=== PATIENT | female | born 1950 | race Caucasian/White ===

== ENCOUNTER → 2017-06-12 09:54 | Outpatient (CLI) | payer MEDICARE, SELFPAY ==
--- NOTE | 2017-06-12 09:56 | HPBI_ITS ---
MAMMOGRAPHY - BILATERAL SCREENING REASON FOR EXAM: Female, 67 years old. Routine annual screening examination. PERTINENT HISTORY: Mother with breast cancer. Grandmother with breast cancer. TECHNIQUE: Digital bilateral breast linn (3D mammographic acquisition) in the CC and MLO projections. 2-D mediolateral oblique (MLO) and craniocaudad (CC) views of both breasts were obtained. CAD: Full Field Digital Mammography with Computer Added Detection was performed. COMPARISON: Comparison is made with prior study dated June 09, 2016 and June 27, 2011. FINDINGS: Breast Composition: There are scattered areas of fibroglandular density. There is a 1 cm x 1 cm well-defined nodule in the deep mid medial portion of the left breast. Correlation with ultrasound is recommended. The previously seen 5 mm nodule in the right breast is unchanged. No clustered calcification is seen. No other significant abnormalities are identified. HPBI/SCREENING MAMM (CAD), BILAT IMPRESSION: 1 cm well-defined nodule in the deep medial portion of the left breast. Correlation with ultrasound is recommended. ASSESSMENT CATEGORY: BIRADS Category 0: Incomplete. Need additional imaging evaluation. A letter regarding these results will be sent to the patient by the facility within 30 days. Approximately 10% of breast cancers are not detected by mammography. A normal mammogram should not delay biopsy of a clinically suspicious abnormality. [id number] Electronically Signed: Bryn Funk MD at 12:41 EDT Tel [phone], Service support ,
== END ==
PROVIDERS: Family Provider Family Medicine; PCP Family Medicine; Visit Provider Family Medicine
DX: Z12.31 Encounter for screening mammogram for malignant neoplasm of breast (principal)
CPT/HCPCS: 77063; 77067

== ENCOUNTER → 2017-06-14 12:22 | Outpatient (CLI) | payer MEDICARE, SELFPAY ==
--- NOTE | 2017-06-14 12:25 | US_ITS ---
STUDY: ULTRASOUND BREAST - LEFT REASON FOR EXAM: Female, 67 years old. Abnormal screening mammogram. TECHNIQUE: Axial and longitudinal images of the LEFT breast were performed with a high resolution ultrasound transducer. COMPARISON: Comparison is made with prior mammogram dated June 12, 2017. FINDINGS: LEFT Breast: There is a 9 mm x 8 mm x 3 mm cyst at the 8:00 position of the breast at 5 cm from nipple. US/Breast Limited Unilateral IMPRESSION: The mammographic abnormality corresponds to a 9 mm x 8 mm x 3 mm cyst. ASSESSMENT CATEGORY: BIRADS Category 2: Benign. A letter regarding these results will be sent to the patient by the facility within 30 days. Electronically Signed: Bryn Funk MD at 8:57 EDT Tel [phone], Service support ,
== END ==
PROVIDERS: Family Provider Family Medicine; PCP Family Medicine; Visit Provider Family Medicine
DX: R92.8 Other abnormal and inconclusive findings on diagnostic imaging of breast (principal); N63.20 Unspecified lump in the left breast, unspecified quadrant
CPT/HCPCS: 76642

== ENCOUNTER → 2018-03-21 08:53 | Outpatient (CLI) | payer MEDICARE, SELFPAY ==
[2018-03-21 09:46] LABS: Erythrocyte Sedimentation Rate 28 mm/hr (0-30)
[2018-03-21 09:48] LABS: Absolute Lymphocyte Count 1.55 X10^3/ul (0.83-4.51); Absolute Neutrophil Count 3.4 X10^3/uL (2.0-7.7); Basophil# 0.02 X10^3/uL; Basophil% 0.4 % (0-1); Eosinophil# 0.18 X10^3/uL; Eosinophils% 3.2 % (0-5); Hematocrit 42.1 % (37-47); Hemoglobin 14.1 g/dl (12.0-15.0); Lymphocyte # 1.55 X10^3/ul (4.0); Lymphocyte % 27.4 % (19-41); Mean Corp Hgb Conc 33.5 g/gl (32-36); Mean Corpuscular Hgb 29.7 pg (27.0-32.0); Mean Corpuscular Volume 88.8 fL (81-99); Mean Platelet Vol. 10.8 fl (6.2-12.0); Monocyte# 0.46 X10^3/uL; Monocyte% 8.1 % (0-10); Neutrophil # 3.44 X10^3/uL (2.7-7.7); Neutrophil % 60.9 % (47-70); Platelet Count 235 K/mm3 (150-450); Red Blood Count 4.74 M/mm3 (4.2-5.4); White Blood Count 5.7 K/mm3 (4.4-11.0)
[2018-03-21 09:50] LABS: POSITIVE COUNT NO; POSITIVE DIFFERENTIAL NO; POSITIVE MORPHOLOGY NO
[2018-03-21 10:08] LABS: Anion Gap 10 (5-15); BUN 22 mg/dL (7-18); BUN/Creat Ratio 22.2 RATIO (10-20); Calcium,Total 9.6 mg/dL (8.5-10.1); Chloride 100 mmol/L (98-107); Creatinine, Serum 0.99 mg/dL (0.55-1.02); EST Glomerular Filtration Rate 59 mL/min (>60); Est Glom Filt Rate - Afr Amer 72 mL/min (>60); Glucose 119 mg/dL (74-106); Potassium 3.6 mmol/L (3.5-5.1); Sodium Level 140 mmol/L (136-145)
--- OUTSIDE RECORDS SUMMARY | 2018-06-22 09:49 | XMS RPT_ITS ---
:1950 Author Organization OHIP Care Team Providers Name Role Phone DANDRE SEGURA Attending Unavailable DANDRE SEGURA Admitting Unavailable DANDRE SEGURA Attending Unavailable ITALO ENG Referring Unavailable DANDRE SEGURA Attending Unavailable DANDRE SEGURA Attending Unavailable DANDRE SEGURA Referring Unavailable DANDRE SEGURA Admitting Unavailable DANDRE SEGURA Attending Unavailable DANDRE SEGURA Referring Unavailable Belen Chou Attending Unavailable Italo Eng Attending Unavailable Italo Eng Referring Unavailable Italo Eng Primary Care Unavailable Michael Johnson Consulting Unavailable Michael Johnson Attending Unavailable Italo Eng Referring Unavailable Del Rodriguez Attending Unavailable Velasquez, Italo Primary Care Unavailable Minotola, Italo Referring Unavailable [place], Italo Attending Unavailable Velasquez, Italo Primary Care Unavailable [place], Italo Attending Unavailable Velasquez, Italo Referring Unavailable [place], Italo Primary Care Unavailable Reanna, Maggy Attending Unavailable Italo Eng Referring Unavailable Velasquez, Italo Primary Care Unavailable Del Rodriguez Consulting Unavailable [facility] Attending Unavailable Italo Eng Referring Unavailable Velasquez, Italo Primary Care Unavailable Praneto, Del Consulting Unavailable PROBLEMS PROBLEMS DATE TYPE CONDITION / CODE ATTENDING STATUS SOURCE 03/21/2018 Unknown T81.49XA - Infection Fito Eng following a [facility] procedure, other Hospital surgical site, Repository initial encounter / T81.49XA(ICD-10) 03/21/2018 Unknown I10 - Essential Fito Eng (primary) [facility] hypertension / Hospital I10(ICD-10) Repository 01/11/2018 Unknown 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 without esophagitis [place] / K21.9(ICD-10) Repository 09/12/2017 Active Epigastric pain / IMELDA, Active [place] R10.13(ICD-10) [facility] [place] Repository 07/13/2017 Unknown D68.52 - Prothrombin Reanna, Maggy Active [place] gene mutation / Community D68.52(ICD-10) Hospital Repository 06/12/2017 Unknown Z12.31 - Encounter Fito Eng for screening [facility] mammogram for Hospital malignant neoplasm Repository of breast / Z12.31(ICD-10) PROCEDURES PROCEDURES No Procedure Records FoundRESULTS RESULTS CARDIOLOGY VISIT Observed: 03/22/2018 Status: F Source: [place] RE[place] 1:37 PM [facility] HOSPITAL REPOSITORY [facility] [address] [place] [address] OFFICE VISIT Date of Service: 03/21/18 MR#: [id number] Acct: [id number] Name: JACQUIE ALDANA I Rep #: [id number] : 1950 Provider: Michael Johnson MD Age/Sex: 67/F Location: [facility] [place] Status: Signed HPI HPI Chief Complaint: Follow-up visit Details: JACQUIE ALDANA, is a 67 F who presents to the office today for follow-up visit as well as establishment of care. She is a lady with a history of hypertension sleep apnea who had presented to the hospital in July 2016 with chest discomfort she underwent an echocardiogram with demonstrated an ejection fraction of 65% with mild concentric LVH. She also underwent a cardiac catheterization with demonstrated essentially normal coronary arteries. She has had no neck arm or jaw discomfort suggest angina no dizziness or diaphoresis no near syncope or syncope. She has been compliant with all her medications. 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 Her physical exam today demonstrates clear lung bernardo regular rate and rhythm and no pedal edema. Intake Vital Signs03/21/18 Height 4 ft 11 in Intake Visit Reasons: Transfer fr [facility] ([facility] cath 2017 [facility] Allergies epinephrine Allergy (Verified 03/21/18 08:40) Other Medications Albuterol IH (ProAir) [Proair Hfa] 2 puff INHALATION Q4H PRN PRN 07/23/16 [History Confirmed 03/21/18] Fluticasone 0.05% [Flonase Nasal [place]] 2 spray NASAL DAILY PRN 07/23/16 [History Confirmed 03/21/18] Hydrochlorothiazide [Hctz] 25 mg PO DAILY 07/23/16 [History Confirmed 03/21/18] Loratadine [Claritin] 10 mg PO DAILY 07/23/16 [History Confirmed 03/21/18] Rivaroxaban [Xarelto] 20 mg PO DAILY 07/23/16 [History Confirmed 03/21/18] Losartan Potassium [Cozaar] 100 mg PO DAILY #30 tab 07/26/16 [Rx Confirmed 03/21/18] Metoprolol Tartrate [Lopressor (beta magali)] 25 mg PO BID #60 tab 07/26/16 [Rx Confirmed 03/21/18] Meloxicam [Mobic] 15 mg PO DAILY 01/13/17 [History Confirmed 03/21/18] Oxybutynin [Ditropan] 5 mg PO BID 01/11/18 [History Confirmed 03/21/18] omeprazole 40 mg capsule,delayed release 40 mg PO DAILY 03/20/18 [History Confirmed 03/21/18] [facility] Medical History Takotsubo syndrome (Resolved 07/26/16) Demand ischemia of myocardium (Resolved 09/2015) Essential (primary) hypertension (Chronic) Factor V Leiden, prothrombin gene mutation (Chronic) Heterozygous factor V Leiden mutation (Chronic) 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) Asthma (Chronic) GERD (gastroesophageal reflux disease) (Chronic) Hearing loss (Chronic) Iron deficiency anemia (Chronic) Obstructive sleep apnea (Chronic) Osteoarthritis (Chronic) Stomach ulcer (Acute) Diverticulitis (Chronic) Clotting disorder (Inactive) History of non-ST elevation myocardial infarction (NSTEMI) (Inactive) Surgical History History of left heart catheterization (Chronic 07/26/16) H/O laparoscopy (Resolved 2016) History of hip replacement (Resolved) History of tubal ligation (Resolved) Family History Mother Breast cancer CVA (cerebral vascular accident) Hypertension Father Hypertension Colon cancer Social History Smoking Status: Former smoker ROS Const Const: Negative for fatigue, weakness, difficulty sleeping, frequent falls, excessive sweating or headache(s) Eyes Eyes: Negative for loss of peripheral vision, transient loss of vision, blurry vision, tunnel vision or double vision ENT ENT: Negative for headache(s), dizziness, Nosebleed/epistaxis or balance problems Cardio Chest Pain: Yes (Occasionally with increase activity) Palpitations: No Edema: None Muscle aches with walking: None Resp Respiratory: Positive for SOB with activity; negative for SOB at rest, SOB orthopnea\SOB lying down, paroxysmal nocturnal dyspnea or Cough GI GI: Negative nausea, heartburn, black,tarry stools or vomiting : Negative for hematuria Musc Musc: Positive for joint pain (Right hip pain); negative for balance problems, muscle aches/ myalgia or muscle weakness Skin Skin: Negative non-healing lesions, unusual bruising or rash Neuro Neuro: Positive for lack of coordination; negative for weakness, frequent falls, headache(s), blurry vision, double vision, dizziness, lightheadedness, orthostatic symptoms, near syncope or syncope Donovan Hematologic/Lymphatic: Negative for easy bruising or easy bleeding Endo Endo: Negative for fatigue, excessive sweating or increased thirst/drinking Psych Psych: Negative for anxiety or depression Allergy Allergy/Immunology: Negative for hives, Negative for rash Cardiology Exam Const Appearance: cooperative, healthy appearing, well developed, well groomed and no acute distress Nutritional Appearance: well nourished and average body habitus Orientation: alert, awake and oriented x3 Head Head: normal to inspection, normocephalic and atraumatic Ears: hearing grossly normal bilaterally and external ears normal Nose: external nose normal, nasal mucous membranes and turbinates normal, nares normal, septum normal, no nasal discharge Face and Sinus: face symmetric Mouth: oral mucosae normal, tongue normal, oropharynx normal and moist mucous membranes Teeth and gingiva: dentition normal Throat: posterior oropharynx normal, tonsils normal and uvula midline Eyes General: appearance normal, both eyes and all related structures Eyelids: eyelids normal Conjunctivae: conjunctivae normal Pupils: PERRL, normal by confrontation and accommodation normal EOM: EOM intact bilaterally Neck Neck: normal visual inspection, trachea midline and no JVD JVD: +5 Carotids: normal carotid upstroke and bounding pulses Chest Chest inspection: normal inspection of the chest, symmetric chest movement and normal respiratory effort Auscultation: Bilateral: Clear to Auscultation Cardio Palpation: normal PMI Rate: regular rate Rhythm: regular rhythm Heart sounds: S1 normal, S2 normal and normal, physiologic split S2; negative rub, gallop or murmur GI GI: normal to inspection, soft, no hepatosplenomegaly and bowel sounds present Neuro General: alert, awake, oriented x3, no focal sensory deficit, gait normal and moves all extremities Skin Skin: no rashes or lesions noted Extremities Pulses: Normal: Right Femoral Pulse, Left Femoral Pulse, Right Dorsalis Pedis Pulse, Left Dorsalis Pedis Pulse, Right Posterior Tibial Pulse, Left Posterior Tibial Pulse, Right Radial Pulse, Left Radial Pulse Lower Extremity Edema: None: Bilateral Musculoskel Musculoskeletal: No joint tenderness Psych Psychological: normal affect Assessment AND Plan 1. Essential (primary) hypertension I10 Plan Her blood pressure appears to be under excellent control at this particular time my recommendation will be for her to continue the same without as making any changes. 2. Takotsubo syndrome I51.81 Plan This appears to have resolved her most recent echocardiogram demonstrated preserved ejection fraction of 65%. No wall motion abnormalities are noted. 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) Coding Level of Care Code Off vis,est,level 3 Diagnoses Essential (primary) hypertension I10 Takotsubo syndrome I51.81 Coding Level of Care Code Off vis,est,level 3 Diagnoses Essential (primary) hypertension I10 Takotsubo syndrome I51.81 03/22/18 1337 <Electronically signed by Michael Johnson MD> Date Michael Johnson MD Cosigner Signature: Date (if applicable) CC: Italo Eng DO ERYTHROCYTE SED RATE Collected: 03/21/2018 Status: F Source: [place] 9:09 AM [facility] REPOSITORY TYPE CODE TESTS RESULT OUT OF RANGE REFERENCE UNITS LAB L102.0000 0-30 mm/hr Normal SED RATE 28 Performed By: #### L101.9900, L100.0100 #### [facility] [address] [place], [address] CBC W/DIFF, AUTOMATED Collected: 03/21/2018 Status: F Source: [place] 9:09 AM [facility] REPOSITORY TYPE CODE TESTS RESULT OUT OF RANGE REFERENCE UNITS LAB L100.1000 4.4-11.0 K/mm3 Normal WBC 5.7 LAB L100.1200 4.2-5.4 M/mm3 Normal RBC 4.74 LAB L100.1300 12.0-15.0 g/dl Normal HGB 14.1 LAB L100.1400 37-47 % Normal HCT 42.1 LAB L100.1500 81-99 fL Normal MCV 88.8 LAB L100.1600 27.0-32.0 pg Normal MCH 29.7 LAB L100.1700 32-36 g/gl Normal MCHC 33.5 LAB L100.1810 11.6-14.6 % Normal RDW CV 13.0 LAB L100.1820 35.1-43.9 fl Normal RDW SD 42.0 LAB L100.1900 150-450 K/mm3 Normal PLT 235 LAB L100.2000 6.2-12.0 fl Normal MPV 10.8 LAB L100.2100 47-70 % Normal NEUT% 60.9 LAB L100.2200 19-41 % Normal LY% 27.4 LAB L100.2300 0-10 % Normal MONO% 8.1 LAB L100.2400 0-5 % Normal EO% 3.2 LAB L100.2500 0-1 % Normal BASO% 0.4 LAB L100.2550 0.0-0.9 % Normal IM GRAN % 0.000 Result Comment: IG% - Immature Granulocytes (promyelocytes, myelocytes and metamyelocytes) > 1% indicates that a LEFT SHIFT is Present. LAB L100.2620 2.0-7.7 X10 3/uL Normal Absolute Neut 3.4 LAB L100.2720 0.83-4.51 X10 3/ul Normal Absolute Lymph 1.55 Performed By: #### L101.9900, L100.0100 #### [facility] [address] [facility] [address] [facility] [place], [place], [address] BASIC METABOLIC Collected: 03/21/2018 Status: F Source: [place] PROFILE (BMP) 9:09 AM [facility] REPOSITORY TYPE CODE TESTS RESULT OUT OF RANGE REFERENCE UNITS LAB L501.0100 74-106 mg/dL High GLU 119 Result Comment: Fasting Glucose result from 100 to 125 mg/dL suggests IMPAIRED HOMEOSTASIS per A.D.A. criteria. Please note revised GLUCOSE reference range effective 2017. LAB L501.1000 7-18 mg/dL High BUN 22 LAB L501.1100 0.55-1.02 mg/dL Normal CREAT,SERUM 0.99 Result Comment: The validity of the calculated GFR AND GFRAA in patients over 70 years has not been determined. Clinical correlation is essential. LAB L501.1110 >60 mL/min Low EST GFR 59 Result Comment: Non- GFR Calc LAB L501.1115 >60 mL/min Normal EST GFR - AA 72 Result Comment: GFR Calc LAB L501.1300 10-20 RATIO High BUN/CRE 22.2 LAB L501.2200 8.5-10.1 mg/dL CA Normal 9.6 LAB L501.5300 136-145 mmol/L NA Normal 140 LAB L501.5600 3.5-5.1 mmol/L K Normal 3.6 LAB L501.5900 98-107 mmol/L CL Normal 100 LAB L501.6100 21.0-32.0 mmol/L Normal CO2 30.0 LAB L501.6200 5-15 Normal GAP 10 Performed By: #### L500.2500 #### [facility] [address] [place], [address] ONCOLOGY VISIT REPORT Observed: 01/11/2018 Status: F Source: [place] 1:46 PM [facility] REPOSITORY [facility] [address] [place] [address] OFFICE VISIT Date of Service: 01/11/18 1331 MR#: [id number] Acct: [id number] Name: JACQUIE ALDANA I Rep #: [id number] : 1950 From: Del Rodriguez MD Age/Sex: 67/F Location: [facility] Status: Signed Subjective - Date of Service Date of Service:: 01/11/18 - Chief Complaint F/u for thrombophilia. 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 In January 2016, she was found to have Heterozygous Factor V Leiden mutation as well as Heterozygous Prothrombin gene mutation. She developed acute unprovoked DVT Left lower extremity on 03/14/2016 and was placed on Xarelto for life. She remains on Xarelto. - Past Medical/Social History Past Medical History Past Medical History: Blood transfusion,Clotting disorder,Heart disease,Hypertension Other Past Medical History: FACTOR V LEIDEN MUTATION Past Surgical History Surgical: Hip replacement,Tubal ligation Other Surgical History: COLONOSCOPY HIP REPLACEMENT X2 INFECTION (POST OP) Family History Paternal Past Medical History: Hypertension Paternal History of Cancer Colon cancer Maternal Past Medical History: Hypertension,Stroke Maternal History of Cancer: Breast cancer,Other Social History Smoking Status Former smoker Review of Systems Constitutional:: Denies: Fever, Sweats, Weight loss, Appetite change, Chills Cardiovascular:: Denies: Chest pain, Palpitations, Dyspnea on exertion, Orthopnea, PND, Shortness of breath Respiratory: Denies: Cough, Hemoptysis, Shortness of Breath, Wheezing Gastrointestinal:: Denies: Abdominal pain, Nausea, Vomiting, Diarrhea, Constipation, Hematochezia Genitourinary: Denies: Dysuria, Hematuria, 15, Flank pain Musculoskeletal:: Reports: Arthritis - Knees.. Denies: Back pain, Myalgia, Arthralgia Skin: Denies: Rash, Skin Changes, Wounds Neurological:: Denies: Headache, Dizziness, Visual changes, Tinnitus, Hearing loss Psychiatric: Denies: Anxiety, Depression, Homicidal Ideations, Suicidal Ideations Vital Signs Height 5 ft 1 in Weight: 97.522 kg Weight in Pounds 215.0 lbs Pulse Ox 95 - Physical Exam General: Alert, Oriented x3, No apparent distress HEENT: Atraumatic, PERRLA, EOMI, Normocephalic Oropharynx:: Dry mucosa Neck:: Supple, Trachea midline. Negative for: JVD, bilateral Cardiac:: Regular rate, Regular rhythm, Normal S1, Normal S2. Negative for: Murmur Lungs: Clear to auscultation, Excusion symmetrical. Negative for: Rhonchi, Wheezes Skin:: Negative for: Lesions, Rash, Petechiae, Ecchymosis Laboratory Data: Laboratory Tests WBC 7.2 (4.4-11.0) K/mm3 RBC 4.38 (4.2-5.4) M/mm3 Hgb 12.9 (12.0-15.0) g/dl Assessment and Plan Thromboembolism-heterozygous Factor V Leiden and Prothrombin gene mutation. On Xarelto. Clinically stable. Plan is to continue Xarelto. RTC 6 months with CBC/CMP. Medications: Prescriptions This Visit Medication Instructions Recorded Rivaroxaban [Xarelto] 20 mg PO DAILY 30 Days #90 tab 07/13/17 Oxybutynin [Ditropan] 5 mg PO BID 01/11/18 Prevacid 01/11/18 Primary Care Provider: Italo Eng Referring Provider: Italo Eng - Problem List (1) Factor V Leiden, prothrombin gene mutation Status: Chronic (2) Heterozygous factor V Leiden mutation Status: Chronic (3) Heterozygous for prothrombin [id number] mutation Status: Chronic Code Visit Office Visits / Consults: 10166 OV L3 Est 01/11/18 1346 <Electronically signed by Del Rodriguez MD> Date Del Rodriguez MD Cosigner Signature: Date (if applicable) CC: CBC W/DIFF, AUTOMATED Collected: 01/11/2018 Status: F Source: [place] 12:57 PM [facility] REPOSITORY Order Comment: Reason for Laboratory Test . TYPE CODE TESTS RESULT OUT OF RANGE REFERENCE UNITS LAB L100.1000 4.4-11.0 K/mm3 Normal WBC 7.2 LAB L100.1200 4.2-5.4 M/mm3 Normal RBC 4.38 LAB L100.1300 12.0-15.0 g/dl Normal HGB 12.9 LAB L100.1400 37-47 % Normal HCT 39.4 LAB L100.1500 81-99 fL Normal MCV 90.0 LAB L100.1600 27.0-32.0 pg Normal MCH 29.5 LAB L100.1700 32-36 g/gl Normal MCHC 32.7 LAB L100.1810 11.6-14.6 % Normal RDW CV 13.2 LAB L100.1820 35.1-43.9 fl Normal RDW SD 42.6 LAB L100.1900 150-450 K/mm3 Normal PLT 230 LAB L100.2000 6.2-12.0 fl Normal MPV 10.1 LAB L100.2100 47-70 % Normal NEUT% 60.3 LAB L100.2200 19-41 % Normal LY% 28.5 LAB L100.2300 0-10 % Normal MONO% 5.4 LAB L100.2400 0-5 % High EO% 5.3 LAB L100.2500 0-1 % Normal BASO% 0.4 LAB L100.2550 0.0-0.9 % Normal IM GRAN % 0.100 Result Comment: IG% - Immature Granulocytes (promyelocytes, myelocytes and metamyelocytes) > 1% indicates that a LEFT SHIFT is Present. LAB L100.2620 2.0-7.7 X10 3/uL Normal Absolute Neut 4.3 LAB L100.2720 0.83-4.51 X10 3/ul Normal Absolute Lymph 2.05 Performed By: #### L100.0100 #### [facility] [address] [place], [place], [address] COMPREHENSIVE METABOLIC Collected: 01/11/2018 Status: F Source: [facility] 12:57 PM [facility] REPOSITORY Order Comment: Reason for Laboratory Test . TYPE CODE TESTS RESULT OUT OF RANGE REFERENCE UNITS LAB L501.0100 74-106 mg/dL Normal GLU 77 Result Comment: Please note revised GLUCOSE reference range effective 2017. LAB L501.1000 7-18 mg/dL High BUN 25 LAB L501.1100 0.55-1.02 mg/dL High CREAT,SERUM 1.10 Result Comment: The validity of the calculated GFR AND GFRAA in patients over 70 years has not been determined. Clinical correlation is essential. LAB L501.1110 >60 mL/min Low EST GFR 53 Result Comment: Non- GFR Calc LAB L501.1115 >60 mL/min Normal EST GFR - AA 64 Result Comment: GFR Calc LAB L501.1255 ml/min Normal Estimated CRCL 37.96 LAB L501.1300 10-20 RATIO High BUN/CRE 22.7 LAB L501.1500 6.4-8. g/dL Normal 2 T PROT 7.5 LAB L501.1800 3.2-5. g/dL Normal 0 ALB 3.9 LAB L501.1950 2.2-4. g/dL Normal 2 GLOB 3.6 LAB L501.2000 0.9-2. RATIO Normal 4 A/G 1.1 LAB L501.2200 8.5-10 mg/dL Normal .1 CA 9.1 LAB L501.4100 15-37 U/L Low AST 13 LAB L501.4305 45-117 U/L Normal ALK P 79 LAB L501.4405 13-56 U/L Normal ALT 26 LAB L501.4600 0.20-1 mg/dL Normal .00 T BILI 0.70 LAB L501.5300 136-14 mmol/L Normal 5 NA 140 LAB L501.5600 3.5-5. mmol/L Normal 1 K 4.1 LAB L501.5900 98-107 mmol/L Normal CL 105 LAB L501.6100 21.0-3 mmol/L Normal 2.0 CO2 32.0 LAB L501.6200 5-15 Low GAP 3 Performed By: #### L500.4050 #### [facility] [address] [place], [address] PROGRESS Observed: 10/31/2017 Status: COMPLETED Source: [place] 8:08 PM [facility] [place] REPOSITORY HNO ID: [id number] Author: Dandre Segura Service: (none) Author Type: Physician Type: Progress Notes Filed: 10/31/2017 8:11 PM Note Text: FOLLOW UP VISIT - ENDOSCOPY NAME: Jacquie Gaffney [facility] NO.: [id number] DATE OF SERVICE: 09/19/2017 : 1950 REFERRING PHYSICIAN: Italo Eng DO Jacquie notes no current colon complaints, but I had seen her for diverticulitis in the past when she required a laparoscopic washout. She has had no colon challenges since that time. More recently, Jacquie notes epigastric pain for approximately one month. She notes the pain is significantly improved after she eats food, specifically yogurt . Jacquie has undergone prior endoscopy, She had colonoscopy performed by Dr. Yanez 1-1/2 years previously which demonstrate diverticulosis. She has not had upper endoscopy. I performed upper endoscopy on September 12, 2017. The patient was found to have a superficial gastric ulcer with no significant bleeding. There was a crater duodenal ulcer. Pathology demonstrated: Reactive gastropathy and intestinal metaplasia for the antral area. No H. pylori organisms were noted The patient notes no complaints since the procedure. She underwent follow-up upper endoscopy on October 24, 2017. This demonstrated complete healing of the duodenal ulcer and very mild gastritis. Pathology returned as: FINAL DIAGNOSIS Stomach, antrum, biopsy - Gastric antral-type mucosa with mild reactive epithelial changes. - No intestinal metaplasia or morphologic evidence of Helicobacter pylori organisms. VITALS: There were no vitals taken for this visit. On examination, the abdomen is benign. Assessment IMPRESSION: Duodenal and gastric ulcers PLAN: If the patient notes any problems or changes in bowel function, the patient should contact me immediately. The patient should be maintained on proton pump inhibitors. Diagnoses: (K26.9) Duodenal ulcer without hemorrhage or perforation and without obstruction (primary encounter diagnosis) Return to Clinic: The patient is instructed to follow- up with me as needed. Dandre Segura MD CNOV Observed: 10/31/2017 Status: COMPLETED Source: [place] 1:40 PM [facility] REPOSITORY Office Visit (GENSWS) JACQUIE ALDANA I ([id number]) 1950 F Date Time Provider Department 10/31/17 1:40 PM DANDRE SEGURA GENMARI During your visit today, we recorded the following information about you: Dandre Segura MD 10/31/2017 8:11 PM Signed FOLLOW UP VISIT - ENDOSCOPY [id number] DATE OF SERVICE: 09/19/2017 : 1950 REFERRING PHYSICIAN: Italo Eng DO Jacquie notes no current colon complaints, but I had seen her for diverticulitis in the past when she required a laparoscopic washout. She has had no colon challenges since that time. More recently, Jacquie notes epigastric pain for approximately one month. She notes the pain is significantly improved after she eats food, specifically yogurt . Jacquie has undergone prior endoscopy, She had colonoscopy performed by Dr. Yanez 1-1/2 years previously which demonstrate diverticulosis. She has not had upper endoscopy. I performed upper endoscopy on September 12, 2017. The patient was found to have a superficial gastric ulcer with no significant bleeding. There was a crater duodenal ulcer. Pathology demonstrated: Reactive gastropathy and intestinal metaplasia for the antral area. No H. pylori organisms were noted The patient notes no complaints since the procedure. She underwent follow-up upper endoscopy on October 24, 2017. This demonstrated complete healing of the duodenal ulcer and very mild gastritis. Pathology returned as: FINAL DIAGNOSIS Stomach, antrum, biopsy - Gastric antral-type mucosa with mild reactive epithelial changes. - No intestinal metaplasia or morphologic evidence of Helicobacter pylori organisms. VITALS: There were no vitals taken for this visit. On examination, the abdomen is benign. Assessment IMPRESSION: Duodenal and gastric ulcers PLAN: If the patient notes any problems or changes in bowel function, the patient should contact me immediately. The patient should be maintained on proton pump inhibitors. Diagnoses: (K26.9) Duodenal ulcer without hemorrhage or perforation and without obstruction (primary encounter diagnosis) Return to Clinic: The patient is instructed to follow- up with me as needed. Dandre Segura MD Referring Provider: SELF [[id number]] Allergies As of Date: 10/31/2017 Noted Allergy Reaction SEASONAL ALLERGIES 07/15/2013 14 - Other: See Comments Comments: Nasal congestion. Gets allergy injections. Date Reviewed: 10/31/2017 Reviewed by: Dandre Segura - Fully Assessed Reason for Visit: Post Op [174] Primary Visit Diagnosis:Duodenal ulcer without hemorrhage or perforation and without obstruction [K26.9] Prescriptions as of 10/31/2017 Sig: OMEPRAZOLE 40 MG CAPSULE,CASANDRA* Take 1 capsule by mouth twice* LOSARTAN 100 MG TABLET Take 100 mg by mouth once liliana* ASPIRIN 81 MG CHEWABLE TABLET Take 81 mg by mouth once moses* ALBUTEROL INHALATION Inhale as instructed as need* HYDROCHLOROTHIAZIDE 25 MG TAB* Take 25 mg by mouth once moses* METOPROLOL TARTRATE 50 MG TAB* Take 50 mg by mouth twice liliana* MELOXICAM 15 MG TABLET Take 15 mg by mouth once moses* RIVAROXABAN 20 MG TABLET Take 20 mg by mouth daily wit* CLARITIN ORAL Take by mouth. * TYLENOL PM 25 MG-500 MG/15 ML* Take as needed Problem List As Of Date: 10/31/2017 (None) Letter Text Encounter Status:Closed by DANDRE SEGURA MD on 10/31/17 NURSING PROG Observed: 10/24/2017 Status: COMPLETED Source: [place] 12:45 PM [facility] REPOSITORY HNO ID: [id number] Author: Erendira DietzRn) JUWAN Ralph Service: Nursing Author Type: Registered Nurse Type: Nursing Progress Note Filed: 10/24/2017 12:45 PM Note Text: Patient did not experience a fall prior to discharge. Patient did not experience a burn prior to discharge. Erendira Ralph RN PT ED Observed: 10/24/2017 Status: COMPLETED Source: [place] 12:28 PM [facility] REPOSITORY HNO ID: [id number] Author: Erendira DietzRn) JUWAN Ralph Service: Nursing Author Type: Registered Nurse Type: Patient Education Filed: 10/24/2017 12:28 PM Note Text: POST OP LEARNING RESPONSE INSTRUCTION PROVIDED TO: Patient and Spouse METHOD OF INSTRUCTION: Written instruction - handouts Verbal instruction PATIENT / FAMILY RESPONSE: Verbalizes understanding of: INFECTION MANAGEMENT-Signs and symptoms of an infection and importance of contacting the physician PHYSICAL RESTRICTIONS-Physical restrictions and recommendations after discharge from the hospital POST-PROCEDURE INSTRUCTIONS-Correct actions to take to reduce post procedure complications PATIENT SAFETY PRINCIPLES WORSENING CONDITION-Signs and symptoms of a worsening condition that warrant a call to the physician FOLLOW-UP PLAN: Patient instructed to call with any further issues Follow up phone call. SUPPLEMENTAL MATERIAL: Procedure discharge instructions REFERRAL (RECOMMENDATION): None Electronically Signed By: Erendira Ralph RN In Department: AMBULATORY SURGERY NURSING PROG Observed: 10/24/2017 Status: COMPLETED Source: [place] 12:15 PM [facility] REPOSITORY HNO ID: [id number] Author: Erendira DietzRn) JUWAN Ralph Service: Nursing Author Type: Registered Nurse Type: Nursing Progress Note Filed: 10/24/2017 12:16 PM Note Text: Dr. Segura at bedside with patient and patient's . Outcome of procedure reviewed with patient and questions answered. Erendira Ralph RN NURSING PROG Observed: 10/24/2017 Status: COMPLETED Source: [place] 12:05 PM [facility] REPOSITORY HNO ID: [id number] Author: Inessa Bagley RN Service: Nursing Author Type: Registered Nurse Type: Nursing Progress Note Filed: 10/24/2017 12:06 PM Note Text: Patient did not experience a fall within the Intraoperative area. Patient did not experience a burn within the Intraoperative area. Inessa Bagley RN NURSING PROG Observed: 10/24/2017 Status: COMPLETED Source: [place] 11:26 AM [facility] REPOSITORY HNO ID: [id number] Author: Lissy Randolph RN Service: (none) Author Type: Registered Nurse Type: Nursing Progress Note Filed: 10/24/2017 11:28 AM Note Text: [facility] PRE-OP NURSING HAND OFF NOTE SBAR Hand off given to Inessa Bagley RN. Hand off was communicated verbally and at the patient's bedside and all questions were answered. FALLS/NORRIS Patient did not experience a fall within the Preoperative area. Patient did not experience a burn within the Preoperative area. Lissy Randolph RN PT ED Observed: 10/24/2017 Status: COMPLETED Source: [place] 10:14 AM [facility] REPOSITORY HNO ID: [id number] Author: Lissy Randolph RN Service: (none) Author Type: Registered Nurse Type: Patient Education Filed: 10/24/2017 10:15 AM Note Text: Discharge Instructions were reviewed pre-operatively with the patient. All questions and concerns were addressed. Lissy Randolph RN PRE OP LEARNING ASSESSMENT PROCEDURE/SURGERY: GI PROCEDURES: EGD READINESS TO LEARN COGNITIVE ABILITY: Alert and oriented MOTIVATION TO LEARN: Interested FAMILY SUPPORT: Unable to assess - Family not present PATIENT LEARNS BEST BY: Multiple Methods FACTORS AFFECTING LEARNING: None PHYSICAL LIMITATIONS AFFECTING LEARNING: None Electronically Signed By: Lissy Randolph RN In Department: AMBULATORY SURGERY HISTORY PHYSICAL Observed: 10/24/2017 Status: COMPLETED Source: [place] 9:33 AM [facility] REPOSITORY HNO ID: [id number] Author: Dandre Segura Service: General Surgery Author Type: Physician Type: HANDP Filed: 10/24/2017 9:33 AM Note Text: FOLLOW UP VISIT - ENDOSCOPY ? ? NAME: Jacquie Gaffney [facility] NO.: [id number] DATE OF SERVICE: 09/19/2017 ? ? : 1950 ? ? REFERRING PHYSICIAN: Italo Eng, DO ? Jacquie notes no current colon complaints, but I had seen her for diverticulitis in the past when she required a laparoscopic washout. She has had no colon challenges since that time. ? More recently, Jacquie notes epigastric pain for approximately one month. She notes the pain is significantly improved after she eats food, specifically yogurt . ? Jacquie has undergone prior endoscopy, She had colonoscopy performed by Dr. Yanez 1-1/2 years previously which demonstrate diverticulosis. She has not had upper endoscopy. ? I performed upper endoscopy on September 12, 2017. The patient was found to have a superficial gastric ulcer with no significant bleeding. There was a crater duodenal ulcer. ? Pathology demonstrated: ? Reactive gastropathy and intestinal metaplasia for the antral area. No H. pylori organisms were noted ? The patient notes no complaints since the procedure. ? VITALS: There were no vitals taken for this visit. ? ? On examination, the abdomen is benign. ? ? Assessment IMPRESSION: Duodenal and gastric ulcers ? PLAN: If the patient notes any problems or changes in bowel function, the patient should contact me immediately. Otherwise I recommend follow up endoscopy in approximately one month to assure healing. The patient should be maintained on proton pump inhibitors. ? ? Diagnoses: (K26.9) Duodenal ulcer without hemorrhage or perforation and without obstruction (primary encounter diagnosis) ? Return to Clinic: The patient is instructed to follow-up with me in 1 month. ? ? ? Dandre Segura MD ? SURGICAL PATHOLOGY Observed: 10/24/2017 Status: F Source: [place] 12:00 AM [facility] REPOSITORY Specimen originated from [facility] Specimen #: [id number] Submitting Physician: DANDRE SEGURA ([id number]) FINAL DIAGNOSIS Stomach, antrum, biopsy - Gastric antral-type mucosa with mild reactive epithelial changes. - No intestinal metaplasia or morphologic evidence of Helicobacter pylori organisms. ES/db 10/25/2017 Irma Friedman M.D. (Electronic Signature) SPECIMEN SUBMITTED A: ANTRUM, BIOPSY H/H CLINICAL DATA K26.9 GROSS DESCRIPTION A. Received in formalin is one piece of mariee, soft tissue measuring 0.6 x 0.2 x 0.1 cm. Totally submitted in one c Gross examination performed at [facility], [address] [place] [address] 10/25/2017 1:51:10 AM [place]. Date of Report: 10/25/2017 Date of Procedure: 10/24/2017 Date of Receipt: 10/24/2017 Submitted by: DANDRE SEGURA ([id number]) [facility] performed at [facility], [address] [place] [address]. PROGRESS Observed: 09/23/2017 Status: COMPLETED Source: [place] 5:28 PM [facility] REPOSITORY O ID: [id number] Author: Dandre Segura Service: (none) Author Type: Physician Type: Progress Notes Filed: 09/23/2017 5:31 PM Note Text: FOLLOW UP VISIT - ENDOSCOPY NAME: Jacquie Gaffney [facility] NO.: [id number] DATE OF SERVICE: 09/19/2017 : 1950 REFERRING PHYSICIAN: Italo Eng DO Jacquie notes no current colon complaints, but I had seen her for diverticulitis in the past when she required a laparoscopic washout. She has had no colon challenges since that time. More recently, Jacquie notes epigastric pain for approximately one month. She notes the pain is significantly improved after she eats food, specifically yogurt . Jacquie has undergone prior endoscopy, She had colonoscopy performed by Dr. Yanez 1-1/2 years previously which demonstrate diverticulosis. She has not had upper endoscopy. I performed upper endoscopy on September 12, 2017. The patient was found to have a superficial gastric ulcer with no significant bleeding. There was a crater duodenal ulcer. Pathology demonstrated: Reactive gastropathy and intestinal metaplasia for the antral area. No H. pylori organisms were noted The patient notes no complaints since the procedure. VITALS: There were no vitals taken for this visit. On examination, the abdomen is benign. Assessment IMPRESSION: Duodenal and gastric ulcers PLAN: If the patient notes any problems or changes in bowel function, the patient should contact me immediately. Otherwise I recommend follow up endoscopy in approximately one month to assure healing. The patient should be maintained on proton pump inhibitors. Diagnoses: (K26.9) Duodenal ulcer without hemorrhage or perforation and without obstruction (primary encounter diagnosis) Return to Clinic: The patient is instructed to follow- up with me in 1 month. Dandre Segura MD CNOV Observed: 09/19/2017 Status: COMPLETED Source: [place] 2:30 PM [facility] REPOSITORY Office Visit (GENSWS) JACQUIE ALDANA I ([id number]) 1950 F Date Time Provider Department 09/19/17 2:30 PM DANDRE SEGURA During your visit today, we recorded the following information about you: Dandre Segura MD 09/23/2017 5:31 PM Signed FOLLOW UP VISIT - ENDOSCOPY NAME: Jacquie Aldana [facility] NO.: [id number] DATE OF SERVICE: 09/19/2017 : 1950 REFERRING PHYSICIAN: Italo Eng DO Jacquie notes no current colon complaints, but I had seen her for diverticulitis in the past when she required a laparoscopic washout. She has had no colon challenges since that time. More recently, Jacquie notes epigastric pain for approximately one month. She notes the pain is significantly improved after she eats food, specifically yogurt . Jacquie has undergone prior endoscopy, She had colonoscopy performed by Dr. Yanez 1-1/2 years previously which demonstrate diverticulosis. She has not had upper endoscopy. I performed upper endoscopy on September 12, 2017. The patient was found to have a superficial gastric ulcer with no significant bleeding. There was a crater duodenal ulcer. Pathology demonstrated: Reactive gastropathy and intestinal metaplasia for the antral area. No H. pylori organisms were noted The patient notes no complaints since the procedure. VITALS: There were no vitals taken for this visit. On examination, the abdomen is benign. Assessment IMPRESSION: Duodenal and gastric ulcers PLAN: If the patient notes any problems or changes in bowel function, the patient should contact me immediately. Otherwise I recommend follow up endoscopy in approximately one month to assure healing. The patient should be maintained on proton pump inhibitors. Diagnoses: (K26.9) Duodenal ulcer without hemorrhage or perforation and without obstruction (primary encounter diagnosis) Return to Clinic: The patient is instructed to follow- up with me in 1 month. Dandre Segura MD Referring Provider: DANDRE SEGURA [[id number]] Allergies As of Date: 09/19/2017 Noted Allergy Reaction SEASONAL ALLERGIES 07/15/2013 14 - Other: See Comments Comments: Nasal congestion. Gets allergy injections. Date Reviewed: 09/19/2017 Reviewed by: Dandre Segura - Fully Assessed Reason for Visit: Post Op [174] Primary Visit Diagnosis:Duodenal ulcer without hemorrhage or perforation and without obstruction [K26.9] Prescriptions as of 09/19/2017 Sig: OMEPRAZOLE 40 MG CAPSULE,CASANDRA* Take 1 capsule by mouth twice* LOSARTAN 100 MG TABLET Take 100 mg by mouth once liliana* ASPIRIN 81 MG CHEWABLE TABLET Take 81 mg by mouth once moses* ALBUTEROL INHALATION Inhale as instructed as need* HYDROCHLOROTHIAZIDE 25 MG TAB* Take 25 mg by mouth once moses* METOPROLOL TARTRATE 50 MG TAB* Take 50 mg by mouth twice liliana* MELOXICAM 15 MG TABLET Take 15 mg by mouth once moses* RIVAROXABAN 20 MG TABLET Take 20 mg by mouth daily wit* CLARITIN ORAL Take by mouth. * TYLENOL PM 25 MG-500 MG/15 ML* Take as needed Problem List As Of Date: 09/19/2017 (None) Letter Text Encounter Status:Closed by DANDRE SEGURA MD on 09/23/17 HOSP Observed: 09/19/2017 Status: COMPLETED Source: [place] 12:00 AM [facility] REPOSITORY Patient:Jacquie Aldana I MRN: <[id number]> Height:5' 1(1.549 m) Weight:No patient weight recorded within the last 30 days. Outpatient Medications as of 10/24/17: Omeprazole (PRILOSEC) 40 mg capsule losartan (COZAAR) 100 mg tablet aspirin 81 mg chewable tablet ALBUTEROL INHALATION hydroCHLOROthiazide (HYDRODIURIL, ESIDRIX) 25 mg tablet metoprolol tartrate, short acting, (LOPRESSOR) 50 mg tablet meloxicam (MOBIC) 15 mg tablet rivaroxaban (XARELTO) 20 mg tablet LORATADINE (CLARITIN ORAL) acetaminophen/dp-hydram hcl(TYLENOL PM 25 MG-500 MG/15 ML ORAL SOLN) Admission/Clinic Administered Medications as of 10/24/17: lactated ringers infusion Problem List: No problem list on file for this patient. Allergies: Seasonal Allergies Date Verified: 10/24/17 Lab Values No results within the last 30 days for the following basenames: K,HCT No progress notes entered within the past 30 days NURSING PROG Observed: 09/12/2017 Status: COMPLETED Source: [place] 12:30 PM [facility] REPOSITORY HNO ID: [id number] Author: Lissy Randolph RN Service: (none) Author Type: Registered Nurse Type: Nursing Progress Note Filed: 09/12/2017 12:37 PM Note Text: Patient did not experience a fall prior to discharge. Patient did not experience a burn prior to discharge. Lissy Randolph RN PT ED Observed: 09/12/2017 Status: COMPLETED Source: [place] 12:27 PM [facility] REPOSITORY HNO ID: [id number] Author: Lissy Randolph RN Service: (none) Author Type: Registered Nurse Type: Patient Education Filed: 09/12/2017 12:28 PM Note Text: POST OP LEARNING RESPONSE INSTRUCTION PROVIDED TO: Patient and family member METHOD OF INSTRUCTION: Individual instruction Written instruction - handouts Verbal instruction PATIENT / FAMILY RESPONSE: Information received as demonstrated by interest and questions FOLLOW-UP PLAN: Follow up phone call. Contact information given. Followup appointment with Dr. Segura in one week--scheduled SUPPLEMENTAL MATERIAL: Procedure discharge instructions REFERRAL (RECOMMENDATION): None Electronically Signed By: Lissy Randolph RN In Department: AMBULATORY SURGERY NURSING PROG Observed: 09/12/2017 Status: COMPLETED Source: [place] 11:36 AM [facility] REPOSITORY HNO ID: [id number] Author: Lsisy Randolph RN Service: (none) Author Type: Registered Nurse Type: Nursing Progress Note Filed: 09/12/2017 12:09 PM Note Text: Arrived in phase II via cart. Left lateral position. Sedated, but responds to verbal stimuli. Color normal; skin warm and dry. Respirations wnl and unlabored. Abdomen soft and with + bowel sounds in quads X 4. Family at bedside. Patient resting comfortably. Dr. Peng at bedside to review procedure and recommendations. Lissy Randolph RN NURSING PROG Observed: 09/12/2017 Status: COMPLETED Source: [place] 11:35 AM [facility] REPOSITORY HNO ID: [id number] Author: Inessa Bagley RN Service: Nursing Author Type: Registered Nurse Type: Nursing Progress Note Filed: 09/12/2017 11:35 AM Note Text: Patient did not experience a fall within the Intraoperative area. Patient did not experience a burn within the Intraoperative area. Inessa Bagley RN NURSING PROG Observed: 09/12/2017 Status: COMPLETED Source: [place] 11:10 AM [facility] REPOSITORY HNO ID: [id number] Author: Marzena Duran RN Service: (none) Author Type: Registered Nurse Type: Nursing Progress Note Filed: 09/12/2017 12:10 PM Note Text: [facility] PRE-OP NURSING HAND OFF NOTE SBAR Hand off given to Inessa Bagley RN. Hand off was communicated verbally and at the patient's bedside and all questions were answered. FALLS/NORRIS Patient did not experience a fall within the Preoperative area. Patient did not experience a burn within the Preoperative area. Marzena Duran RN NURSING PROG Observed: 09/12/2017 Status: COMPLETED Source: [place] 11:00 AM [facility] REPOSITORY HNO ID: [id number] Author: Lissy Randolph RN Service: (none) Author Type: Registered Nurse Type: Nursing Progress Note Filed: 09/12/2017 12:08 PM Note Text: [facility] PRE-OP NURSING HAND OFF NOTE SBAR Hand off given to Marzena Duran RN. Hand off was communicated verbally and at the patient's bedside and all questions were answered. Lissy Randolph RN HISTORY PHYSICAL Observed: 09/12/2017 Status: COMPLETED Source: [place] 10:27 AM [facility] REPOSITORY HNO ID: [id number] Author: Dandre Segura Service: General Surgery Author Type: Physician Type: HANDP Filed: 09/12/2017 10:27 AM Note Text: HISTORY AND PHYSICAL ? Jacquie Gaffney [place] 1950 ? REFERRING PHYSICIAN: Self ? CHIEF COMPLAINT: Established Patient (Stomach pain) ? HPI: The patient is a 67 year old female referred for endoscopy. Jacquie notes no current colon complaints, but I had seen her for diverticulitis in the past when she required a laparoscopic washout. She has had no colon challenges since that time. ? More recently, Jacquie notes epigastric pain for approximately one month. She notes the pain is significantly improved after she eats food, specifically yogurt . ? Jacquie has undergone prior endoscopy, She had colonoscopy performed by Dr. Yanez 1-1/2 years previously which demonstrate diverticulosis. She has not had upper endoscopy. ? The patient is being seen by me today at the request of Dr. Italo Eng, DO for my opinion and advice regarding epigastric pain. ? ? PAST MEDICAL HISTORY PAST MEDICAL HISTORY Diagnosis Date - Breast cyst ? - Hemorrhoids ? - Hypercholesteremia ? - Hypercoagulopathy (HCC) ? - Hypertension ? - Reflux ? ? ? PAST SURGICAL HISTORY PAST SURGICAL HISTORY Procedure Laterality Date - CYST ASPIRATION ? ? ? Bilateral Breast - [facility] DIAG AND/OR THERAP, NOT OB ? ? - L'SCOPE DX W/WO BRUSHINGS/WASHINGS ? 01/17/2017 ? Laparoscopy, peritoneal wash out and culture [facility] - TOTAL HIP REPLACEMENT Right 09/2015 ? revision 10/16 ? ? ? CURRENT MEDICATIONS ? Current Outpatient Prescriptions: losartan (COZAAR) 100 mg tablet Take 100 mg by mouth once daily. aspirin 81 mg chewable tablet Take 81 mg by mouth once daily. hydroCHLOROthiazide (HYDRODIURIL, ESIDRIX) 25 mg tablet Take 25 mg by mouth once daily. metoprolol tartrate, short acting, (LOPRESSOR) 50 mg tablet Take 50 mg by mouth twice daily. meloxicam (MOBIC) 15 mg tablet Take 15 mg by mouth once daily. rivaroxaban (XARELTO) 20 mg tablet Take 20 mg by mouth daily with dinner. LORATADINE (CLARITIN ORAL) Take by mouth. oxyCODONE IR (ROXICODONE) 5 mg immediate release tablet Take 25 mg by mouth twice daily. ALBUTEROL INHALATION Inhale as instructed as needed. IRON PS CMPLX/VIT B12/FA (FERREX 150 FORTE ORAL) Take 1 tablet by mouth once daily. pantoprazole DR (PROTONIX) 40 mg tablet Take 40 mg by mouth once daily. doxycycline hyclate (VIBRAMYCIN) 100 mg capsule Take 100 mg by mouth twice daily. budesonide, enteric coated (ENTOCORT EC) 3 mg 24 hr capsule Take 6 mg by mouth three times daily. naproxen (NAPROSYN) 250 mg tablet Take 250 mg by mouth twice daily with meals. acetaminophen/dp-hydram hcl(TYLENOL PM 25 MG-500 MG/15 ML ORAL SOLN) Take as needed ? No current facility-administered medications for this visit. ? ALLERGIES: Seasonal Allergies ? PERSONAL HISTORY: SOCIAL HISTORY Social History Marital status: Spouse name: Years of education: Number of children: ? Social History Main Topics Smoking status: Former Smoker Packs/day: 0.00 Years: 0.00 Comment: quit 18 years ago 1990 or 1991 Alcohol use: No Drug use: No Sexual activity: Not Currently ? ? FAMILY HISTORY: FAMILY HISTORY FAMILY HISTORY Problem Relation Age of Onset - Allergies Father ? - Allergies Sister ? - Cancer Mother ? - Colon Cancer Father ? - Breast Cancer Mother ? - Breast Cancer Maternal Grandmother ? - Diabetes Maternal Grandfather ? ? ? REVIEW OF SYMPTOMS: The review of systems data was entered by the nurse and reviewed by me ? There are no exam notes on file for this visit. ? PHYSICAL EXAMINATION: ? General: The patient is 67 year old female, well nourished, well hydrated in no acute distress. The patient is oriented to time, place, and person. ? VITALS: Blood pressure 144/66, pulse 76, weight 102 kg (224 lb 12.8 oz). Body mass index is 42.48 kg/m?. ? HEENT: Normal cephalic, ataumatic, pupils are equally round, sclera are anicteric, mucous membranes are moist, oropharynx is clear. Neck has no masses, asymmetry or lymphadenopathy. Thyroid is unremarkable. ? Respiratory: Clear to auscultation and percussion. Normal respiratory excursion and pattern. ? Cardiac: Examination is regular rate and rhythm. ? Abdominal exam: Soft, nontender, with no palpable masses. No hepatosplenomegaly. No palpable hernias. ? Rectal exam: exam deferred ? Extremities: no clubbing, cyanosis or edema. No adenopathy. ? Other: ? LABORATORY VALUES: As Noted ? RADIOLOGIC STUDIES: As Noted ? Assessment IMPRESSION:epigastric pain ? PLAN: I plan to perform upper endoscopy. We discussed the risks and benefits of the planned endoscopy. I have informed the patient that complications can occur including failure to complete the endoscopy and perforation. The patient had the opportunity to ask questions concerning the planned endoscopy. My staff has also explained the procedure to the patient in understandable terms and has given the patient printed material concerning the procedure. The patient freely consents to surgery. ? Diagnoses: (K21.9) Gastroesophageal reflux disease, esophagitis presence not specified (primary encounter diagnosis) ? A letter was sent to Dr. Italo Eng DO indicating the above finding for this patient. Return to Clinic: The patient is instructed to follow-up with me after the testing has been completed. ? Dandre Segura MD PT ED Observed: 09/12/2017 Status: COMPLETED Source: [place] 9:30 AM [facility] REPOSITORY O ID: [id number] Author: Lissy DietzRn) JUWAN Randolph Service: (none) Author Type: Registered Nurse Type: Patient Education Filed: 09/12/2017 10:06 AM Note Text: Discharge Instructions were reviewed pre-operatively with the patient. All questions and concerns were addressed. Lissy Randolph RN PRE OP LEARNING ASSESSMENT PROCEDURE/SURGERY: GI PROCEDURES: Colonoscopy and EGD READINESS TO LEARN COGNITIVE ABILITY: Alert and oriented MOTIVATION TO LEARN: Interested FAMILY SUPPORT: Unable to assess - Family not present PATIENT LEARNS BEST BY: Multiple Methods FACTORS AFFECTING LEARNING: None PHYSICAL LIMITATIONS AFFECTING LEARNING: None Electronically Signed By: Lissy Randolph RN In Department: AMBULATORY SURGERY SURGICAL PATHOLOGY Observed: 09/12/2017 Status: F Source: [place] 12:00 AM [facility] REPOSITORY Specimen originated from [facility] Specimen #: [id number] Submitting Physician: DANDRE SEGURA ([id number]) FINAL DIAGNOSIS Stomach, antrum, biopsy - Gastric antral type mucosa with reactive gastropathy and intestinal metaplasia; negative for dysplasia; see comment. SS/rw 09/14/2017 COMMENT No microorganisms morphologically compatible with H. pylori are identified on routine H&E stained sections. Ghada Marin M.D. (Electronic Signature) SPECIMEN SUBMITTED A: ANTRUM, BIOPSY H/H CLINICAL DATA R10.13 GROSS DESCRIPTION A. Received in formalin is one piece of mariee, soft tissue measuring 0.4 x 0.3 x 0.2 cm. Totally submitted in one cassette. Gross examination performed at [facility], [address] [place] [address] 09/13/2017 2:30:28 AM Date of Report: 09/14/2017 Date of Procedure: 09/12/2017 Date of Receipt: 09/12/2017 Submitted by: DANDRE SEGURA ([id number]) Location: [facility] Diagnostic interpretation performed at [place] [address]. PROGRESS Observed: 09/02/2017 Status: COMPLETED Source: [place] 9:52 AM [facility] REPOSITORY HNO ID: [id number] Author: Dandre Segura Service: (none) Author Type: Physician Type: Progress Notes Filed: 09/02/2017 9:55 AM Note Text: HISTORY AND PHYSICAL Jacquie Aldana 1950 REFERRING PHYSICIAN: Self CHIEF COMPLAINT: Established Patient (Stomach pain) HPI: The patient is a 67 year old female referred for endoscopy. Jacquie notes no current colon complaints, but I had seen her for diverticulitis in the past when she required a laparoscopic washout. She has had no colon challenges since that time. More recently, Jacquie notes epigastric pain for approximately one month. She notes the pain is significantly improved after she eats food, specifically yogurt . Jacquie has undergone prior endoscopy, She had colonoscopy performed by Dr. Yanez 1-2 years previously which demonstrate diverticulosis. She has not had upper endoscopy. The patient is being seen by me today at the request of Dr. Italo Eng DO for my opinion and advice regarding epigastric pain. PAST MEDICAL HISTORY Diagnosis Date - Breast cyst - Hemorrhoids - Hypercholesteremia - Hypercoagulopathy (HCC) - Hypertension - Reflux PAST SURGICAL HISTORY Procedure Laterality Date - CYST ASPIRATION Bilateral Breast - DANDC DIAG AND/OR THERAP, NOT OB - L'SCOPE DX W/WO BRUSHINGS/WASHINGS 01/17/2017 Laparoscopy, peritoneal wash out and culture [facility] - TOTAL HIP REPLACEMENT Right 09/2015 revision 10/16 Current Outpatient Prescriptions: losartan (COZAAR) 100 mg tablet Take 100 mg by mouth once daily. aspirin 81 mg chewable tablet Take 81 mg by mouth once daily. hydroCHLOROthiazide (HYDRODIURIL, ESIDRIX) 25 mg tablet Take 25 mg by mouth once daily. metoprolol tartrate, short acting, (LOPRESSOR) 50 mg tablet Take 50 mg by mouth twice daily. meloxicam (MOBIC) 15 mg tablet Take 15 mg by mouth once daily. rivaroxaban (XARELTO) 20 mg tablet Take 20 mg by mouth daily with dinner. LORATADINE (CLARITIN ORAL) Take by mouth. oxyCODONE IR (ROXICODONE) 5 mg immediate release tablet Take 25 mg by mouth twice daily. ALBUTEROL INHALATION Inhale as instructed as needed. IRON PS CMPLX/VIT B12/FA (FERREX 150 FORTE ORAL) Take 1 tablet by mouth once daily. pantoprazole DR (PROTONIX) 40 mg tablet Take 40 mg by mouth once daily. doxycycline hyclate (VIBRAMYCIN) 100 mg capsule Take 100 mg by mouth twice daily. budesonide, enteric coated (ENTOCORT EC) 3 mg 24 hr capsule Take 6 mg by mouth three times daily. naproxen (NAPROSYN) 250 mg tablet Take 250 mg by mouth twice daily with meals. acetaminophen/dp-hydram hcl(TYLENOL PM 25 MG-500 MG/15 ML ORAL SOLN) Take as needed No current facility-administered medications for this visit. ALLERGIES: Seasonal Allergies PERSONAL HISTORY: Social History Marital status: Spouse name: Years of education: Number of children: Social History Main Topics Smoking status: Former Smoker Packs/day: 0.00 Years: 0.00 Comment: quit 18 years ago 1990 or 1991 Alcohol use: No Drug use: No Sexual activity: Not Currently FAMILY HISTORY: FAMILY HISTORY Problem Relation Age of Onset - Allergies Father - Allergies Sister - Cancer Mother - Colon Cancer Father - Breast Cancer Mother - Breast Cancer Maternal Grandmother - Diabetes Maternal Grandfather REVIEW OF SYMPTOMS: The review of systems data was entered by the nurse and reviewed by me There are no exam notes on file for this visit. PHYSICAL EXAMINATION: General: The patient is 67 year old female, well nourished, well hydrated in no acute distress. The patient is oriented to time, place, and person. VITALS: Blood pressure 144/66, pulse 76, weight 102 kg (224 lb 12.8 oz). Body mass index is 42.48 kg/m?. HEENT: Normal cephalic, ataumatic, pupils are equally round, sclera are anicteric, mucous membranes are moist, oropharynx is clear. Neck has no masses, asymmetry or lymphadenopathy. Thyroid is unremarkable. Respiratory: Clear to auscultation and percussion. Normal respiratory excursion and pattern. Cardiac: Examination is regular rate and rhythm. Abdominal exam: Soft, nontender, with no palpable masses. No hepatosplenomegaly. No palpable hernias. Rectal exam: exam deferred Extremities: no clubbing, cyanosis or edema. No adenopathy. Other: LABORATORY VALUES: As Noted RADIOLOGIC STUDIES: As Noted Assessment IMPRESSION:epigastric pain PLAN: I plan to perform upper endoscopy. We discussed the risks and benefits of the planned endoscopy. I have informed the patient that complications can occur including failure to complete the endoscopy and perforation. The patient had the opportunity to ask questions concerning the planned endoscopy. My staff has also explained the procedure to the patient in understandable terms and has given the patient printed material concerning the procedure. The patient freely consents to surgery. Diagnoses: (K21.9) Gastroesophageal reflux disease, esophagitis presence not specified (primary encounter diagnosis) A letter was sent to Dr. Italo Eng DO indicating the above finding for this patient. Return to Clinic: The patient is instructed to follow-up with me after the testing has been completed. Dandre Segura MD CNOV Observed: 09/01/2017 Status: COMPLETED Source: [place] 1:20 PM [facility] REPOSITORY Office Visit (GENSWS) KATYAJACQUIE GREEN I ([id number]) 1950 F Date Time Provider Department 09/01/17 1:20 PM DANDRE SEGURA During your visit today, we recorded the following information about you: Pulse Blood pressure Weight 76/minute 144/66 102 kg Dandre Segura MD 09/02/2017 9:55 AM Signed HISTORY AND PHYSICAL Jacquie Gaffney Katya 1950 REFERRING PHYSICIAN: Self CHIEF COMPLAINT: Established Patient (Stomach pain) HPI: The patient is a 67 year old female referred for endoscopy. Jacquie notes no current colon complaints, but I had seen her for diverticulitis in the past when she required a laparoscopic washout. She has had no colon challenges since that time. More recently, Jacquie notes epigastric pain for approximately one month. She notes the pain is significantly improved after she eats food, specifically yogurt . Jacquie has undergone prior endoscopy, She had colonoscopy performed by Dr. Yanez 1-1/2 years previously which demonstrate diverticulosis. She has not had upper endoscopy. The patient is being seen by me today at the request of Dr. Italo Eng DO for my opinion and advice regarding epigastric pain. PAST MEDICAL HISTORY Diagnosis Date - Breast cyst - Hemorrhoids - Hypercholesteremia - Hypercoagulopathy (HCC) - Hypertension - Reflux PAST SURGICAL HISTORY Procedure Laterality Date - CYST ASPIRATION Bilateral Breast - DANDC DIAG AND/OR THERAP, NOT OB - L'SCOPE DX W/WO BRUSHINGS/WASHINGS 01/17/2017 Laparoscopy, peritoneal wash out and culture [facility] - TOTAL HIP REPLACEMENT Right 09/2015 revision 10/16 Current Outpatient Prescriptions: losartan (COZAAR) 100 mg tablet Take 100 mg by mouth once daily. aspirin 81 mg chewable tablet Take 81 mg by mouth once daily. hydroCHLOROthiazide (HYDRODIURIL, ESIDRIX) 25 mg tablet Take 25 mg by mouth once daily. metoprolol tartrate, short acting, (LOPRESSOR) 50 mg tablet Take 50 mg by mouth twice daily. meloxicam (MOBIC) 15 mg tablet Take 15 mg by mouth once daily. rivaroxaban (XARELTO) 20 mg tablet Take 20 mg by mouth daily with dinner. LORATADINE (CLARITIN ORAL) Take by mouth. oxyCODONE IR (ROXICODONE) 5 mg immediate release tablet Take 25 mg by mouth twice daily. ALBUTEROL INHALATION Inhale as instructed as needed. IRON PS CMPLX/VIT B12/FA (FERREX 150 FORTE ORAL) Take 1 tablet by mouth once daily. pantoprazole DR (PROTONIX) 40 mg tablet Take 40 mg by mouth once daily. doxycycline hyclate (VIBRAMYCIN) 100 mg capsule Take 100 mg by mouth twice daily. budesonide, enteric coated (ENTOCORT EC) 3 mg 24 hr capsule Take 6 mg by mouth three times daily. naproxen (NAPROSYN) 250 mg tablet Take 250 mg by mouth twice daily with meals. acetaminophen/dp-hydram hcl(TYLENOL PM 25 MG-500 MG/15 ML ORAL SOLN) Take as needed No current facility-administered medications for this visit. ALLERGIES: Seasonal Allergies PERSONAL HISTORY: Social History Marital status: Spouse name: Years of education: Number of children: Social History Main Topics Smoking status: Former Smoker Packs/day: 0.00 Years: 0.00 Comment: quit 18 years ago 1990 or 1991 Alcohol use: No Drug use: No Sexual activity: Not Currently FAMILY HISTORY: FAMILY HISTORY Problem Relation Age of Onset - Allergies Father - Allergies Sister - Cancer Mother - Colon Cancer Father - Breast Cancer Mother - Breast Cancer Maternal Grandmother - Diabetes Maternal Grandfather REVIEW OF SYMPTOMS: The review of systems data was entered by the nurse and reviewed by me There are no exam notes on file for this visit. PHYSICAL EXAMINATION: General: The patient is 67 year old female, well nourished, well hydrated in no acute distress. The patient is oriented to time, place, and person. VITALS: Blood pressure 144/66, pulse 76, weight 102 kg (224 lb 12.8 oz). Body mass index is 42.48 kg/m?. HEENT: Normal cephalic, ataumatic, pupils are equally round, sclera are anicteric, mucous membranes are moist, oropharynx is clear. Neck has no masses, asymmetry or lymphadenopathy. Thyroid is unremarkable. Respiratory: Clear to auscultation and percussion. Normal respiratory excursion and pattern. Cardiac: Examination is regular rate and rhythm. Abdominal exam: Soft, nontender, with no palpable masses. No hepatosplenomegaly. No palpable hernias. Rectal exam: exam deferred Extremities: no clubbing, cyanosis or edema. No adenopathy. Other: LABORATORY VALUES: As Noted RADIOLOGIC STUDIES: As Noted Assessment IMPRESSION:epigastric pain PLAN: I plan to perform upper endoscopy. We discussed the risks and benefits of the planned endoscopy. I have informed the patient that complications can occur including failure to complete the endoscopy and perforation. The patient had the opportunity to ask questions concerning the planned endoscopy. My staff has also explained the procedure to the patient in understandable terms and has given the patient printed material concerning the procedure. The patient freely consents to surgery. Diagnoses: (K21.9) Gastroesophageal reflux disease, esophagitis presence not specified (primary encounter diagnosis) A letter was sent to Dr. Italo Eng DO indicating the above finding for this patient. Return to Clinic: The patient is instructed to follow-up with me after the testing has been completed. Dandre Segura MD Referring Provider: SELF [[id number]] Allergies As of Date: 09/01/2017 Noted Allergy Reaction SEASONAL ALLERGIES 07/15/2013 14 - Other: See Comments Comments: Nasal congestion. Gets allergy injections. Date Reviewed: 09/01/2017 Reviewed by: Dandre Segura - Fully Assessed Reason for Visit: Established Patient [175] Cmt: Stomach pain Primary Visit Diagnosis:Gastroesophageal reflux disease, esophagitis presence not specified [K21.9] Prescriptions as of 09/01/2017 Sig: LOSARTAN 100 MG TABLET Take 100 mg by mouth once liliana* ASPIRIN 81 MG CHEWABLE TABLET Take 81 mg by mouth once moses* HYDROCHLOROTHIAZIDE 25 MG TAB* Take 25 mg by mouth once moses* METOPROLOL TARTRATE 50 MG TAB* Take 50 mg by mouth twice liliana* MELOXICAM 15 MG TABLET Take 15 mg by mouth once moses* RIVAROXABAN 20 MG TABLET Take 20 mg by mouth daily wit* CLARITIN ORAL Take by mouth. OXYCODONE 5 MG TABLET Take 25 mg by mouth twice liliana* ALBUTEROL INHALATION Inhale as instructed as need* FERREX 150 FORTE ORAL Take 1 tablet by mouth once d* PANTOPRAZOLE 40 MG TABLET,DEL* Take 40 mg by mouth once moses* DOXYCYCLINE HYCLATE 100 MG CA* Take 100 mg by mouth twice da* BUDESONIDE DR - ER 3 MG CAPSU* Take 6 mg by mouth three time* NAPROXEN 250 MG TABLET Take 250 mg by mouth twice da* * TYLENOL PM 25 MG-500 MG/15 ML* Take as needed Medication notes this encounter OXYCODONE 5 MG TABLET >> Del Deluca LPN 09/01/2017 2:03 PM >> DEL DELUCA LPN MonSep 01, 2017 2:03 PM please d/c old rx Problem List As Of Date: 09/01/2017 (None) Letter Text Encounter Status:Closed by DANDRE SEGURA MD on 09/02/17 HOSP Observed: 09/01/2017 Status: COMPLETED Source: [place] 12:00 AM [facility] REPOSITORY Patient:Jacquie Aldana I MRN: <[id number]> Height:5' 1(1.549 m) Weight:224 lb 13.9 oz (102 kg) Outpatient Medications as of 09/12/17: losartan (COZAAR) 100 mg tablet aspirin 81 mg chewable tablet ALBUTEROL INHALATION hydroCHLOROthiazide (HYDRODIURIL, ESIDRIX) 25 mg tablet metoprolol tartrate, short acting, (LOPRESSOR) 50 mg tablet meloxicam (MOBIC) 15 mg tablet rivaroxaban (XARELTO) 20 mg tablet LORATADINE (CLARITIN ORAL) acetaminophen/dp-hydram hcl(TYLENOL PM 25 MG-500 MG/15 ML ORAL SOLN) Admission/Clinic Administered Medications as of 09/12/17: lactated ringers infusion Problem List: No problem list on file for this patient. Allergies: Seasonal Allergies Date Verified: 09/12/17 Lab Values No results within the last 30 days for the following basenames: K,HCT Progress Notes ([facility]): Harrison Sanford Surg Coord 09/01/2017 2:35 PM Signed 09-12-2017 [facility] Harrison Sanford Surg Coord Progress Notes ([facility]): Dandre Segura MD 09/02/2017 9:55 AM Signed HISTORY AND PHYSICAL Jacquie Gaffney Katya 1950 REFERRING PHYSICIAN: Self CHIEF COMPLAINT: Established Patient (Stomach pain) HPI: The patient is a 67 year old female referred for endoscopy. Jacquie notes no current colon complaints, but I had seen her for diverticulitis in the past when she required a laparoscopic washout. She has had no colon challenges since that time. More recently, Jacquie notes epigastric pain for approximately one month. She notes the pain is significantly improved after she eats food, specifically yogurt . Jacquie has undergone prior endoscopy, She had colonoscopy performed by Dr. Yanez 1-2 years previously which demonstrate diverticulosis. She has not had upper endoscopy. The patient is being seen by me today at the request of Dr. Italo Eng DO for my opinion and advice regarding epigastric pain. PAST MEDICAL HISTORY Diagnosis Date - Breast cyst - Hemorrhoids - Hypercholesteremia - Hypercoagulopathy (HCC) - Hypertension - Reflux PAST SURGICAL HISTORY Procedure Laterality Date - CYST ASPIRATION Bilateral Breast - DANDC DIAG AND/OR THERAP, NOT OB - L'SCOPE DX W/WO BRUSHINGS/WASHINGS 01/17/2017 Laparoscopy, peritoneal wash out and culture [facility] - TOTAL HIP REPLACEMENT Right 09/2015 revision 10/16 Current Outpatient Prescriptions: losartan (COZAAR) 100 mg tablet Take 100 mg by mouth once daily. aspirin 81 mg chewable tablet Take 81 mg by mouth once daily. hydroCHLOROthiazide (HYDRODIURIL, ESIDRIX) 25 mg tablet Take 25 mg by mouth once daily. metoprolol tartrate, short acting, (LOPRESSOR) 50 mg tablet Take 50 mg by mouth twice daily. meloxicam (MOBIC) 15 mg tablet Take 15 mg by mouth once daily. rivaroxaban (XARELTO) 20 mg tablet Take 20 mg by mouth daily with dinner. LORATADINE (CLARITIN ORAL) Take by mouth. oxyCODONE IR (ROXICODONE) 5 mg immediate release tablet Take 25 mg by mouth twice daily. ALBUTEROL INHALATION Inhale as instructed as needed. IRON PS CMPLX/VIT B12/FA (FERREX 150 FORTE ORAL) Take 1 tablet by mouth once daily. pantoprazole DR (PROTONIX) 40 mg tablet Take 40 mg by mouth once daily. doxycycline hyclate (VIBRAMYCIN) 100 mg capsule Take 100 mg by mouth twice daily. budesonide, enteric coated (ENTOCORT EC) 3 mg 24 hr capsule Take 6 mg by mouth three times daily. naproxen (NAPROSYN) 250 mg tablet Take 250 mg by mouth twice daily with meals. acetaminophen/dp-hydram hcl(TYLENOL PM 25 MG-500 MG/15 ML ORAL SOLN) Take as needed No current facility-administered medications for this visit. ALLERGIES: Seasonal Allergies PERSONAL HISTORY: Social History Marital status: Spouse name: Years of education: Number of children: Social History Main Topics Smoking status: Former Smoker Packs/day: 0.00 Years: 0.00 Comment: quit 18 years ago 1990 or 1991 Alcohol use: No Drug use: No Sexual activity: Not Currently FAMILY HISTORY: FAMILY HISTORY Problem Relation Age of Onset - Allergies Father - Allergies Sister - Cancer Mother - Colon Cancer Father - Breast Cancer Mother - Breast Cancer Maternal Grandmother - Diabetes Maternal Grandfather REVIEW OF SYMPTOMS: The review of systems data was entered by the nurse and reviewed by me There are no exam notes on file for this visit. PHYSICAL EXAMINATION: General: The patient is 67 year old female, well nourished, well hydrated in no acute distress. The patient is oriented to time, place, and person. VITALS: Blood pressure 144/66, pulse 76, weight 102 kg (224 lb 12.8 oz). Body mass index is 42.48 kg/m?. HEENT: Normal cephalic, ataumatic, pupils are equally round, sclera are anicteric, mucous membranes are moist, oropharynx is clear. Neck has no masses, asymmetry or lymphadenopathy. Thyroid is unremarkable. Respiratory: Clear to auscultation and percussion. Normal respiratory excursion and pattern. Cardiac: Examination is regular rate and rhythm. Abdominal exam: Soft, nontender, with no palpable masses. No hepatosplenomegaly. No palpable hernias. Rectal exam: exam deferred Extremities: no clubbing, cyanosis or edema. No adenopathy. Other: LABORATORY VALUES: As Noted RADIOLOGIC STUDIES: As Noted Assessment IMPRESSION:epigastric pain PLAN: I plan to perform upper endoscopy. We discussed the risks and benefits of the planned endoscopy. I have informed the patient that complications can occur including failure to complete the endoscopy and perforation. The patient had the opportunity to ask questions concerning the planned endoscopy. My staff has also explained the procedure to the patient in understandable terms and has given the patient printed material concerning the procedure. The patient freely consents to surgery. Diagnoses: (K21.9) Gastroesophageal reflux disease, esophagitis presence not specified (primary encounter diagnosis) A letter was sent to Dr. Italo Eng DO indicating the above finding for this patient. Return to Clinic: The patient is instructed to follow-up with me after the testing has been completed. Dandre Segura MD ONCOLOGY VISIT REPORT Observed: 07/13/2017 Status: F Source: [place] 1:27 PM [facility] REPOSITORY [facility] [address] [place] [address] [place] [address] OFFICE VISIT Date of Service: 07/13/17 1256 MR#: [id number] Acct: [id number] Name: JACQUIE ALDANA Yeimy Rep #: [id number] : 1950 From: Maggy LAZO Age/Sex: 67/F Location: OMD Status: Signed Subjective - Date of Service Date of Service:: 07/13/17 - Chief Complaint f/u for thrombophilia. 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 In January 2016, she was found to have Heterozygous Factor V Leiden mutation as well as Heterozygous Prothrombin gene mutation. She developed acute unprovoked DVT Left lower extremity on 03/14/2016 and was placed on Xarelto for life. Her D-dimer was high and has been decreasing slowly. - Interval History The patient is presenting to clinic for routine 6 month follow up. Reports good tolerance and good adherence to Xarelto, specifically denies CP, palpitations, SOB, swelling of her extremities and any episodes of bleeding, although admits she bruises easily. Further denies any concerns r/t today's visit. - Past Medical/Social History Past Medical History Past Medical History: Blood transfusion,Clotting disorder,Heart disease,Hypertension Other Past Medical History: FACTOR V LEIDEN MUTATION Past Surgical History Surgical: Hip replacement,Tubal ligation Other Surgical History: COLONOSCOPY HIP REPLACEMENT X2 INFECTION (POST OP) Family History Paternal Past Medical History: Hypertension Paternal History of Cancer Colon cancer Maternal Past Medical History: Hypertension,Stroke Maternal History of Cancer: Breast cancer,Other Social History Smoking Status Former smoker Review of Systems Constitutional:: Denies: Fever, Sweats, Weight loss, Appetite change, Chills Cardiovascular:: Denies: Chest pain, Palpitations, Dyspnea on exertion, Orthopnea, PND, Shortness of breath Respiratory: Denies: Cough, Hemoptysis, Shortness of Breath, Wheezing Gastrointestinal:: Denies: Abdominal pain, Nausea, Vomiting, Diarrhea, Constipation, Hematochezia Genitourinary: Denies: Dysuria, Hematuria, 15, Flank pain Musculoskeletal:: Denies: Back pain, Myalgia, Arthralgia Skin: Denies: Rash, Skin Changes, Wounds Neurological:: Denies: Headache, Dizziness, Visual changes, Tinnitus, Hearing loss Psychiatric: Denies: Anxiety, Depression, Homicidal Ideations, Suicidal Ideations Vital Signs Height 5 ft 1 in Weight: 215 lb Weight in Pounds 215.0 lbs Pulse Ox 95 - Physical Exam General: Alert, Oriented x3, No apparent distress HEENT: Atraumatic, Normocephalic Oropharynx:: Negative for: Dry mucosa, Ulcerated lesions Neck:: Supple, Trachea midline. Negative for: JVD, bilateral Cardiac:: Regular rate, Regular rhythm, Normal S1, Normal S2. Negative for: Murmur Lungs: Clear to auscultation, Excusion symmetrical. Negative for: Rhonchi, Wheezes Abdomen:: Bowel sounds x 4, Soft, Non-tender, Non-distended. Negative for: Hepatosplenomegaly Extremities:: Negative for: Cyanosis, Edema Skin:: Negative for: Lesions, Rash, Petechiae, Ecchymosis Psychiatric:: Appropriate affect, Euthymic Lymphatics:: Negative for: Cervical lymphadenopathy, Supraclavicular lymphadenopathy, Axillary lymphadenopathy Assessment and Plan 1. Thromboembolism, Heterozygous Factor V Leiden and Prothrombin gene mutation-reports good tolerance as well as good adherence to Xarelto. Refill provided. CBC reviewed within normal limits CMP is pending patient will be called if there are aberrancies. Encouraged to report any overt episodes of bleeding/abnormal bruising, otherwise patient will return to clinic in approximately 6 months with CBC and CMP prior. This visit incident to the treatment plan previously established by Dr. Jennifer Forte, MSN, [employer], AOCNP Medications: Prescriptions This Visit Medication Instructions Recorded Rivaroxaban [Xarelto] 20 mg PO DAILY 30 Days #30 tab 05/29/17 Primary Care Provider: Italo Eng Referring Provider: Italo Eng - Problem List (1) Factor V Leiden, prothrombin gene mutation Status: Chronic (2) Chronic anticoagulation Status: Acute 07/13/17 1327 <Electronically signed by Maggy LAZO> Date Maggy LAZO Cosigner Signature: Date (if applicable) CC: CBC W/DIFF, AUTOMATED Collected: 07/13/2017 Status: F Source: [place] 12:36 PM [facility] REPOSITORY Order Comment: Reason for Laboratory Test OV TYPE CODE TESTS RESULT OUT OF RANGE REFERENCE UNITS LAB L100.1000 4.4-11.0 K/mm3 Normal WBC 8.6 LAB L100.1200 4.2-5.4 M/mm3 Normal RBC 4.58 LAB L100.1300 12.0-15.0 g/dl Normal HGB 13.5 LAB L100.1400 37-47 % Normal HCT 41.5 LAB L100.1500 81-99 fL Normal MCV 90.6 LAB L100.1600 27.0-32.0 pg Normal MCH 29.5 LAB L100.1700 32-36 g/gl Normal MCHC 32.5 LAB L100.1810 11.6-14.6 % Normal RDW CV 13.4 LAB L100.1820 35.1-43.9 fl Normal RDW SD 43.7 LAB L100.1900 150-450 K/mm3 Normal PLT 263 LAB L100.2000 6.2-12.0 fl Normal MPV 10.4 LAB L100.2100 47-70 % Normal NEUT% 61.3 LAB L100.2200 19-41 % Normal LY% 27.9 LAB L100.2300 0-10 % Normal MONO% 5.8 LAB L100.2400 0-5 % Normal EO% 4.3 LAB L100.2500 0-1 % Normal BASO% 0.5 LAB L100.2550 0.0-0.9 % Normal IM GRAN % 0.200 Result Comment: IG% - Immature Granulocytes (promyelocytes, myelocytes and metamyelocytes) > 1% indicates that a LEFT SHIFT is Present. LAB L100.2620 2.0-7.7 X10 3/uL Normal Absolute Neut 5.3 LAB L100.2720 0.83-4.51 X10 3/ul Normal Absolute Lymph 2.40 Performed By: #### L100.0100, L500.4050 #### [facility] [address] [place], [address] COMPREHENSIVE METABOLIC Collected: 07/13/2017 Status: F Source: [facility] 12:36 PM [facility] REPOSITORY Order Comment: Reason for Laboratory Test OV TYPE CODE TESTS RESULT OUT OF RANGE REFERENCE UNITS LAB L501.0100 74-106 mg/dL High GLU 109 Result Comment: Fasting Glucose result from 100 to 125 mg/dL suggests IMPAIRED HOMEOSTASIS per A.D.A. criteria. Please note revised GLUCOSE reference range effective 2017. LAB L501.1000 7-18 mg/dL High BUN 23 LAB L501.1100 0.55-1.02 mg/dL High CREAT,SERUM 1.03 Result Comment: The validity of the calculated GFR AND GFRAA in patients over 70 years has not been determined. Clinical correlation is essential. LAB L501.1110 >60 mL/min Low EST GFR 57 Result Comment: Non- GFR Calc LAB L501.1115 >60 mL/min Normal EST GFR - AA 69 Result Comment: GFR Calc LAB L501.1255 ml/min Normal Estimated CRCL 40.54 LAB L501.1300 10-20 RATIO High BUN/CRE 22.3 LAB L501.1500 6.4-8. g/dL Normal 2 T PROT 7.8 LAB L501.1800 3.2-5. g/dL Normal 0 ALB 3.8 LAB L501.1950 2.2-4. g/dL Normal 2 GLOB 4.0 LAB L501.2000 0.9-2. RATIO Normal 4 A/G 1.0 LAB L501.2200 8.5-10 mg/dL Normal .1 CA 9.1 LAB L501.4100 15-37 U/L Low AST 14 LAB L501.4305 45-117 U/L Normal ALK P 111 LAB L501.4405 13-56 U/L Normal ALT 28 Result Comment: Please note revised ALT reference range effective 2017. LAB L501.4600 0.20-1.00 mg/dL Normal T BILI 0.60 LAB L501.5300 136-145 mmol/L Normal NA 140 LAB L501.5600 3.5-5.1 mmol/L Normal K 4.2 LAB L501.5900 98-107 mmol/L Normal CL 103 LAB L501.6100 21.0-32.0 mmol/L Normal CO2 29.0 LAB L501.6200 5-15 Normal GAP 8 Performed By: #### L100.0100, L500.4050 #### [facility] [address] [place], [address] BREAST LIMITED Observed: 06/14/2017 Status: F Source: [place] [facility] 12:25 PM [facility] REPOSITORY [facility] Imaging Services [address] [place] [address] Breast Limited Unilateral MR#: [id number] Acct: [id number] Name: JACQUIE ALDANA I Rep #: [id number] : 1950 F 67 From: Bryn Funk MD PCP: Italo Eng DO Status: REG CLI Study: Breast Limited Unilateral Date of Exam: 06/14/17 Exam# [id number] Ordering Dr: Italo Eng DO STUDY: ULTRASOUND BREAST - LEFT REASON FOR EXAM: Female, 67 years old. Abnormal screening mammogram. TECHNIQUE: Axial and longitudinal images of the LEFT breast were performed with a high resolution ultrasound transducer. COMPARISON: Comparison is made with prior mammogram dated June 12, 2017. FINDINGS: LEFT Breast: There is a 9 mm x 8 mm x 3 mm cyst at the 8:00 position of the breast at 5 cm from nipple. US/Breast Limited Unilateral IMPRESSION: The mammographic abnormality corresponds to a 9 mm x 8 mm x 3 mm cyst. ASSESSMENT CATEGORY: BIRADS Category 2: Benign. A letter regarding these results will be sent to the patient by the facility within 30 days. Electronically Signed: Bryn Funk MD at 8:57 EDT Tel [phone], Service support , CC: Italo Eng DO Knitter Mechanic: Signed SCREENING MAMM (CAD), Observed: 06/12/2017 Status: F Source: [place] 9:56 AM [facility] REPOSITORY [facility] Imaging Services [address] [place] [id number] SCREENING MAMM (CAD), BILAT MR#: [id number] Acct: [id number] Name: JACQUIE ALDANA I Rep #: [id number] : 1950 F 67 From: Bryn Funk MD PCP: Italo Eng DO Status: REG CLI Study: SCREENING MAMM (CAD), BILAT Date of Exam: 06/12/17 Exam# [id number] Ordering Dr: Italo Eng DO MAMMOGRAPHY - BILATERAL SCREENING REASON FOR EXAM: Female, 67 years old. Routine annual screening examination. PERTINENT HISTORY: Mother with breast cancer. Grandmother with breast cancer. TECHNIQUE: Digital bilateral breast linn (3D mammographic acquisition) in the CC and MLO projections. 2-D mediolateral oblique (MLO) and craniocaudad (CC) views of both breasts were obtained. CAD: Full Field Digital Mammography with Computer Added Detection was performed. COMPARISON: Comparison is made with prior study dated June 09, 2016 and June 27, 2011. FINDINGS: Breast Composition: There are scattered areas of fibroglandular density. There is a 1 cm x 1 cm well-defined nodule in the deep mid medial portion of the left breast. Correlation with ultrasound is recommended. The previously seen 5 mm nodule in the right breast is unchanged. No clustered calcification is seen. No other significant abnormalities are identified. HPBI/SCREENING MAMM (CAD), BILAT IMPRESSION: 1 cm well-defined nodule in the deep medial portion of the left breast. Correlation with ultrasound is recommended. ASSESSMENT CATEGORY: BIRADS Category 0: Incomplete. Need additional imaging evaluation. A letter regarding these results will be sent to the patient by the facility within 30 days. Approximately 10% of breast cancers are not detected by mammography. A normal mammogram should not delay biopsy of a clinically suspicious abnormality. [id number] Electronically Signed: Bryn Funk MD at 12:41 EDT Tel [phone], Service support , CC: Italo Eng DO Knitter Mechanic: Signed ALLERGIES ALLERGIES DATE TYPE / NAME / CODE REACTION SEVERITY SOURCE CODE 03/21/2018 Drug epinephrine/F0060 Other Unknown Swathi Allergy/41 20452(RXNORM) [facility] [id number]([facility]) Repository 04/12/2016 DRUG EPINEPHRINE CONTRAINDICA [facility] INGREDI/41 [place] [id number](SN Repository OMED CT) 07/15/2013 Environ/42 SEASONAL OTHER: SEE C [facility] [id number](SN ALLERGIES [place] OMED [place]) Repository ENCOUNTERS ENCOUNTERS ADMIT/DISCHARGE ACCOUNT ADMITTING ENCOUNTER LOCATION SOURCE NUMBER CLASS 03/21/2018/03/21/20 [id number] Ambulatory BMSBuilding:Chaz Echevarria [address] MS.[facility] Repository 03/21/2018 [id number] [facility] ing:LAB Repository 03/20/2018 [id number] Ambulatory BMSBuilding:Chaz Echevarria MS.[facility] Repository 01/11/2018 [id number] Ambulatory BMSBuilding:Chaz Echevarria MS.CF.[facility] Repository 01/11/2018 [id number] [facility] ing:OMD Repository 10/31/2017/11/02/19 [id number] Ambulatory [address] Repository 10/24/2017/10/25/19 [id number] [facility], [address] Repository 09/19/2017/09/20/19 [id number] Ambulatory [address] Repository 09/12/2017/09/13/[id number] Repository 09/01/2017/09/07/19 [id number] Ambulatory [address] Repository 07/13/2017 [id number] Ambulatory BMSBuilding:Chaz Echevarria MS.[facility] Repository 06/14/2017 [id number] [facility] ing:[facility] Repository 06/12/2017 [id number] [facility] ing:BI Repository PAYERS PAYERS ENCOUNTER GUARANTOR PAYER SUBSCRIBER SOURCE 03/21/2018 ADILSON Monzon Primary Insurance:MMO JACQUIE Friedoster [id number] MEDICAREPolicy IDOB: [facility] Number: [id number] [id number] Repository [address]Hpx: (330) Date:4835-48-16Xv [phone] () [address] [place] [phone]: 03/21/2018 Secondary NOT GIVENUNK [place] Insurance:SELF PAY [facility] Number: Effective Repository Date:2018-03-21 03/21/2018 ADILSON Monzon Primary Insurance:MMO JACQUIE HURLEYLER Swathi [id number] MEDICAREPolicy IDOB: [facility] Number: [id number], [place] [id number] Repository [address]Nsd: (330) Date:2464-74-81Uk [phone] (HP) [address] [address]UH: 03/21/2018 Secondary NOT GIVENUNK Swathi Insurance:SELF PAY [facility] Number: Effective Repository Date:2018-03-21 03/20/2018 Adilson Monzon Primary Insurance:MMO JACQUIE HURLEYLER [place] [id number] MEDICAREPolicy IDOB: [facility] Number: [id number], [place] [id number] Repository [address]Ndv: (330) Date:1204-25-74Ft [phone] () [address] [place] [address]SQ: 03/20/2018 Secondary NOT GIVENUNK Swathi Insurance:SELF PAY [facility] Number: Effective Repository Date:2018-03-20 01/11/2018 Adilson Monzon Primary Insurance:YOLANDA JACQUIECALI CASTELLANOB: Swathi [id number] MEDICAREPolicy [id number] [facility] Number: [place], [place] [id number] Repository [address]Cte: (330) Date:6004-37-18Ah [phone] () [address] [place] [phone]: 01/11/2018 Secondary NOT GIVENUNK Swathi Insurance:SELF PAY [facility] Number: Effective Repository Date:2018-01-11 01/11/2018 Adilson Monzon Primary Insurance:MMO JACQUIECALI CASTELLANOB: Swathi [id number] MEDICAREPolicy [id number] Number: [place], [place] [id number] Repository [address]Hno: (330) Date:2212-96-01Na [phone] (HP) [address], [place] [address]NE: 01/11/2018 Secondary NOT GIVENUNK Swathi Insurance:SELF PAY [facility] Number: Effective Repository Date:2016-06-20 07/13/2017 Adilson A Primary Insurance:MMO JACQUIE SIGLERDOB: Swathi [id number] MEDICAREPolicy [id number] Number: [place], [place] [id number] Repository [address]Ari: Date:1434-20-70Fn [phone] [place] [address] -8 (HP) [phone]: 07/13/2017 Secondary NOT GIVENUNK [place] Insurance:SELF PAY [facility] Number: Effective Repository Date:2017-07-13 06/14/2017 Adilson A Primary Insurance:MMO JACQUIE SIGLERDOB: Swathi [id number] MEDICAREPolicy [id number] Number: [place], [place] [id number] Repository [address]Gfo: Date:1209-49-98HF [phone]~330 [address], [place] -8 (HP) [address]JD: 06/14/2017 Secondary NOT GIVENUNK [place] Insurance:SELF PAY [facility] Number: Effective Repository Date:2017-06-13 06/12/2017 Adilson A Primary Insurance:MMO JACQUIE SIGLERDOB: Swathi [id number] MEDICAREPolicy [id number] Hospital Center Number: [place], [place] [id number] Repository [address]Tbx: Date:9903-25-71TH [phone]~330 [address], [place] -8 (HP) [phone]: 06/12/2017 Secondary NOT GIVENUNK Swathi Insurance:SELF PAY [facility]: Effective Repository Date:2017-05-03
== END ==
PROVIDERS: Family Provider Family Medicine; PCP Family Medicine; Referring Provider Family Medicine; Visit Provider Family Medicine
DX: T81.49XA Infection following a procedure, other surgical site, initial encounter (principal); I10 Essential (primary) hypertension
CPT/HCPCS: 36415; 80048; 85025; 85652

== ENCOUNTER → 2019-02-05 09:38 | Outpatient (CLI) | payer MEDICARE, SELFPAY ==
[2019-01-29 13:04] VITALS: BMI 47.2
[2019-02-05 11:11] LABS: ALB/GLOB Ratio 1.1 RATIO (0.9-2.4); AST(SGOT) 15 U/L (15-37); Alanine Aminotransfer ALT/SGPT 28 U/L (13-56); Alkaline Phosphatase 86 U/L (45-117); Anion Gap 7 (5-15); BUN 24 mg/dL (7-18); BUN/Creat Ratio 22.2 RATIO (10-20); Calcium,Total 9.2 mg/dL (8.5-10.1); Chloride 103 mmol/L (98-107); Cholesterol 200 mg/dL (200); Creatinine, Serum 1.08 mg/dL (0.55-1.02); EST Glomerular Filtration Rate 54 mL/min (>60); Est Glom Filt Rate - Afr Amer 65 mL/min (>60); Globulin 3.8 g/dL (2.2-4.2); Glucose 108 mg/dL (74-106); High Density Lipoprotein 57 mg/dL; Potassium 3.8 mmol/L (3.5-5.1); Protein, Total 7.8 g/dL (6.4-8.2); Sodium Level 141 mmol/L (136-145); Triglycerides 159 mg/dL; Very Low Density Lipoprotein 32 mg/dL (5-40)
== END ==
LOC: LAB.FUTURE 09:39 → LAB 09:44
PROVIDERS: Family Provider Family Medicine; PCP Family Medicine; Referring Provider Family Medicine; Visit Provider Family Medicine
DX: I10 Essential (primary) hypertension (principal)
CPT/HCPCS: 36415; 80053; 80061

== ENCOUNTER → 2019-05-17 09:45 | Outpatient (CLI) | payer MEDICARE, SELFPAY ==
[2019-01-29 13:04] VITALS: BMI 47.2
[2019-05-17 11:24] LABS: ALB/GLOB Ratio 1.1 RATIO (0.9-2.4); AST(SGOT) 12 U/L (15-37); Alanine Aminotransfer ALT/SGPT 26 U/L (13-56); Albumin, Serum 4.2 g/dL (3.2-5.0); Alkaline Phosphatase 92 U/L (45-117); Anion Gap 5 (5-15); BUN 21 mg/dL (7-18); BUN/Creat Ratio 19.6 RATIO (10-20); Calcium,Total 9.6 mg/dL (8.5-10.1); Chloride 103 mmol/L (98-107); Cholesterol 192 mg/dL (200); Creatinine, Serum 1.07 mg/dL (0.55-1.02); EST Glomerular Filtration Rate 54 mL/min (>60); Est Glom Filt Rate - Afr Amer 66 mL/min (>60); Globulin 3.7 g/dL (2.2-4.2); Glucose 99 mg/dL (74-106); High Density Lipoprotein 52 mg/dL; Protein, Total 7.9 g/dL (6.4-8.2); Sodium Level 140 mmol/L (136-145); Triglycerides 154 mg/dL; Very Low Density Lipoprotein 31 mg/dL (5-40)
== END ==
PROVIDERS: PCP Family Medicine; Referring Provider Family Medicine; Visit Provider Family Medicine
DX: I10 Essential (primary) hypertension (principal); R73.01 Impaired fasting glucose
CPT/HCPCS: 36415; 80053; 80061

== ENCOUNTER → 2019-06-06 10:53 | Outpatient (CLI) | payer MEDICARE, SELFPAY ==
[2019-01-29 13:04] VITALS: BMI 47.2
[2019-06-06 11:35] LABS: Hematocrit 43.8 % (37-47); Hemoglobin 14.4 g/dL (12.0-15.0); Mean Corp Hgb Conc 32.9 g/dL (32-36); Mean Corpuscular Hgb 29.4 pg (27.0-32.0); Mean Corpuscular Volume 89.4 fL (81-99); Mean Platelet Vol. 10.7 fl (6.2-12.0); Platelet Count 266 K/mm3 (150-450); RBC Distribution Width CV 12.5 % (11.6-14.6); RBC Distribution Width SD 40.7 fl (35.1-43.9); White Blood Count 7.5 K/mm3 (4.4-11.0)
== END ==
PROVIDERS: PCP Family Medicine; Referring Provider Family Medicine; Visit Provider Family Medicine
DX: I10 Essential (primary) hypertension (principal)
CPT/HCPCS: 36415; 85027

== ENCOUNTER → 2019-08-02 13:03 | Outpatient (CLI) | payer MEDICARE, SELFPAY ==
[2019-01-29 13:04] VITALS: BMI 47.2
--- NOTE | 2019-08-02 13:07 | RAD_ITS ---
STUDY: X-RAY - LUMBAR SPINE REASON FOR EXAM: Female, 69 years old. Chronic low back pain TECHNIQUE: 2 view(s) of the lumbar spine were obtained. COMPARISON: None FINDINGS: There is an exaggerated lumbar lordosis. There is a minimal levoscoliosis of the lumbar spine. Minimal anterior listhesis of L4 on L5. Facet joint osteoarthritis. There is multilevel endplate spondylosis of the lumbar vertebrae. There is multi-level degenerative disc disease with multi-level disc space narrowing. Prior right hip replacement. The soft tissue structures are unremarkable. RAD/Lumbar Spine 2 or 3 Views IMPRESSION: Degenerative changes of the spine, as detailed above. Electronically Signed: Bryn Funk, at 13:42 EDT , Service support ,
== END ==
PROVIDERS: PCP Family Medicine; Referring Provider Family Medicine; Visit Provider Family Medicine
DX: M54.5 Low back pain (principal); G89.29 Other chronic pain
CPT/HCPCS: 72100

== ENCOUNTER → 2019-08-12 | Outpatient (CLI) | payer MEDICARE, SELFPAY ==
[2019-01-29 13:04] VITALS: BMI 47.2
--- NOTE | 2019-08-12 | FLU_PTH ---
PATIENT: CHERIE MORSE [facility] U#:[id number] AGE/SX: 69/F ROOM: RE08/12/[address]: Dr. Jose Luis Mann MD : 1950 BED: DIS: 08/12/2019 SPEC #: [id number] RECD: 08/12/19 16:00 STATUS: HUMZA ELIZABETH #: [id number] PALMA: 08/12/19 00:[address]: Jose Luis Mann DEPT: CYTOLOGY RECD BY: Kishore Renee ENTERED: 08/13/19 08:52 SP TYPE: Fluid OTHR DR: Dr. Amado Calvo, DO Tissues: Urine Procedures: Special Stain Group II Cytospin Fluid HEADER OPERATION: Not noted PRE-OP DIAGNOSIS: Asymptomatic microscopic hematuria R31.21 TISSUE SUBMITTED: Urine for cytology DIAGNOSIS CYTOLOGY Urine for cytology (cytospin): Negative for malignant cells. See comment. AM:rg 08/14/19 COMMENT The specimen primarily contains squamous epithelial cells and abundant bacteria. Clinical correlation is suggested. CYTOLOGY STUDY Slides are reviewed. CYTOLOGY GROSS Received is 70 ml of yellow hazy fluid labeled with the patient's name and and designated per the requisition as urine. Submitted for cytology preparation. / marci 08/13/19 TC:5 CPT: 90921
[2019-08-12 17:18] LABS: Cytology, Body Fluid / CSF SEE PATHOLOGY REPORT
--- OUTSIDE RECORDS SUMMARY | 2020-01-14 08:48 | XMS RPT_ITS | CCD ---
:1950 External Reference #:[id number] Author Organization [facility] Care Team Providers Name Role Phone [place] [employer], K Unavailable Unavailable [place] [employer], K Unavailable Unavailable IMELDA, T Attending Unavailable IMELDA, T Admitting Unavailable IMELDA, T Attending Unavailable IMELDA, T Referring Unavailable IMELDA, T Attending Unavailable IMELDA, T Referring Unavailable IMELDA, T Admitting Unavailable IMELDA, T Attending Unavailable LETA, D Referring Unavailable IMELDA, T Attending Unavailable [place] [employer], K Unavailable Unavailable Allergies Reported Allergen Reaction(s) Severity Date of Onset Location EPINEPHrine 04-12-2016 - [facility] c Translations: [ [facility] EPINEPHRINE] Repository EPINEPHrine Critical, Critical 02-03-2016 - [place] [facility]fectious Disease (71445) NKDA Translations: [ Critical 10-15-2015 - - [place] Infect[facility] NKDA] 02-03-2016 - Disease (05374) Seasonal allergy 07-15-2013 - [facility] Translations: [ [facility] SEASONAL ALLERGIES] Reposito ry Medications Medication Name Sig Date Prescriber Location acetaminophen ACETAMINOPHEN ER 650 MG 10-15-2015 [facility] CR-TABS One tablet by Diseas e (36838) mouth Q6H as needed ACETAMINOPHEN [id number] Dana Paul RN acyclovir ACYCLOVIR 800 MG TABS 10-15-2015 - [place] [facility] One tablet by mouth 12-08-2015 Disease (99640) daily x5 days ACYCLOVIR [id number] Lianne Sparrow LPN albuterol PROAIR HFA 108 (90 Base) 10-15-2015 [facility] MCG/ACT AERS as directed Dis ease (85780) ALBUTEROL SULFATE [id number] Dana Paul RN PROAIR HFA 108 (90 Base) 10-14-2015 - 12-08-2015 [place] [facility] Disease MCG/ACT AERS as directed (74215) ALBUTEROL SULFATE 19466697209 Lianne Sparrow LPN PROAIR HFA 108 (90 Base) 10-15-2015 - 12-08-2015 [facility] Disease MCG/ACT AERS as directed (36328) ALBUTEROL SULFATE 52723693920 Dana Paul RN ALBUTEROL SULFATE (2.5 MG/3ML) [place] [facility] 0.083% NEBU As Directed. (19826) ALBUTEROL SULFATE 71043575252 [place] M Alam aspirin ASPIRIN 325 MG TABS 10-15-2015 - [place] Infectious One tablet by mouth 12-08-2015 Disease (87729) daily ASPIRIN 86916444952 Lianne Sparrow LPN budesonide ENTOCORT EC 3 MG CPEP [place] [facility] One tablet by mouth Disease (71758) three times daily BUDESONIDE 15541580593 [place] Jose Guadalupe Alam cocoa butter / SENNA S 8.6-50 MG 10-15-2015 [facility] phenylephrine TABS Two tablets by Disease (77116) mouth twice daily SENNOSIDES-DOCUSATE SODIUM 82451007260 Dana Paul RN SENNA S 8.6-50 MG TABS Two tablets 10-15-2015 - 12-08-2015 [facility] Infectious by mouth twice daily Disease (55346) SENNOSIDES-DOCUSATE SODIUM 61311082802 Lianne Sparrow LPN SENNA S 8.6-50 MG TABS Two tablets 10-15-2015 [facility] Infectious by mouth twice daily Disease (50528) SENNOSIDES-DOCUSATE SODIUM 93693409275 Dana Paul RN SENNA S 8.6-50 MG TABS Two tablets 10-15-2015 - 12-08-2015 [facility] Infectious by mouth twice daily Disease (82955) SENNOSIDES-DOCUSATE SODIUM 43948344342 Lianne Sparrow LPN Docusate / SENNA S 8.6-50 MG TABS Two 10-15-2015 - [place] [facility] sennosides, INTERMEDIATE tablets by mouth twice 12-08-2015 Di sease (34569) daily SENNOSIDES-DOCUSATE SODIUM 20906206414 Dana Paul RN doxycycline DOXYCYCLINE HYCLATE 100 MG [place] [facility] CAPS One tablet by mouth Dis ease (89988) twice daily DOXYCYCLINE HYCLATE 92762655672 Lianne Sparrow LPN ENDOCORT ENDOCORT One tablet by [place] [facility] mouth daily ENDOCORT Nalini Disease (25482) J Signs ENDOCORT One tablet by mouth daily ENDOCORT [place] Infect[facility] Disease (27464) Nalini J Signs ENDOCORT One tablet by mouth daily ENDOCORT [place] Infectious Disease (02263) Nalini J Signs fluticasone FLONASE ALLERGY RELIEF 50 MCG/ACT [facility] Infect[facility] Disease (82669) SUSP 1 sp EN bid FLUTICASONE PROPIONATE 50016147452 Lianne Sparrow LPN FLONASE ALLERGY RELIEF 50 MCG/ACT SUSP 1 sp EN [facility] Infect[facility] Disease (52144) bid FLUTICASONE PROPIONATE 35592935526 Lianne Sparrow LPN hydroCHLOROthiazide HYDROCHLOROTHIAZIDE 25 MG TABS [place] [facility] One tablet by mouth daily Di sease (97556) HYDROCHLOROTHIAZIDE 19728293743 Lianne Sparrow LPN loratadine LORATADINE 10 MG TABS as needed 10-15-2015 [facility] Infectious LORATADINE Diseas e (74171) 88627729073 Dana Paul RN meloxicam MELOXICAM 15 MG TABS One tablet [facility] Infectious by mouth daily MELOXICAM Dis ease (75780) 35663031527 Lianne Sparrow LPN metoprolol METOPROLOL TARTRATE 50 MG TABS 10-15-2015 [facility] One tablet by mouth twice daily Disease (84229) METOPROLOL TARTRATE 95846708274 Dana Paul RN olmesartan BENICAR 20 MG TABS 1 tablet by 10-15-2015 [facility] mouth every evening Disease (16493) OLMESARTAN MEDOXOMIL 97353089104 Dana Paul RN oxyCODONE OXYCODONE HCL 5 MG TABS 1-2 10-15-2015 [facility] tablets by mouth Q4H as needed - Disease (93236) OXYCODONE 01-20-2016 HCL 96251957549 Chung Stern pantoprazole PROTONIX 40 MG TBEC One tablet [place] [facility]ious by mouth daily PANTOPRAZOLE Disease (23851) SODIUM 46570182649 Lianne Sparrow LPN PROTONIX 40 MG TBEC One tablet by mouth daily [place] Infectious Disease (29893) PANTOPRAZOLE SODIUM 98528315717 Lianne Sparrow LPN POLYETHYLENE GLYCOL MIRALAX PACK Take as 10-15-2015 - [facility] Infectious 3350 directed 12-08-2015 Disease (61932) POLYETHYLENE GLYCOL 3350 36444675613 Lianne Sparrow LPN MIRALAX PACK Take as directed 10-15-2015 [place] Infectious Disease (01518) POLYETHYLENE GLYCOL 3350 32717116266 Dana Paul RN polyethylene glycols MIRALAX PACK Take as 10-15-2015 - [place] Infectious directed 12-08-2015 Disease (85577) POLYETHYLENE GLYCOL 3350 [id number] Lianne Sparrow [employer]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 MIRALAX PACK Take as directed 10-15-2015 [place] Infectious Disease POLYETHYLENE GLYCOL ( 42590) 3350 [id number] Dana Paul RN MIRALAX PACK Take as directed 10-14-2015 - 12-08-2015 [facility] Infectious Disease (39727) POLYETHYLENE GLYCOL 3350 04790142597 Lianne Sparrow 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 MIRALAX PACK Take as directed 10-15-2015 [place] Infectious Disease POLYETHYLENE GLYCOL ( 39794) 3350 01057353689 Dana Paul RN polysaccharide iron complex FERREX 150 CAPS One tablet by [facility] Infectious mouth daily POLYSACCHARIDE D isease (79338) IRON COMPLEX CAPS 80797016414 Lianne Sparrow LPN FERREX 150 CAPS One tablet by mouth daily [facility] Infectious Disease (43641) POLYSACCHARIDE IRON COMPLEX CAPS 34091918809 Lianne Sparrow LPN FERREX 150 CAPS One tablet by mouth daily [facility] Infectious Disease (25372) POLYSACCHARIDE IRON COMPLEX CAPS 75205613696 Lianne Sparrow LPN rivaroxaban XARELTO 20 MG TABS One 03-30-2016 Maggy R Reanna 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 [place] Infectious tablet by mouth daily Diseas e (70625) RIVAROXABAN 65197800207 Mgagy Svetlana VegaReanna [employer]ILRO[employer]TER XARELTO 15 MG TABS One tablet 03-14-2016 [place] Infectious Disease by mouth twice daily for 21 (441 91) days then going to 20 mg once daily RIVAROXABAN 52461009726 Chung Shi Alam XARELTO 10 MG TABS One tablet 10-15-2015 - 12-08-2015 [place] [facility] Disease by mouth daily (73162 ) RIVAROXABAN 02080842213 Lianne Sparrow LPN traZODone TRAZODONE HCL 50 MG TABS 10-15-2015 - 12-08-2015 [facility] One tablet by mouth daily Di sease (42041) @ bedtime TRAZODONE HCL 08480830166 Lianne Sparrow LPN Problems Active Problems Category Problem Name Status Date Location Coagulation and Factor V Leiden Active 01-20-2016 - I nfectious hemorrhagic disorders mutation Diseas e (30155) 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 (31400) Esophageal disorders Gastro-esophageal Active 10-24-2017 - [facility] reflux disease without [place] (90645) esophagitis Essential hypertension Hypertensive disorder Active - Infectious Disease (38834) Other nutritional; Morbid obesity Active 12-08-2015 - [place] Infectious endocrine; and Disease (4469 1) metabolic disorders Past or Other Problems Category Problem Name Status Date Location Abdominal pain Epigastric pain Completed 09-12-2017 - [facility] (0000 0) Complication of device; Infection and Completed 12-08-2015 - [facility] Infect[facility] implant or graft inflammatory Disease (44 691) reaction due to other internal prosthetic devices, implants and grafts, initial encounter Open wounds of Unspecified open Completed 12-08-2015 - [place] I nfectious extremities wound, unspecified Disease ( 20513) lower leg, subsequent encounter Other diseases of veins Venous stasis Completed 02-03-2016 - [facility] Infectious and lymphatics Disease (4469 1) Phlebitis; Deep venous Completed 12-08-2015 - [place] Infecti ous thrombophlebitis and thrombosis Disease (41627) thromboembolism Spondylosis; Sacroiliac joint Completed 09-09-2016 - [place] Inf ectious intervertebral disc pain Disease (44911) disorders; other back problems Results Result Name Value Range Unit Interpretation Flag Date Location obsolete on 2018-06 OBSOLETE Refill (GENSWS) Normal 06-20-2018 [facility] JACQUIE ALDANA I ([id number]) 1950 [facility] Time Provider Department ([id number]) 06/20/18 DANDRE SEGURA During your visit today, we recorded the following informati on about you: Allergies As of Date: 06/20/2018 Noted Allergy Reaction SEASONAL ALLERGIES 07/15/2013 14 - Other: See Comments Comments: Nasal congestion. Gets allergy injections. Date Reviewed: 10/31/2017 Reviewed by: Dandre Segura - Fully Assessed Reason for Visit: Refill Request [94] Order(s):Omeprazole 40 mg capsuleTAKE 1 CAPSULE TWICE DAILYD isp: 60 capsuleRfl: 2 Prescriptions as of 06/20/2018 Sig: OMEPRAZOLE 40 MG CAPSULE,CASANDRA* TAKE 1 CAPSULE TWICE DAILY LOSARTAN 100 MG TABLET Take 100 mg by mouth once liliana* ASPIRIN 81 MG CHEWABLE TABLET Take 81 mg by mouth once moses* ALBUTEROL INHALATION Inhale as instructed as need* HYDROCHLOROTHIAZIDE 25 MG TAB* Take 25 mg by mouth once moses * METOPROLOL TARTRATE 50 MG TAB* Take 50 mg by mouth twice liliana * MELOXICAM 15 MG TABLET Take 15 mg by mouth once moses* RIVAROXABAN 20 MG TABLET Take 20 mg by mouth daily wit* CLARITIN ORAL Take by mouth. * TYLENOL PM 25 MG-500 MG/15 ML* Take as needed Problem List As Of Date: 06/20/2018 (None) Prescriptions ordered this encounter Disp Refills Start End OMEPRAZOLE 40 MG CAPSULE,DELAYED REL* 60 c* 2 06/27/2018 Sig: TAKE 1 CAPSULE TWICE DAILY Medications Discontinued During This Encounter Omeprazole (PRILOSEC) 40 mg capsule 60 c* 2 03/22/20182018 Route: ORAL Sig: Take 1 capsule by mouth twice daily. Disc: Reason for discontinue is not on file. Encounter Status:Closed by DANDRE SEGURA MD on 06/27/18 progress on 2017-10 Protein mass HNO ID: [id number] Normal 11-01-[address] [place] [address] Author: Dandre Segura [facility] Service: (none) Dannie jackson Author Type: Physician ([id number]) Type: Progress Notes Filed: 10/31/2017 8:11 PM Note Text: FOLLOW UP VISIT - ENDOSCOPY [place] [facility] [place] [facility] [place] [id number] DATE OF SERVICE: 09/19/2017 : 1950 REFERRING [...] has undergone prior endoscopy, She had colonoscopy per formed by Dr. Yanez 1-1/2 years previously which demonstrate diverticulos is. She has not had upper endoscopy. I performed upper endoscopy on September 12, 2017. The patient wa s found to have a superficial gastric ulcer with no significant bleedin g. There was a crater duodenal ulcer. Pathology demonstrated: Reactive gastropathy and intestinal metaplasia for the antra l area. No H. pylori organisms were noted The patient notes no complaints since the procedure. She underwent follow-up upper endoscopy on October 24, 2017. Th is demonstrated complete healing of the duodenal ulcer and very mild gastritis. Pathology returned as: FINAL DIAGNOSIS Stomach, antrum, biopsy - Gastric antral-type mucosa with mi ld reactive epithelial changes. - No intestinal metaplasia or morphologic evidence of Helico bacter pylori organisms. VITALS: There were no vitals taken for this visit. On examination, the abdomen is benign. Assessment IMPRESSION: Duodenal and gastric ulcers PLAN: If the patient notes any problems or changes in bowel functi on, the patient should contact me immediately. The patient should be maintained on proton pump inhibitors. Diagnoses: (K26.9) Duodenal ulcer without hemorrhage or perf oration and without obstruction (primary encounter diagnosis) Return to Clinic: The patient is instructed to follow-up wit h me as needed. MD kimberly Jansen on 2017-10-31 CNOV Office Visit (GENSWS) Normal 11-01-19 18 [facility] JACQUIE ALDANA I ([id number]) 1950 [facility] Time Provider Department ([id number]) 10/31/17 1:40 PM DANDRE SEGURA During your visit today, we recorded the following informati on about you: Dandre Segura MD 10/31/2017 8:11 PM Signed FOLLOW UP VISIT - ENDOSCOPY [place] [facility] [place] [id number] DATE OF SERVICE: 09/19/2017 : 1950 REFERRING PHYSICIAN: Italo Eng DO Jacquie notes no current colon complaints, but I had seen her for diverticulitis in the past when she required a laparoscopic washout. She murry s had no colon challenges since that time. More recently, Jacquie notes epigastric pain for approximate ly one month. She notes the pain is significantly improved after she eats food , specifically yogurt . Jacquie has undergone prior endoscopy, She had colonoscopy per formed by Dr. Yanez 1-1/2 years previously which demonstrate diverticul osis. She has not had upper endoscopy. I performed upper endoscopy on September 12, 2017. Th e patient was found to have a superficial gastric ulcer with no significant bleeding. Ther e was a crater duodenal ulcer. Pathology demonstrated: Reactive gastropathy and intestinal metaplasia for the antra l area. No H. pylori organisms were noted The patient notes no complaints since the procedure. She underwent follow-up upper endoscopy on October 24, 2017. This demonstrated complete healing of the duodenal ulcer and very mild gastrit is. Pathology returned as: FINAL DIAGNOSIS Stomach, antrum, biopsy - Gastric antral-type mucosa with mi ld reactive epithelial changes. - No intestinal metaplasia or morphologic evidence of Helico bacter pylori organisms. VITALS: There were no vitals taken for this visit. On examination, the abdomen is benign. Assessment IMPRESSION: Duodenal and gastric ulcers PLAN: If the patient notes any problems or changes in bowel functi on, the patient should contact me immediately. The patient should be maintained on proton pump inhibitors. Diagnoses: (K26.9) Duodenal ulcer without hemorrhage or perforation and without obstruction (primary encounter diagnosis) Return to Clinic: The patient is instructed to follow-up w ith me as needed. Dandre Segura MD Referring Provider: SELF [200] Allergies As of Date: 10/31/2017 Noted Allergy Reaction SEASONAL ALLERGIES 07/15/2013 14 - Other: See Comments Comments: Nasal congestion. Gets allergy injections. Date Reviewed: 10/31/2017 Reviewed by: Dandre Segura - Fully Assessed Reason for Visit: Post Op [174] Primary Visit Diagnosis:Duodenal ulcer without hemorrh age or perforation and without obstruction [K26.9] Prescriptions as of 10/31/2017 Sig: OMEPRAZOLE 40 MG CAPSULE,CASANDRA* Take 1 capsule by mouth twice * LOSARTAN 100 MG TABLET Take 100 mg by mouth once liliana* ASPIRIN 81 MG CHEWABLE TABLET Take 81 mg by mouth once moses* ALBUTEROL INHALATION Inhale as instructed as need* HYDROCHLOROTHIAZIDE 25 MG TAB* Take 25 mg by mouth once moses * METOPROLOL TARTRATE 50 MG TAB* Take 50 mg by mouth twice liliana * MELOXICAM 15 MG TABLET Take 15 mg by mouth once moses* RIVAROXABAN 20 MG TABLET Take 20 mg by mouth daily wit* CLARITIN ORAL Take by mouth. * TYLENOL PM 25 MG-500 MG/15 ML* Take as needed Problem List As Of Date: 10/31/2017 (None) Letter Text Encounter Status:Closed by DANDRE SEGURA MD on 10/31/17 surgical pathology on 2017-10-24 SURGICAL Specimen originated from [facility] Normal 10-24-2017 [facility] Specimen #: [id number] Clinic Submitting Physician: DANDRE SEGURA ([id number]) [facility] ([id number]) FINAL DIAGNOSIS Stomach, antrum, biopsy - Gastric antral-type mucosa with mi ld reactive epithelial changes. - No intestinal metaplasia or morphologic evidence of Helico bacter pylori organisms. ES/db 10/25/2017 Irma Friedman M.D. (Electronic Signature) SPECIMEN SUBMITTED A: ANTRUM, BIOPSY H/H CLINICAL DATA K26.9 GROSS DESCRIPTION A. Received in formalin is one piece of mariee, soft tissue isabel suring 0.6 x 0.2 x 0.1 cm. Totally submitted in one c Gross examination performed at [facility], [address] [place] [address] 10/25/2017 1:51:10 AM maryan. Date of Report: 10/25/2017 Date of Procedure: 10/24/2017 Date of Receipt: 10/24/2017 Submitted by: DANDRE SEGURA ([id number]) Location: W010 Diagnostic interpretation performed at [place] [address]. pt ed on 2017-10-24 PT ED HNO ID: [id number] Normal 10-24-2017 [facility] Author: Erendira Ralph RN [facility] ([id number]) Service: Nursing Author Type: Registered Nurse Type: Patient Education Filed: 10/24/2017 12:28 PM Note Text: POST OP LEARNING RESPONSE INSTRUCTION PROVIDED TO: Patient and Spouse METHOD OF INSTRUCTION: Written instruction - handouts Verbal instruction PATIENT / FAMILY RESPONSE: Verbalizes understanding of: INFE CTION MANAGEMENT-Signs and symptoms of an infection and importance of contacting the physician PHYSICAL RESTRICTIONS-Physical restrictions and recommendati ons after discharge from the hospital POST-PROCEDURE INSTRUCTIONS-Correct actions to take to reduc e post procedure complications PATIENT SAFETY PRINCIPLES WORSENING CONDITION-Signs and symptoms of a worsening condit ion that warrant a call to the physician FOLLOW-UP PLAN: Patient instructed to call with any further issues Follow up phone call. SUPPLEMENTAL MATERIAL: Procedure discharge instructions REFERRAL (RECOMMENDATION): None Electronically Signed By: Erendira Ralph RN In Dep artment: AMBULATORY SURGERY PT ED HNO ID: [id number] Normal 10-24-2017 [facility] Author: Lissy Randolph RN [facility] ([id number]) Service: (none) Author Type: Registered Nurse Type: Patient Education Filed: 10/24/2017 10:15 AM Note Text: Discharge Instructions were reviewed pre-operatively with th e patient. All questions and concerns were addressed. Lissy Randolph RN PRE OP LEARNING ASSESSMENT PROCEDURE/SURGERY: GI PROCEDURES: EGD READINESS TO LEARN COGNITIVE ABILITY: Alert and oriented MOTIVATION TO LEARN: Interested FAMILY SUPPORT: Unable to assess - Family not present PATIENT LEARNS BEST BY: Multiple Methods FACTORS AFFECTING LEARNING: None PHYSICAL LIMITATIONS AFFECTING LEARNING: None Electronically Signed By: Lissy Randolph RN In Department : AMBULATORY SURGERY nursing prog on 201 11-08-23 Protein mass conc HNO ID: [id number] Normal [facility] Author: Erendira Ralph RN [facility] ([id number]) Service: Nursing Author Type: Registered Nurse Type: Nursing Progress Note Filed: 10/24/2017 12:45 PM Note Text: Patient did not experience a fall prior to discharge. Patient did not experience a burn prior to discharge. Erendira Ralph RN Protein mass conc HNO ID: [id number] Normal [facility] Author: JUWAN Benjamin [place] ([id number]) Service: Nursing Author Type: Registered Nurse Type: Nursing Progress Note Filed: 10/24/2017 12:16 PM Note Text: Dr. Segura at bedside with patient and patient's . O utcome of procedure reviewed with patient and questions answered. Erendira Ralph RN Protein mass conc HNO ID: [id number] Normal [facility] Author: Inessa Bagley RN [facility] ([id number]) Service: Nursing Author Type: Registered Nurse Type: Nursing Progress Note Filed: 10/24/2017 12:06 PM Note Text: Patient did not experience a fall within the Intraoperative area. Patient did not experience a burn within the Intraoperative area. Inessa Bagley RN Protein mass conc HNO ID: [id number] Normal [facility] Author: Lissy Randolph RN [facility] ([id number]) Service: (none) Author Type: Registered Nurse Type: Nursing Progress Note Filed: 10/24/2017 11:28 AM Note Text: [facility] PRE-OP NURSING HAND OFF NOTE SBAR Hand off given to Inessa Bagley RN. Hand off was communicated verbally and at the patient's beds nicholas and all questions were answered. FALLS/NORRIS Patient did not experience a fall within the Preoperative ar ea. Patient did not experience a burn within the Preoperative ar ea. Lissy Randolph RN history physical on 2017-10-24 HISTORY HNO ID: [id number] Normal 10-24-2017 [facility] Author: Dandre Segura [facility] Service: General Surgery [facility] Author Type: Physician ([id number]) Type: HANDP Filed: 10/24/2017 9:33 AM Note Text: FOLLOW UP VISIT - ENDOSCOPY ? ? [id number] DATE OF SERVICE: 09/19/2017 ? ? : 1950 ? ? REFERRING PHYSICIAN: Italo Eng, DO ? Jacquie notes no current colon complaints, but I had seen he r for diverticulitis in the past when she required a laparoscopic washout. She has had no colon challenges since that time. ? More recently, Jacquie notes epigastric pain for approximate ly one month. She notes the pain is significantly improved after she eats food, specifically yogurt . ? Jacquie has undergone prior endoscopy, She had colonoscopy performed by Dr. Yanez 1-1/2 years previously which demonstrate diverticulos is. She has not had upper endoscopy. ? I performed upper endoscopy on September 12, 2017. The patient was found to have a superficial gastric ulcer with no significant bleedin g. There was a crater duodenal ulcer. ? Pathology demonstrated: ? Reactive gastropathy and intestinal metaplasia for the a ntral area. No H. pylori organisms were noted ? The patient notes no complaints since the procedure. ? VITALS: There were no vitals taken for this visit. ? ? On examination, the abdomen is benign. ? ? Assessment IMPRESSION: Duodenal and gastric ulcers ? PLAN: If the patient notes any problems or changes in bowel functi on, the patient should contact me immediately. Otherwise I recommend follow up endoscopy in approximately one month to assure healing. The patient should be maintained on proton pump inhibitors. ? ? Diagnoses: (K26.9) Duodenal ulcer without hemorrhage o r perforation and without obstruction (primary encounter diagnosis) ? Return to Clinic: The patient is instructed to follow-up w shira basurto in 1 month. ? ? ? Dandre Segura MD ? progress on 2017-09 Protein mass HNO ID: [id number] Normal 09-24-[address] [place] [address] Author: Dandre Segura [facility] Service: (none) Dannie jackson Author Type: Physician ([id number]) Type: Progress Notes Filed: 09/23/2017 5:31 PM Note Text: FOLLOW UP VISIT - ENDOSCOPY NAME: Jacquie Adlana CLINIC NO.: [id number] DATE OF SERVICE: 09/19/2017 : 1950 REFERRING [...] has undergone prior endoscopy, She had colonoscopy per formed by Dr. Yanez 1-1/2 years previously which demonstrate diverticulos is. She has not had upper endoscopy. I performed upper endoscopy on September 12, 2017. The patient wa s found to have a superficial gastric ulcer with no significant bleedin g. There was a crater duodenal ulcer. Pathology demonstrated: Reactive gastropathy and intestinal metaplasia for the antra l area. No H. pylori organisms were noted The patient notes no complaints since the procedure. VITALS: There were no vitals taken for this visit. On examination, the abdomen is benign. Assessment IMPRESSION: Duodenal and gastric ulcers PLAN: If the patient notes any problems or changes in bowel functi on, the patient should contact me immediately. Otherwise I recommend follow up endoscopy in approximately one month to assure healing. The patient should be maintained on proton pump inhibitors. Diagnoses: (K26.9) Duodenal ulcer without hemorrhage or perf oration and without obstruction (primary encounter diagnosis) Return to Clinic: The patient is instructed to follow-up wit h me in 1 month. Dandre Segura MD hosp on 2017-09-19 HOSP Patient:Jacquie Aldana I Normal 018 [facility] MRN: Noel ([id number]) Height:5' 1(1.549 m) Weight:No patient weight recorded [...] acetaminophen/dp-hydram hcl(TYLENOL PM 25 MG-500 MG/15 ML OR AL SOLN) Admission/Clinic Administered Medications as of 10/24/17: lactated ringers infusion Problem List: No problem list on file for this patient. Allergies: Seasonal Allergies Date Verified: 10/24/17 Lab Values No results within the last 30 days for the following basenam es: K,HCT No progress notes entered within the past 30 days cnov on 2017-09-19 CNOV Office Visit (GENSWS) Normal 09-20-19 [facility] JACQUIE ALDANA I ([id number]) [address] [facility] Date Time Provider Department ([id number]) 09/19/17 2:30 PM DANDRE SEGURA During your visit today, we recorded the following informati on about you: Dandre Segura MD 09/23/2017 5:31 PM Signed FOLLOW UP VISIT - ENDOSCOPY NAME: Jacquie Aldana CLINIC NO.: [id number] DATE OF SERVICE: 09/19/2017 : 1950 REFERRING PHYSICIAN: Italo Eng DO Jacquie notes no current colon complaints, but I had seen her for diverticulitis in the past when she required a laparoscopic washout. She murry s had no colon challenges since that time. More recently, Jacquie notes epigastric pain for approximate ly one month. She notes the pain is significantly improved after she eats food , specifically yogurt . Jacquie has undergone prior endoscopy, She had colonoscopy per formed by Dr. Yanez 1-1/2 years previously which demonstrate diverticul osis. She has not had upper endoscopy. I performed upper endoscopy on September 12, 2017. Th e patient was found to have a superficial gastric ulcer with no significant bleeding. Ther e was a crater duodenal ulcer. Pathology demonstrated: Reactive gastropathy and intestinal metaplasia for the antra l area. No H. pylori organisms were noted The patient notes no complaints since the procedure. VITALS: There were no vitals taken for this visit. On examination, the abdomen is benign. Assessment IMPRESSION: Duodenal and gastric ulcers PLAN: If the patient notes any problems or changes in bowel functi on, the patient should contact me immediately. Otherwise I recommend follow up endoscopy in approximately one month to assure h ealing. The patient should be maintained on proton pump inhibitors. Diagnoses: (K26.9) Duodenal ulcer without hemorrhage or perforation and without obstruction (primary encounter diagnosis) Return to Clinic: The patient is instructed to follow-up wit h me in 1 month. Dandre Segura MD Referring Provider: DANDRE SEGURA [[id number]] Allergies As of Date: 09/19/2017 Noted Allergy Reaction SEASONAL ALLERGIES 07/15/2013 14 - Other: See Comments Comments: Nasal congestion. Gets allergy injections. Date Reviewed: 09/19/2017 Reviewed by: Dandre Segura - Fully Assessed Reason for Visit: Post Op [174] Primary Visit Diagnosis:Duodenal ulcer without hemorrh age or perforation and without obstruction [K26.9] Prescriptions as of 09/19/2017 Sig: OMEPRAZOLE 40 MG CAPSULE,CASANDRA* Take 1 capsule by mouth twice * LOSARTAN 100 MG TABLET Take 100 mg by mouth once liliana* ASPIRIN 81 MG CHEWABLE TABLET Take 81 mg by mouth once moses* ALBUTEROL INHALATION Inhale as instructed as need* HYDROCHLOROTHIAZIDE 25 MG TAB* Take 25 mg by mouth once moses * METOPROLOL TARTRATE 50 MG TAB* Take 50 mg by mouth twice liliana * MELOXICAM 15 MG TABLET Take 15 mg by mouth once moses* RIVAROXABAN 20 MG TABLET Take 20 mg by mouth daily wit* CLARITIN ORAL Take by mouth. * TYLENOL PM 25 MG-500 MG/15 ML* Take as needed Problem List As Of Date: 09/19/2017 (None) Letter Text Encounter Status:Closed by DANDRE SEGURA MD on 09/23/17 surgical pathology on 2017-09-12 SURGICAL Specimen originated from [facility] Normal 09-12-2017 [facility] Specimen #: [id number] Clinic Submitting Physician: DANDRE SEGURA ([id number]) [facility] ([id number]) FINAL DIAGNOSIS Stomach, antrum, biopsy - Gastric antral type mucosa with re active gastropathy and intestinal metaplasia; negative for dyspla fallon; see comment. SS/rw 09/14/2017 COMMENT No microorganisms morphologically compatible with H. pylori are identified on routine H&E stained sections. Ghada Marin M.D. (Electronic Signature) SPECIMEN SUBMITTED A: ANTRUM, BIOPSY H/H CLINICAL DATA R10.13 GROSS DESCRIPTION A. Received in formalin is one piece of mariee, soft tissue isabel suring 0.4 x 0.3 x 0.2 cm. Totally submitted in one cassette. Gross examination performed at [facility], [address] [place] [address] 09/13/2017 2:30:28 AM Date of Report: 09/14/2017 Date of Procedure: 09/12/2017 Date of Receipt: 09/12/2017 Submitted by: DANDRE SEGURA ([id number]) Location: [facility] Diagnostic interpretation performed at [facility], [address] [place] [address]. pt ed on 2017-09-12 PT ED HNO ID: [id number] Normal 09-12-2017 [facility] Author: Lissy Randolph RN [facility] ([id number]) Service: (none) Author Type: Registered Nurse Type: Patient Education Filed: 09/12/2017 12:28 PM Note Text: POST OP LEARNING RESPONSE INSTRUCTION PROVIDED TO: Patient and family member METHOD OF INSTRUCTION: Individual instruction Written instruction - handouts Verbal instruction PATIENT / FAMILY RESPONSE: Information received as demonstra seth by interest and questions FOLLOW-UP PLAN: Follow up phone call. Contact information given. Followup appointment with Dr. Segura in one week--scheduled SUPPLEMENTAL MATERIAL: Procedure discharge instructions REFERRAL (RECOMMENDATION): None Electronically Signed By: Lissy Randolph RN In Department : AMBULATORY SURGERY PT ED HNO ID: [id number] Normal 09-12-2017 [facility] Author: JUWAN Morales Rnveland ([id number]) Service: (none) Author Type: Registered Nurse Type: Patient Education Filed: 09/12/2017 10:06 AM Note Text: Discharge Instructions were reviewed pre-operatively with th e patient. All questions and concerns were addressed. Lissy Randolph RN PRE OP LEARNING ASSESSMENT PROCEDURE/SURGERY: GI PROCEDURES: Colonoscopy and EGD READINESS TO LEARN COGNITIVE ABILITY: Alert and oriented MOTIVATION TO LEARN: Interested FAMILY SUPPORT: Unable to assess - Family not present PATIENT LEARNS BEST BY: Multiple Methods FACTORS AFFECTING LEARNING: None PHYSICAL LIMITATIONS AFFECTING LEARNING: None Electronically Signed By: Lissy Randolph RN In Department : AMBULATORY SURGERY nursing prog on 201 11-07-11 Protein mass conc HNO ID: [id number] Normal [facility] Author: Lissy Randolph RN [facility] ([id number]) Service: (none) Author Type: Registered Nurse Type: Nursing Progress Note Filed: 09/12/2017 12:37 PM Note Text: Patient did not experience a fall prior to discharge. Patient did not experience a burn prior to discharge. Lissy Randolph RN Protein mass conc HNO ID: [id number] Normal [facility] Author: Lissy Randolph RN [facility] ([id number]) Service: (none) Author Type: Registered Nurse Type: Nursing Progress Note Filed: 09/12/2017 12:09 PM Note Text: Arrived in phase II via cart. Left lateral position. Sedated , but responds to verbal stimuli. Color normal; skin warm and dry. Respirations wnl and unlabored. Abdomen soft and with + flower l sounds in quads X 4. Family at bedside. Patient resting comfortably. Mari Peng at bedside to review procedure and recommendations. Linette Randolph RN Protein mass conc HNO ID: [id number] Normal [facility] Author: Inessa Bagley RN [facility] ([id number]) Service: Nursing Author Type: Registered Nurse Type: Nursing Progress Note Filed: 09/12/2017 11:35 AM Note Text: Patient did not experience a fall within the Intraoperative area. Patient did not experience a burn within the Intraoperative area. Inessa Bagley RN Protein mass conc HNO ID: [id number] Normal [facility] Author: Marzena Duran RN [facility] ([id number]) Service: (none) Author Type: Registered Nurse Type: Nursing Progress Note Filed: 09/12/2017 12:10 PM Note Text: [facility] PRE-OP NURSING HAND OFF NOTE SBAR Hand off given to Inessa Bagley RN. Hand off was communicated verbally and at the patient's beds nicholas and all questions were answered. FALLS/NORRIS Patient did not experience a fall within the Preoperative ar ea. Patient did not experience a burn within the Preoperative ar ea. Marzena Duran RN Protein mass conc HNO ID: [id number] Normal [facility] Author: Lissy Randolph RN [facility] ([id number]) Service: (none) Author Type: Registered Nurse Type: Nursing Progress Note Filed: 09/12/2017 12:08 PM Note Text: [facility] PRE-OP NURSING HAND OFF NOTE SBAR Hand off given to Marzena Duran RN. Hand off was communicated verbally and at the patient's beds nicholas and all questions were answered. Lissy Randolph RN history physical on 2017-09-12 HISTORY HNO ID: [id number] Normal 09-12-2017 [facility] Author: Dandre Sheikh [facility] Service: General Surgery [facility] Author Type: Physician ([id number]) Type: HANDP Filed: 09/12/2017 10:27 AM Note Text: HISTORY AND PHYSICAL ? Jacquie Yeimy Aldana 1950 ? REFERRING PHYSICIAN: Self ? CHIEF COMPLAINT: Established Patient (Stomach pain) ? HPI: The patient is a 67 year old female referred for endosc opy. Jacquie notes no current colon complaints, but I had seen her for di verticulitis in the past when she required a laparoscopic washout. She murry s had no colon challenges since that time. ? More recently, Jacquie notes epigastric pain for approximately one month. She notes the pain is significantly improved after she eats food, specifically yogurt . ? Jacquie has undergone prior endoscopy, She had colonoscopy per formed by Dr. Yanez 1-1/2 years previously which demonstrate diverticulos is. She has not had upper endoscopy. ? [...] ? Laparoscopy, peritoneal wash out and culture [facility] - TOTAL HIP REPLACEMENT Right 09/2015 ? revision 10/16 ? ? ? CURRENT MEDICATIONS ? Current Outpatient Prescriptions: losartan (COZAAR) 100 mg tablet Take 100 mg by mouth once da chelsie. aspirin 81 mg chewable tablet Take 81 mg by mouth once daily . hydroCHLOROthiazide (HYDRODIURIL, ESIDRIX) 25 mg tablet Take 25 mg by mouth once daily. metoprolol tartrate, short acting, (LOPRESSOR) 50 mg tablet Take 50 mg by mouth twice daily. meloxicam (MOBIC) 15 mg tablet Take 15 mg by mouth once moses y. rivaroxaban (XARELTO) 20 mg tablet Take 20 mg by mouth daily with dinner. LORATADINE (CLARITIN ORAL) Take by mouth. oxyCODONE IR (ROXICODONE) 5 mg immediate release tablet Take 25 mg by mouth twice daily. ALBUTEROL INHALATION Inhale as instructed as needed. IRON PS CMPLX/VIT B12/FA (FERREX 150 FORTE ORAL) Take 1 tabl et by mouth once daily. pantoprazole DR (PROTONIX) [...] acetaminophen/dp-hydram hcl(TYLENOL PM 25 MG-500 MG/15 ML OR AL SOLN) Take as needed ? No current [...] data was entered by the nurse and revi ewed by me ? There are no exam notes on file for this visit. ? PHYSICAL EXAMINATION: ? General: The patient is 67 year old female, well nourished, well hydrated in no acute distress. The patient is oriented to time, place , and person. ? VITALS: Blood pressure 144/66, pulse 76, weight 102 kg (224 lb 12.8 oz). Body mass index is 42.48 kg/m?. ? HEENT: Normal cephalic, ataumatic, pupils are equally round, sclera are anicteric, mucous membranes are moist, oropharynx is clear. Neck has no masses, asymmetry or lymphadenopathy. Thyroid is unremarkabl e. ? Respiratory: Clear to auscultation and percussion. Normal re spiratory excursion and pattern. ? Cardiac: Examination is [...] to perform upper endoscopy. We discussed the ri sks and benefits of the planned endoscopy. I have informed the patie nt that complications can occur including failure to complete the en doscopy and perforation. The patient had the opportunity to ask question s concerning the planned endoscopy. My staff has also explained the proce dure to the patient in understandable terms and has given the patient pr inted material concerning the procedure. The patient freely consents to chaim stalin. ? Diagnoses: (K21.9) Gastroesophageal reflux disease, esophagi tis presence not specified (primary encounter diagnosis) ? A letter was sent to Dr. Italo Eng, DO indicating t he above finding for this patient. Return to Clinic: The patient is instructed to follow-up wit h me after the testing has been completed. ? Dandre Segura MD progress on 2017-09 Protein mass HNO ID: [id number] Normal 09-03-19 18 [facility] Author: Dandre Segura Clinic Service: (none) Dannie jackson Author Type: Physician ([id number]) Type: Progress Notes Filed: 09/02/2017 9:55 AM Note Text: HISTORY AND PHYSICAL Jacquie Gaffney Katya 1950 REFERRING PHYSICIAN: Self CHIEF COMPLAINT: Established Patient (Stomach pain) HPI: The patient is a 67 year old female referred for endosc opy. Jacquie notes no current colon complaints, but I had seen her for di verticulitis in the past when she required a laparoscopic washout. She murry s had no colon challenges since that time. More recently, Jacquie notes epigastric pain for approximately one month. She notes the pain is significantly improved after she eats food, specifically yogurt . Jacquie has undergone prior endoscopy, She had colonoscopy per formed by Dr. Yanez 1-2 years previously which demonstrate diverticulos is. She has not had upper endoscopy. The patient is being seen by me today at the request of Dr. Italo Eng, for my opinion and advice regarding epigastric pain. PAST MEDICAL HISTORY Diagnosis Date - Breast cyst - Hemorrhoids - Hypercholesteremia - Hypercoagulopathy (HCC) - Hypertension - Reflux PAST SURGICAL HISTORY Procedure Laterality Date - CYST ASPIRATION Bilateral Breast - DANDC DIAG AND/OR THERAP, NOT OB - L'SCOPE DX W/WO BRUSHINGS/WASHINGS 01/17/2017 Laparoscopy, peritoneal wash out and culture [facility] - TOTAL HIP REPLACEMENT Right 09/2015 revision 10/16 Current Outpatient Prescriptions: losartan (COZAAR) 100 mg tablet Take 100 mg by mouth once da chelsie. aspirin 81 mg chewable tablet Take 81 mg by mouth once daily . hydroCHLOROthiazide (HYDRODIURIL, ESIDRIX) 25 mg tablet Take 25 mg by mouth once daily. metoprolol tartrate, short acting, (LOPRESSOR) 50 mg tablet Take 50 mg by mouth twice daily. meloxicam (MOBIC) 15 mg tablet Take 15 mg by mouth once moses y. rivaroxaban (XARELTO) 20 mg tablet Take 20 mg by mouth daily with dinner. LORATADINE (CLARITIN ORAL) Take by mouth. oxyCODONE IR (ROXICODONE) 5 mg immediate release tablet Take 25 mg by mouth twice daily. ALBUTEROL INHALATION Inhale as instructed as needed. IRON PS CMPLX/VIT B12/FA (FERREX 150 FORTE ORAL) Take 1 tabl et by mouth once daily. pantoprazole DR (PROTONIX) [...] acetaminophen/dp-hydram hcl(TYLENOL PM 25 MG-500 MG/15 ML OR AL SOLN) Take as needed No current facility-administered [...] data was entered by the nurse and revi ewed by me There are no exam notes on file for this visit. PHYSICAL EXAMINATION: General: The patient is 67 year old female, well nourished, well hydrated in no acute distress. The patient is oriented to time, place , and person. VITALS: Blood pressure 144/66, pulse 76, weight 102 kg (224 lb 12.8 oz). Body mass index is 42.48 kg/m?. HEENT: Normal cephalic, ataumatic, pupils are equally round, sclera are anicteric, mucous membranes are moist, oropharynx is clear. Neck has no masses, asymmetry or lymphadenopathy. Thyroid is unremarkabl e. Respiratory: Clear to auscultation and percussion. Normal re spiratory excursion and pattern. Cardiac: Examination is regular rate and rhythm. Abdominal exam: Soft, nontender, with no palpable masses. No hepatosplenomegaly. No palpable hernias. Rectal exam: exam deferred Extremities: no clubbing, cyanosis or edema. No adenopathy. Other: LABORATORY VALUES: As Noted RADIOLOGIC STUDIES: As Noted Assessment IMPRESSION:epigastric pain PLAN: I plan to perform upper endoscopy. We discussed the ri sks and benefits of the planned endoscopy. I have informed the patie nt that complications can occur including failure to complete the en doscopy and perforation. The patient had the opportunity to ask question s concerning the planned endoscopy. My staff has also explained the proce dure to the patient in understandable terms and has given the patient pr inted material concerning the procedure. The patient freely consents to chaim stalin. Diagnoses: (K21.9) Gastroesophageal reflux disease, esophagi tis presence not specified (primary encounter diagnosis) A letter was sent to Dr. Italo Eng DO indicating t he above finding for this patient. Return to Clinic: The patient is instructed to follow-up wit h me after the testing has been completed. Dandre Segura MD hosp on 2017-09-01 HOSP Patient:Jacquie Aldana I Normal 018 [facility] MRN: Noel ([id number]) Height:5' 1(1.549 m) Weight:224 lb 13.9 oz (102 kg) Outpatient Medications as of 09/12/17: losartan (COZAAR) 100 mg tablet aspirin 81 mg chewable tablet ALBUTEROL INHALATION hydroCHLOROthiazide (HYDRODIURIL, ESIDRIX) 25 mg tablet metoprolol tartrate, short acting, (LOPRESSOR) 50 mg tablet meloxicam (MOBIC) 15 mg tablet rivaroxaban (XARELTO) 20 mg tablet LORATADINE (CLARITIN ORAL) acetaminophen/dp-hydram hcl(TYLENOL PM 25 MG-500 MG/15 ML OR AL SOLN) Admission/Clinic Administered Medications as of 09/12/17: lactated ringers infusion Problem List: No problem list on file for this patient. Allergies: Seasonal Allergies Date Verified: 09/12/17 Lab Values No results within the last 30 days for the following basenam es: K,HCT Progress Notes ([facility]): Harrison Sanford Surg Coord 09/01/2017 2:35 PM Signed 09-12-2017 [facility] Sanford Surg Coord Progress Notes ([facility]): Dandre Segura MD 09/02/2017 9:55 AM Signed HISTORY AND PHYSICAL Jacquie Aldana 1950 REFERRING PHYSICIAN: Self CHIEF COMPLAINT: Established Patient (Stomach pain) HPI: The patient is a 67 yea r old female referred for endoscopy. Jacquie notes no current colon complaints, bu t I had seen her for diverticulitis in the past when she required a laparoscopic washout. She has had no colon challenges since that time. More recently, Jacquie notes epigastric pain for approximate ly one month. She notes the pain is significantly improved after she eats food , specifically yogurt . Jacquie has undergone prior endoscopy, She had colonoscopy per formed by Dr. Yanez 1-12 years previousl y which demonstrate diverticulosis. She has not had [...] tablet Take 100 mg by mouth once da chelsie. aspirin 81 mg chewable tablet Take 81 mg by mouth once daily . hydroCHLOROthiazide (HYDRODI URIL, ESIDRIX) 25 mg tablet Take 25 mg by mouth once daily. metoprolol tartrate, short a cting, (LOPRESSOR) 50 mg tablet Take 50 mg by mouth twice daily. meloxicam (MOBIC) 15 mg tablet Take 15 mg by mouth once moses y. rivaroxaban (XARELTO) 20 mg tablet Take 20 mg by mouth daily with dinner. LORATADINE (CLARITIN ORAL) Take by mouth. oxyCODONE IR (ROXICODONE) 5 mg immediate release tablet Ta ke 25 mg by mouth twice daily. ALBUTEROL [...] daily. naproxen (NAPROSYN) 250 mg tablet Take 2 50 mg by mouth twice daily with meals. [...] data was entered by the nurse and revi ewed by me There are no exam notes on file for this visit. PHYSICAL EXAMINATION: General: The patient is 67 y ear old female, well nourished, well hydrated in [...] Respiratory: Clear to auscultation and percussion. Normal re spiratory excursion and pattern. Cardiac: Examination is regular [...] The patient had the opportunity to ask q uestions concerning the planned endoscopy. My staff has also explained the proce dure to the patient in understandable terms and has given the patient printed ma terial concerning the procedure. The patient freely consents to surgery. Diagnoses: (K21.9) Gastroesophageal reflux disease, es ophagitis presence not specified (primary encounter diagnosis) A letter was sent to Dr. Kaleigh Eng DO indicating the above finding for this patient. Return to Clinic: The patient is instructed to follow-up wit h me after the testing has been completed. MD kimberly Jansen on 2017-09-01 CNOV Office Visit (GENSWS) Normal 09-02-[address] [place] [address] Clinic KATYAJACQUIE Yeimy ([id number]) [address] [facility] Date Time Provider Department ([id number]) 09/01/17 1:20 PM DANDRE SEGURA During your visit today, we recorded the following informati on about you: Pulse Blood pressure Weight 76/minute 144/66 102 kg Dandre Segura MD 09/02/2017 9:55 AM Signed HISTORY AND PHYSICAL Jacquie Aldana 1950 REFERRING PHYSICIAN: Self CHIEF COMPLAINT: Established Patient (Stomach pain) HPI: The patient is a 67 year old female referred for endoscopy. Jacquie notes no current colon complaints, but I had s een her for diverticulitis in the past when she required a laparoscopic washout. She has had no col on challenges since that time. More recently, Jacquie notes epigastric pain for approximate ly one month. She notes the pain is significantly improved after she eats food , specifically yogurt . Jacquie has undergone prior endoscopy, She had colonoscopy per formed by Dr. Yanez 1-1/2 years previously which demonstrate diverticul osis. She has not had upper endoscopy. The [...] 01/17/2017 Laparoscopy, peritoneal wash out and culture [facility] - TOTAL HIP REPLACEMENT Right 09/2015 revision 10/16 Current Outpatient Prescriptions: losartan (COZAAR) 100 mg tablet Take 100 mg by mouth once da chelsie. aspirin 81 mg chewable tablet Take 81 mg by mouth once daily . hydroCHLOROthiazide (HYDRODIURIL, ESIDRIX) 25 mg tablet Ta ke 25 mg by mouth once daily. metoprolol tartrate, short a cting, (LOPRESSOR) 50 mg tablet Take 50 mg by mouth twice daily. meloxicam (MOBIC) 15 mg tablet Take 15 mg by mouth once moses y. rivaroxaban (XARELTO) 20 mg tablet Take 20 mg by mouth daily with dinner. LORATADINE (CLARITIN ORAL) Take by mouth. oxyCODONE IR (ROXICODONE) 5 mg immediate release tablet Ta ke 25 mg by mouth twice daily. ALBUTEROL [...] daily. naproxen (NAPROSYN) 250 mg tablet Take 2 50 mg by mouth twice daily with meals. [...] data was entered by the nurse and revi ewed by me There are no exam notes on file for this visit. PHYSICAL EXAMINATION: General: The patient is 67 year old female, well juan manuel shed, well hydrated in no acute distress. The patient is oriented to time, place, a nd person. VITALS: Blood pressure 144/66, pulse 76, weight 102 kg (224 lb 12.8 oz). Body mass index is 42.48 kg/m?. HEENT: Normal cephalic, ataumatic, pupils are equally round, sclera are anicteric, mucous membranes are moist, oropharynx is clear. Neck has no masses, asymmetry or lymphadenopathy. Thyroid is unremarkabl e. Respiratory: Clear to auscultation and percussion. Normal re spiratory excursion and pattern. Cardiac: Examination is regular [...] has also explained the procedure to the corbin diaz in understandable terms and has given the patient printed material concerning the pr ocedure. The patient freely consents to surgery. Diagnoses: (K21.9) Gastroesophageal reflux disease, es ophagitis presence not specified (primary encounter diagnosis) A letter was sent to DO gayatri Harman the above finding for this patient. Return to Clinic: The patient is instructed to follow-up wit h me after the testing has been completed. 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, s/p 1 st rev.,6wks iv atb on 2016-09-09 Dietary management yes Invalid 09-09-2016 - [facility] education, Interpretation Code 7 Infectious guidance, and Diseas e (24949) counseling (procedure) Documentation of Done Invalid 09-09-2016 - current medications Interpretation Code 09-09-2016 Infectious (procedure) Disease (21087) Fall risk No Invalid 09-09-2016 - [facility] assessment Interpretation Code 7 Infectious Disease (4 4691) Protein mass conc Done 09-09-2016 - [facility]athi 09-09-2016 Infectiou s Disease (4 4691) Tobacco smoking Never Invalid 09-09-2016 - [facility] status NHIS Interpretation Code 09-10-19 17 Infectious Disease (4 4691) Tobacco smoking Former 09-09-2016 - [place] status DCIS smoker 09-09-2016 Infecti ous Disease (4 4691) Tobacco use CPHS Former Invalid 09-09-2016 - [facility] smoker Interpretation Code 09-09-2016 Infectious Disease (4 4691) replaced document: (p) cbc w/diff, autom ated on 2016-09-08 Absolute Neut 4.6 X10 2.0-7.7 Invalid 09-08-2016 - [facility] 3/UL Interpretation 09-08-2016 Infe ctious Code Disease (80217) Basophils/100 0.5 0-1 % 09-08-2016 - [facility] WBC (Bld) 09-08-2016 Infectiou s Disease (59248) Basophils/100 0.5 0-1 % Invalid 09-08-2016 - [facility] WBC Auto (Bld) Interpretation 09-08-2016 Infectious Code Disease (90805) Eosinophils/100 4.3 0-5 % Invalid 09-08-2016 - [place] leukocytes Interpretation 09-08-2016 Inf ectious Code Disease (26121) Eosinophils/100 4.3 0-5 % 09-08-2016 - [facility] WBC (Bld) 09-08-2016 Infectiou s Disease (58145) Erythrocyte 13.6 11.6-14.6 % Invalid 09-08-2016 - [facility] distribution Interpretation 09-08-2016 I nfectious width Auto Ratio Code Dis ease (RBC) (53175) Erythrocyte 13.6 11.6-14.6 % 09-08-2016 - [place] [facility] distribution 09-08-2016 Infect ious width Ratio Disease (RBC) (87904) Erythrocyte 43.6 35.1-43.9 fL 09-08-2016 - [place] distribution 09-08-2016 Infect ious width Ratio Disease (RBC) (90551) Erythrocytes 4.26 4.2-5.4 10*6/u Invalid 09-08-[address] [facility] (RBC) L Interpretation 09-08-2016 Infe ctious Code Disease (65431) Hematocrit (HCT) 38.2 37-47 % Invalid 09-08-2016 - [facility] Interpretation 09-08-2016 Infe ctious Code Disease (86797) Hematocrit 38.2 37-47 % 09-08-2016 - [facility] Volume Fraction 09-08-2016 Inf ectious (Bld) Disease (42384) Hemoglobin mass 12.6 12.0-15.0 g/dL Invalid 09-08-2016 - [place] conc (Bld) Interpretation 09-08-2016 Inf ectious Code Disease (10643) Immature 0.300 0.0-0.9 % 09-08-2016 - [facility] granulocytes 09-08-2016 Infect ious #/vol (Bld) Disease (82598) immature 0.300 0.0-0.9 % Invalid 09-08-2016 - [facility] granulocytes, Interpretation 09-08-2016 Infectious percentage of Code Diseas e total cells, (14982) blood Immature 0.300 0.0-0.9 % Invalid 09-08-2016 - [facility] granulocytes/100 Interpretation 09-09-19 17 Infectious WBC (Bld) Code Disease (98861) Lymphocytes 1.87 X10 0.83-4.51 Invalid 09-08-2016 - [place] [facility] 3/UL Interpretation 09-08-2016 Infe ctious Code Disease (98986) Lymphocytes 1.87 X10 0.83-4.51 09-08-2016 - [place] [facility] #/vol (Bld) 3/UL 09-08-2016 Infecti ous Disease (56096) Lymphocytes/100 25.3 19-41 % Invalid 09-08-2016 - [place] leukocytes Interpretation 09-08-2016 Inf ectious Code Disease (90352) Lymphocytes/100 25.3 19-41 % 09-08-2016 - [place] WBC (Bld) 09-08-2016 Infectiou s Disease (30413) MCH 29.6 27.0-32.0 pg Invalid 09-08-2016 - [facility] Interpretation 09-08-2016 Infe ctious Code Disease (75797) MCH Entitic mass 29.6 27.0-32.0 pg 09-08-2016 - [facility]athi (RBC) 09-08-2016 Infectiou s Disease (59961) MCHC mass conc 33.0 32-36 09-08-2016 - [facility] (RBC) G/GL 09-08-2016 Infectiou s Disease (81693) MCHC mass conc 33.0 32-36 Invalid 09-08-2016 - [facility] (RBC) G/GL Interpretation 09-08-2016 Infe ctious Code Disease (88843) MCV 89.7 81-99 fL Invalid 09-08-2016 - [facility] Interpretation 09-08-2016 Infe ctious Code Disease (53650) MCV Entitic 89.7 81-99 fL 09-08-2016 - [place] [facility] volume (RBC) 09-08-2016 Infect ious Disease (92924) Monocytes/100 7.3 0-10 % Invalid 09-08-2016 - [facility] leukocytes Interpretation 09-08-2016 Inf ectious Code Disease (05280) Monocytes/100 7.3 0-10 % 09-08-2016 - [facility] WBC (Bld) 09-08-2016 Infectiou s Disease (50394) neutrophil 4.6 X10 2.0-7.7 Invalid 09-08-2016 - [facility] count, blood 3/UL Interpretation 09-08-2016 I nfectious Code Disease (81671) Neutrophils 4.6 X10 2.0-7.7 09-08-2016 - [place] [facility] #/vol (Bld) 3/UL 09-08-2016 Infecti ous Disease (53708) Neutrophils/100 62.3 47-70 % 09-08-2016 - [place] [facility] WBC (Bld) 09-08-2016 Infectiou s Disease (04193) Neutrophils/100 62.3 47-70 % Invalid 09-08-2016 - [place] WBC Auto (Bld) Interpretation 09-08-2016 Infectious Code Disease (86153) Platelet mean 10.8 6.2-12.0 fL 09-08-2016 - [facility] volume Entitic 09-08-2016 Infe ctious volume (Bld) Disease (74716) Platelets 240 150-450 10*3/m Invalid 09-08-2016 - [facility] m3 Interpretation 09-08-2016 Infe ctious Code Disease (26870) Platelets #/vol 240 150-450 10*3/m 09-08-2016 - [place] (Bld) m3 09-08-2016 Infectiou s Disease (96359) PMV by 10.8 6.2-12.0 fL Invalid 09-08-2016 - [facility] Rodolfo-Bill Interpretation 09-08-2016 Inf ectious Code Disease (53125) RBC #/vol (Bld) 4.26 4.2-5.4 10*6/u 09-08-2016 - [place] L 09-08-2016 Infectiou s Disease (72782) RDW SD 43.6 35.1-43.9 fL Invalid 09-08-2016 - [facility] Interpretation 09-08-2016 Infe ctious Code Disease (47024) red blood cell 43.6 35.1-43.9 fL Invalid 09-08-2016 - [facility] distribution Interpretation 09-08-2016 I nfectious width, size Code Disease density (24228) WBC #/vol (Bld) 7.4 4.4-11.0 10*9/L 09-08-2016 - [facility] 09-08-2016 Infectiou s Disease (56501) WBC (Leukocytes) 7.4 4.4-11.0 10*9/L Invalid 09-08-2016 - [facility] Interpretation 09-08-2016 Infe ctious Code Disease (14700) lab report: erythrocyte sed rate on 2016-09-08 Erythrocyte 13 0-30 mm/h Invalid 09-08-2016 - [facility] [facility] sedimentation rate Interpretation Code 0 09-08-2016 Infectious Disease (4 9243) lab report: crp on 2016-09-08 C reactive < 2.90 0.0-3.0 mg/L Invalid 09-08-2016 - [place] [facility] protein (CRP) mg/L Interpretation Code 2016 Infectious Disease (4 4691) office visit: acute visit - elevated d-d katelin on 2016-05-04 Documentation of Done Invalid 05-04-2016 - [facility]athi current medications Interpretation Code 05-04-2016 Infectious (procedure) Disease (43865) Tobacco smoking Never Invalid 05-04-2016 - [facility] status NHIS Interpretation Code 05-04-19 17 Infectious Disease (4 4691) Tobacco use CPHS Former Invalid 05-04-2016 - [facility] smoker Interpretation Code 05-04-2016 Infectious Disease (4 4691) lab report: d-dimer quantitative (dvt/pe ) on 2016-05-03 D-dimer 0.86 FEU/UG/M 0.27-0.49 Critically high 05-03-2016 - [facility] quantitative 05-03-2016 Infect ious mcg/mL Disease (61041) D-DIMER QUANT 0.86 FEU/UG/M 0.27-0.49 Critically high 2016 - Swathi 05-03-2016 Infectiou s Disease (68914) lab report: basic metabolic profile (bmp ) on 2016-05-03 Anion gap 9 5-15 mmol/L Invalid 05-03-2016 - [facility] Interpretation 05-03-2016 Infe ctious Code Disease (44269) Anion gap molar 9 5-15 mmol/L 05-03-2016 - [place] conc 05-03-2016 Infectiou s Disease (96896) BUN/Creatinine 17.8 10-20 Invalid 05-03-2016 - [facility] Ratio RATIO Interpretation 05-03-2016 Infe ctious Code Disease (60369) Calcium 9.2 8.5-10.1 mg/dL Invalid 05-03-2016 - [facility] Interpretation 05-03-2016 Infe ctious Code Disease (83525) Chloride 106 98-107 mmol/L Invalid 05-03-2016 - [facility] Interpretation 05-03-2016 Infe ctious Code Disease (76080) CO2 29.0 21.0-32. mmol/L Invalid 05-03-2016 - [facility] 0 Interpretation 05-03-2016 Infe ctious Code Disease (04074) CO2 ppres 29.0 21.0-32. mmol/L 05-03-2016 - [facility]athi (BldV) 0 05-03-2016 Infectiou s Disease (42811) Creatinine 1.18 0.55-1.0 mg/dL High 05-03-2016 - [facility] 2 05-03-2016 Infectiou s Disease (27613) eGFR 49 >60 mL/min Low 05-03-2016 - [facility] (non-black) 05-03-2016 Infecti ous Disease (69084) eGFR 59 >60 mL/min Low 05-03-2016 - [facility] (non-black) 05-03-2016 Infecti ous Disease (91031) EST GFR - AA 59 >60 mL/min Low 05-03-[address] [facility] 05-03-2016 Infectiou s Disease (37804) Glucose 91 70-110 mg/dL Invalid 05-03-2016 - [facility] Interpretation 05-03-2016 Infe ctious Code Disease (77503) Glucose mass 91 70-110 mg/dL Invalid 05-03-[address] [facility] conc Interpretation 05-03-2016 Infe ctious Code Disease (65085) Potassium molar 3.7 3.5-5.1 mmol/L Invalid 05-03-2016 - [place] conc Interpretation 05-03-2016 Infe ctious Code Disease (81922) Sodium 144 136-145 mmol/L Invalid 05-03-2016 - [facility] Interpretation 05-03-2016 Infe ctious Code Disease (90871) Urea nitrogen 21 7-18 mg/dL High 05-03-2016 - [facility] 05-03-2016 Infectiou s Disease (40777) lab report: uric acid on 2016-03-22 Urate 5.7 2.6-6.0 mg/dL Invalid Interpretation 016 - [facility] Infectious Code 03-22-2016 Disease ( 26799) lab report: ldh on 2016-03-22 lactate dehydrogenase - 309 84-246 U/L High 2015 - [facility] Infectious serum 03-22-2016 Disease ( 32334) LDH 309 84-246 U/L High 03-22-2016 - [facility] Infectious 03-22-2016 Disease ( 31201) lab report: comprehensive metabolic prof il on 2016-03-22 Alanine 27 12-78 U/L Invalid 03-22-2016 - [facility] aminotransferase Interpretation 03-22-20 16 Infectious (ALT) Code Disease (12148) Albumin 4.0 3.4-5.0 g/dL Invalid 03-22-2016 - [facility] Interpretation 03-22-2016 Infe ctious Code Disease (90099) Albumin/Globulin 1.1 0.9-2.4 {ratio Invalid 03-22-2016 - [facility] Ratio RATIO } Interpretation 03-22-2016 Infe ctious Code Disease (84772) Alkaline phosphatase 82 45-117 U/L Invalid - [facility] (ALP) Interpretation 03-22-2016 Infe ctious Code Disease (76111) ALP enzyme act/vol 82 45-117 U/L 03-22-2016 - [facility] (Bld) 03-22-2016 Infectiou s Disease (37072) Aspartate 15 15-37 U/L Invalid 03-22-2016 - aminotransferase Interpretation 03-22-20 16 Infectious (AST) Code Disease (45372) Bilirubin (total) 0.60 0.20-1.0 mg/dL Invalid 03-22-2016 - [facility] 0 Interpretation 03-22-2016 Infe ctious Code Disease (16421) Globulin 3.5 2.3-3.5 g/dL Invalid 03-22-2016 - [facility] Interpretation 03-22-2016 Infe ctious Code Disease (01724) Globulin mass conc 3.5 2.3-3.5 g/dL 03-22-2016 - [facility] (S) 03-22-2016 Infectiou s Disease (09269) Protein 7.5 6.4-8.2 g/dL Invalid 03-22-2016 - [facility] Interpretation 03-22-2016 Infe ctious Code Disease (77834) lab report: factor ii, dna analysis on 2016-02-02 COMMENT Comment . Invalid 02-02-2016 - [facility] Interpretation Code 02-02-2016 Infectious Disease (4 4191) FACTOR II,DNA Comment . High 02-02-2016 - [facility] 02-02-2016 Infectiou s Disease (4 0191) GE use only - for Comment . Invalid 02-02-2016 - [facility] [employer] import Interpretation Code Infectious when terms are not D isease (74933) otherwise specified Protein mass conc Comment . High 02-02-2016 - [facility] 02-02-2016 Infectiou s Disease (4 4691) prothrombin Comment . High 02-02-2016 - [facility] mutation, DNA 02-02-2016 Infec tious testing by PCR, Dise ase (35447) whole blood lab report: antithrombin 3 function on 2016-02-02 antithrombin, 101 75-135 % Invalid 02-02-2016 - [facility] functional Interpretation Code 6 Infectious Disease (4 4691) AT3 FUNCTION 101 75-135 % Invalid 02-02-2016 [facility] Interpretation Code 02-02-2016 Infectious Disease (4 4691) replaced document: (p) protein s defic. profile on 2015-12-22 Protein mass conc 107 60-145 % 12-22-2015 - Swathi 12-22-2015 Infectiou s Disease (4 4691) PROTEIN S, FUNC 107 60-145 % Invalid 12-22-2015 - [place] [facility] Interpretation Code 12-22-2015 Infectious Disease (4 4691) Protein S, 107 60-145 % Invalid 12-22-2015 - [facility] Functional Interpretation Code 6 Infectious Disease (4 4691) replaced document: (p) protein c defic. profile on 2015-12-22 PROTEIN C 84 70-140 % Invalid Interpretation 016 - [facility] Infectious Code 12-22-2015 Disease ( 47148) protein C 84 70-140 % Invalid Interpretation 016 - [facility] Infectious antigen, plasma Code 12-22-2015 Dis ease (79842) Protein mass 84 70-140 % 12-22-2015 [facility] Infectious conc 12-22-2015 Disease ( 97940) replaced document: (p) lupus anticoagula nt comp on 2015-12-22 aPTT 32.4 0.0-50.0 s Invalid 12-22-2015 - [facility] Interpretation 12-22-2015 Infe ctious Code Disease (81039) coagulation Comment: . Invalid 12-22-2015 - [facility] comments Interpretation 12-22-2015 Infe ctious Code Disease (80628) DILUTE PT (dPT) 40.1 0.0-55.0 s Invalid 12-22-2015 - [place] Interpretation 12-22-2015 Infe ctious Code Disease (49021) dilute Elmer 36.6 0.0-55.1 s Invalid 12-22-2015 - [facility] Viper venom time Interpretation 12-22-19 16 Infectious Code Disease (69162) dPT Conf. Ratio 1.10 0.00-1.40 Invalid 12-22-2015 - [place] Ratio Interpretation 12-22-2015 Infe ctious Code Disease (09547) DRVVT 36.6 0.0-55.1 s Invalid 12-22-2015 - [facility]athi Interpretation 12-22-2015 Infe ctious Code Disease (04124) dRVVT confirm 1.10 0.00-1.40 Invalid 12-22-2015 - [facility] Ratio Interpretation 12-22-2015 Infe ctious Code Disease (75082) Interpretation Comment: . Invalid 12-22-2015 - [facility] Interpretation 12-22-2015 Infe ctious Code Disease (22509) Prothrombin time, 40.1 0.0-55.0 s Invalid 12-22-2015 - Swathi outside laboratory Interpretation 2015 Infectious Code Disease (77984) PTT-LA 32.4 0.0-50.0 s 12-22-2015 - [facility] 12-22-2015 Infectiou s Disease (08866) THROMBIN TIME 16.2 0.0-20.0 s Invalid 12-22-2015 - [facility] Interpretation 12-22-2015 Infe ctious Code Disease (00745) replaced document: (p) fact v leiden mut ation on 2015-12-22 FACTOR V LEIDEN Comment . High 12-22-2015 - 0 12-22-2015 [facility]athi Infectious Disease (4 4691) factor V Leiden, DNA Comment . High 6 - 12-22-2015 [facility] Infectious testing by PCR, whole Disease (19964) blood office visit: new patient on 2015-12-22 Colonoscopy Normal Invalid 12-22-2015 - [place] [facility] (procedure) Interpretation Code 12-22-19 16 Infectious Disease (4 4691) Protein mass conc Normal 12-22-2015 - [facility] 12-22-2015 Infectiou s Disease (4 4691) clinical lists update: preload on 2015-10-15 Left ventricular 65 % Invalid Interpretation 10-15-2015 - [facility] Infectious Ejection fraction Code 10-15-2015 D isease (20259) clinical lists update: preload on 2015-09-29 Thyroid 1.76 u[iU]/mL Invalid 09-29-2015 - [facility] stimulating Interpretation Code 09-29-19 16 Infectious hormone (TSH) Diseas e (49371) office visit: new patient on 2013-12-02 General categories Normal Invalid 12-02-2013 - [facility] [interpretation] of Interpretation Code 12-02-2013 Infectious Cervical or vaginal Disease (88461) smear or scraping by Cyto stain General categories Normal 12-02-2013 - [facility] Cyto stain Interp 12-02-2013 I nfectious (Cervical or vaginal Disease (42662) smear or scraping) office visit: new patient on 2013-11-01 Breast Normal Invalid 11-01-2013 - [facility] Mammogram Bilateral Interpretation Code 11-01-2013 Infectious screening Disease (4 4691) MG Breast Normal 11-01-2013 - Swathi screening Bilateral 11-01-2013 Infectiou s Disease (4 4691) Vital Signs Vital Sign Description Value / Unit Date Location The following section is limited to 5 en tries per type and includes entries from the following time range: [id number] - 9. BMI (Body Mass Index) 47.01 kg/m2 09-09-2016 - 09-09-2016 [facility] Infectious Disease (32454) BMI (Body Mass Index) 47.04 kg/m2 05-04-2016 - 05-04-2016 [facility] Infectious Disease (54975) Body Temperature 97.6 [degF] 05-04-2016 - 05-04-2016 [facility] Infectious Disease (99294) Body Temperature 97.3 [degF] 03-02-2016 - 03-02-2016 [facility] Infectious Disease (65570) BP Diastolic 80 mm[Hg] 09-09-2016 - 09-09-2016 [facility] Infectious Disease (74349) BP Diastolic 77 mm[Hg] 05-04-2016 - 05-04-2016 [facility] Infectious Disease (94606) BP Systolic 151 mm[Hg] 09-09-2016 - 09-09-2016 [facility] Infectious Disease (39148) BP Systolic 143 mm[Hg] 05-04-2016 - 05-04-2016 [facility] Infectious Disease (34629) BSA (Body Surface Area) 2.08 m2 05-04-2016 - 05-04-2016 [facility] Infectious Disease (78323) Height 154.94 cm 05-04-2016 - 05-04-2016 [facility] Infectious Disease (05157) Height 154.94 cm 12-08-2015 - 12-08-2015 [facility] Infectious Disease (79200) Pulse (Heart Rate) 76 /min 09-09-2016 - 09-09-2016 [place] Infect[facility] Disease (29707) Pulse (Heart Rate) 86 /min 05-04-2016 - 05-04-2016 [place] [facility] Infect[facility] Disease (04006) Pulse Oximetry 98 % 09-09-2016 - 09-09-2016 [facility] Infectious Disease (98323) Pulse Oximetry 97 % 05-04-2016 - 05-04-2016 [facility] Infectious Disease (21617) Respiratory Rate 16 /min 05-04-2016 - 05-04-2016 [facility] Infectious Disease (12037) Weight 112.86 kg 09-09-2016 - 09-09-2016 [facility] Infectious Disease (16446) Weight 113.18 kg 05-04-2016 - 05-04-2016 [facility] Infectious Disease (86543) Weight 112.95 kg 05-04-2016 - 05-04-2016 [facility] Infectious Disease (89593) Encounters Date Type Reason Provider Location 10-31-2017 - Patient encounter DANDRE Aguilar [facility] 11-01-2017 procedure [facility] (0000 0) 10-24-2017 - Patient encounter DANDRE Sheikh [facility] 10-24-2017 procedure DANDRE [facility] (36178) [place] ENG 09-19-2017 - Patient encounter DANDRE Sheikh [facility] 09-19-2017 procedure DANDRE Sheikh [facility] (17444) 09-12-2017 - Patient encounter DANDRE Sheikh [facility] 09-12-2017 procedure DANDRE Sheikh [facility] (47098) DANDRE SEGURA 09-01-2017 - Patient encounter DANDRE Sheikh [facility] 09-06-2017 procedure [facility] (0000 0) Procedures Procedure Name Date Provider Location Dietary management 09-09-2016 - [facility] Infec tious education, guidance, and 09-09-2016 Disease (26082) counseling *CBC with Differential 09-06-2016 - Nalini Keyes MD [facility] Infectious 09-09-2016 Disease (22985) C reactive protein 09-06-2016 - Nalini J Signs MD [facility] Inf ectious [Mass/volume] in Serum or 09-09-2016 Diseas e (98407) Plasma by High sensitivity method Erythrocyte sedimentation 09-06-2016 - Nalini J Signs MD [facility] Infectious rate 09-09-2016 Disease (59330) *CBC with Differential 09-06-2016 - Nalini J Signs MD [place] Infectious 09-09-2016 Disease (94207) C reactive protein (hsCRP) 09-06-2016 - Nalini J Signs MD [facility] Infectious 09-09-2016 Disease (30220) Erythrocyte sedimentation 09-06-2016 - Nalini J Signs MD [facility] Infectious rate 09-09-2016 Disease (81694) *BMP 05-03-2016 - [place] [facility] Guadalupe Stern [facility] Infectio us 05-03-2016 Disease (14654) *CBC w/Diff - oncology ONLY 05-03-2016 - [place] [facility] Guadalupe [facility] Infectious 05-03-2016 Disease (83299) Fibrin D-dimer FEU 05-03-2016 - [place] [facility] Guadalupe [facility] Infec tious [Mass/volume] in Platelet 05-03-2016 Diseas e (17458) poor plasma *BMP 05-03-2016 - [place] Guadalupe [facility] Infectio us 05-03-2016 Disease (89520) *CBC w/Diff - oncology ONLY 05-03-2016 - [place] [facility] Gu[facility] Infectious 05-03-2016 Disease (36032) Fibrin D-dimer FEU 05-03-2016 - [place] Gu[facility]upe [facility] Infec tious 05-03-2016 Disease (05681) *CBC w/Diff - oncology ONLY 03-22-2016 - [place] Guadalupe [facility] Infectious 03-22-2016 Disease (84319) *CMP Complete Metabolic 03-22-2016 - [place] oJse Guadalupe Stern [facility] Infectious Panel 03-22-2016 Disease (59317) Lactate dehydrogenase 03-22-2016 - [place] [facility] Gu[facility]upe [facility] In fectious [Enzymatic activity/volume] 03-22-2016 Dise ase (52231) in Serum or Plasma Urate [Mass/volume] in 03-22-2016 - Chung Stern [facility] I nfectious Serum or Plasma 03-22-2016 Disease (74370) *CBC w/Diff - oncology ONLY 03-22-2016 - Chung Stern [facility] Infectious 03-22-2016 Disease (47426) *CMP Complete Metabolic 03-22-2016 - [place] Guadalupe Stern [facility] Infectious Panel 03-22-2016 Disease (69090) Lactate dehydrogenase (LDH) 03-22-2016 - Chung Stern [facility] Infectious 03-22-2016 Disease (95677) Urate 03-22-2016 - [place] Guadalupe Stern [facility] Infectio us 03-22-2016 Disease (18626) *CBC with Differential 12-08-2015 - Nalini J Signs MD [place] Infectious 12-15-2015 Disease (06167) *MISC3 - Miscellaneous Lab 12-08-2015 - Nalini J Signs MD [facility] Infectious Test #3 12-15-2015 Disease (60179) C reactive protein 12-08-2015 - Nalini J Signs MD [place] Inf ectious [Mass/volume] in Serum or 12-15-2015 Diseas e (99421) Plasma by High sensitivity method Erythrocyte sedimentation 12-08-2015 - Nalini Oseguera Signs MD [facility] Infectious rate 12-15-2015 Disease (00115) *CBC with Differential 12-08-2015 - Nalini J Signs MD [place] Infectious 12-15-2015 Disease (08338) *MISC3 - Miscellaneous Lab 12-08-2015 - Nalini J Signs MD [facility] Infectious Test #3 12-15-2015 Disease (29372) C reactive protein (hsCRP) 12-08-2015 - Nalini J Signs MD [facility] Infectious 12-15-2015 Disease (79979) Erythrocyte sedimentation 12-08-2015 - Nalini J Signs MD [facility] Infectious rate 12-15-2015 Disease (08378) Plan of Treatment Plan Description Date Location *CBC w/Diff - oncology *CBC w/Diff - oncology 03-01-2017 - [facility] Infectious ONLY ONLY 03-02-2016 Disease (39298) *CMP Complete Metabolic *CMP Complete Metabolic 03-01-2017 - [facility] Infectious Panel Panel 03-02-2016 Disease (26102) *LDH -LDH (Lactate *LDH -LDH (Lactate 03-01-2017 - [facility] In fectious Dehydrogenase) Dehydrogenase) 03-02-2016 Disease (98145) *Magnesium *Magnesium 03-01-2017 - [facility] Infectio us 03-02-2016 Disease (91155) *Uric Acid Blood *Uric Acid Blood 03-01-2017 - [facility] Infect ious 03-02-2016 Disease (78159) *CBC w/Diff - oncology *CBC w/Diff - oncology 03-01-2017 - [place] [facility] Infectious ONLY ONLY 03-02-2016 Disease (78228) *CMP Complete Metabolic *CMP Complete Metabolic 03-01-2017 - [facility] Infectious Panel Panel 03-02-2016 Disease (76337) *LDH -LDH (Lactate *LDH -LDH (Lactate 03-01-2017 - [facility] In fectious Dehydrogenase) Dehydrogenase) 03-02-2016 Disease (28111) *Magnesium *Magnesium 03-01-2017 - [facility] Infectio 03-02-2016 Disease (37893) *Uric Acid Blood *Uric Acid Blood 03-01-2017 - [facility] Infect ious 03-02-2016 Disease (43354) Appointment Appointment 11-17-2016 - [facility] Infectio 11-17-2016 Disease (29145) Appointment Appointment 09-09-2016 - [facility] Infectio us 09-09-2016 Disease (89540) *CBC with Differential *CBC with Differential 09-06-2016 - [place] [facility] Infectious 09-09-2016 Disease (23732) *CRP - C-Reative Protein *CRP - C-Reative Protein 09-06-2016 - [facility] Infectious 09-09-2016 Disease (59048) *Sedimentation Rate (ESR) *Sedimentation Rate 09-06-2016 - [place] [facility] Infectious (ESR) 09-09-2016 Disease (10912) *CBC with Differential *CBC with Differential 09-06-2016 - [place] [facility] Infectious 09-09-2016 Disease (72299) *CRP - C-Reative Protein *CRP - C-Reative Protein 09-06-2016 - [facility] Infectious 09-09-2016 Disease (05933) *Sedimentation Rate (ESR) *Sedimentation Rate 09-06-2016 - [facility] Infectious (ESR) 09-09-2016 Disease (02315) *BMP *BMP 06-20-2016 - [facility] Infectio us 03-22-2016 Disease (30411) *CBC w/Diff - oncology *CBC w/Diff - oncology 06-20-2016 - [place] [facility] Infectious ONLY ONLY 03-22-2016 Disease (32465) *DDIMQ - Fibrin Degrd *DDIMQ - Fibrin Degrd 06-20-2016 [facility] Infectious Ultrsens Qual/Semiquan Ultrsens Qual/Semiquan 03-22-2016 Di sease (41887) *BMP *BMP 06-20-2016 - [facility] Infectio us 03-22-2016 Disease (66968) *CBC w/Diff - oncology *CBC w/Diff - oncology 06-20-2016 - [facility] Infectious ONLY ONLY 03-22-2016 Disease (85819) *DDIMQ - Fibrin Degrd *DDIMQ - Fibrin Degrd 06-20-2016 [facility] Infectious [employer]sens Qual/Semiquan Ultrsens Qual/Semiquan 03-22-2016 Di sease (20843) *DDIMQ - Fibrin Degrd *DDIMQ - Fibrin Degrd 06-20-2016 - [facility] Infectious Ultrsens Qual/Semiquan Ultrsens Qual/Semiquan 03-22-2016 Di sease (92911) Venous doppler Venous doppler 05-04-2016 - [facility] Infectio us 05-04-2016 Disease (78052) Venous doppler Venous doppler 05-04-2016 - [facility] Infectio us 05-04-2016 Disease (19986) *BMP *BMP 05-03-2016 - [facility] Infectio us 05-03-2016 Disease (32055) *CBC w/Diff - oncology *CBC w/Diff - oncology 05-03-2016 - [facility] Infectious ONLY ONLY 05-03-2016 Disease (54777) *DDIMQ - Fibrin Degrd *DDIMQ - Fibrin Degrd 05-03-2016 [facility] Infectious Ultrsens Qual/Semiquan Ultrsens Qual/Semiquan 05-03-2016 Di sease (24290) *BMP *BMP 05-03-2016 - [facility] Infectio us 05-03-2016 Disease (80606) *CBC w/Diff - oncology *CBC w/Diff - oncology 05-03-2016 - [facility] Infect[facility] ONLY ONLY 05-03-2016 Disease ([id number]) *DDIMQ - Fibrin Degrd *DDIMQ - Fibrin Degrd 05-03-2016 - [facility] Qual/[facility]sens Qual/[facility] 05-03-2016 Di sease ([id number]) *DDIMQ - Fibrin Degrd *DDIMQ - Fibrin Degrd 05-03-2016 - [facility]sens Qual/[facility] 05-03-2016 Di sease ([id number]) *CBC w/Diff - oncology *CBC w/Diff - oncology 03-22-2016 - [facility] Infectious ONLY ONLY 03-22-2016 Disease ([id number]) *CMP Complete Metabolic *CMP Complete Metabolic 03-22-2016 - Infectious Panel Panel 03-22-2016 Disease ([id number]) *LDH -LDH (Lactate *LDH -LDH (Lactate 03-22-2016 - In fectious Dehydrogenase) Dehydrogenase) 03-22-2016 Disease ([id number]) *Uric Acid Blood *Uric Acid Blood 03-22-2016 - Infect ious 03-22-2016 Disease ([id number]) *CBC w/Diff - oncology *CBC w/Diff - oncology 03-22-2016 - [facility] Infect[facility] ONLY ONLY 03-22-2016 Disease ([id number]) *CMP Complete Metabolic *CMP Complete Metabolic 03-22-2016 - Infectious Panel Panel 03-22-2016 Disease ([id number]) *LDH -LDH (Lactate *LDH -LDH (Lactate 03-22-2016 - In fectious Dehydrogenase) Dehydrogenase) 03-22-2016 Disease ([id number]) *Uric Acid Blood *Uric Acid Blood 03-22-2016 - Infect ious 03-22-2016 Disease ([id number]) Oncology Referral Oncology Referral 01-04-2016 - [place] Infe ctious Chung Stern MD, Chung Stern MD, 01-04-2016 Disease ([id number]) [facility] On[facility], [facility] [address], Oncology, [address] [place], [address] [address], [place], [address] Oncology Referral Oncology Referral 01-04-2016 - [place] Infe ctious Chung Stern MD, Chung Stern MD, 01-04-2016 Disease ([id number]) [facility], [facility] [address], Oncology, [address] [place], [address] [address], [place], [address] *CBC with Differential *CBC with Differential 12-08-2015 - [facility] Infect[facility] 12-15-2015 Disease ([id number]) *MISC3 - Miscellaneous *MISC3 - Miscellaneous 12-08-2015 - [facility] Lab Test #3 Lab Test #3 12-15-2015 Disease ([id number]) *CRP - C-Reative Protein *CRP - C-Reative Protein 12-08-2015 - [place] Infect[facility] 12-15-2015 Disease ([id number]) *Sedimentation Rate (ESR) *Sedimentation Rate 12-08-2015 - [place] [facility] Infect[facility] (ESR) 12-15-2015 Disease ([id number]) *CBC with Differential *CBC with Differential 12-08-2015 - [facility] Infect[facility] 12-15-2015 Disease ([id number]) *MISC3 - Miscellaneous *MISC3 - Miscellaneous 12-08-2015 - [facility] Lab Test #3 Lab Test #3 12-15-2015 Disease ([id number]) *CRP - C-Reative Protein *CRP - C-Reative Protein 12-08-2015 - [place] Infect[facility] 12-15-2015 Disease ([id number]) *Sedimentation Rate (ESR) *Sedimentation Rate 12-08-2015 - [facility] Infect[facility] (ESR) 12-15-2015 Disease ([id number]) Patient education no information [place] [facility] Disease ([id number]) Summary Purpose Family History No Family History Records Found Advance Directives No Advanced Directives Records Found Additional Source Comments FOR RECORDS PERTAINING TO PATIENTS WHO ARE OR HAVE BEEN ENROLLED IN A CHEMICAL DEPENDENCY/SUBSTANCE ABUSE PROGRAM, SOME INFORMATION MAY BE OMITTED. This clinical summary was aggregated from multiple sources. Caution should be exercised in using it in the provision of clinical care. This summary normalizes information from multiple sources, and as a consequence, information in this document may materially changethe coding, format and clinical context of patient data. In addition, data may be omittedin some cases. CLINICAL DECISIONS SHOULD BE BASED ON THE PRIMARY CLINICAL RECORDS. [facility] provides no warranty or guarantee of the accuracy or completeness of information in this document. UNRECOGNIZED CONTENT PROVIDED BELOW FOR UNRECOGNIZED SECTION INFORMATION SOURCE DATE CREATED AUTHOR AUTHOR'S ORGANIZATIO N 06/30/2018 [facility] jeff
== END | disposition home or self-care (01) ==
LOC: LABSPEC 16:57
PROVIDERS: PCP Family Medicine; Visit Provider Urology
DX: R31.21 Asymptomatic microscopic hematuria (principal)
CPT/HCPCS: 88108; 88313

== ENCOUNTER → 2019-11-12 08:34 | Outpatient (CLI) | payer MEDICARE, SELFPAY ==
[2019-09-23 09:57] VITALS: BMI 46.5
[2019-11-12 09:18] LABS: Hematocrit 41.9 % (37-47); Hemoglobin 13.9 g/dL (12.0-15.0); Mean Corp Hgb Conc 33.2 g/dL (32-36); Mean Corpuscular Volume 90.3 fL (81-99); Mean Platelet Vol. 11.3 fl (6.2-12.0); Platelet Count 230 K/mm3 (150-450); RBC Distribution Width CV 12.6 % (11.6-14.6); RBC Distribution Width SD 41.5 fl (35.1-43.9); Red Blood Count 4.64 M/mm3 (4.2-5.4); White Blood Count 6.3 K/mm3 (4.4-11.0)
[2019-11-12 10:11] LABS: AST(SGOT) 22 U/L (15-37); Alanine Aminotransfer ALT/SGPT 23 U/L (13-56); Albumin, Serum 3.8 g/dL (3.2-5.0); Alkaline Phosphatase 78 U/L (45-117); Anion Gap 5 (5-15); BUN 24 mg/dL (7-18); BUN/Creat Ratio 20.5 RATIO (10-20); Calcium,Total 9.2 mg/dL (8.5-10.1); Chloride 101 mmol/L (98-107); Cholesterol 176 mg/dL (200); Creatinine, Serum 1.17 mg/dL (0.55-1.02); EST Glomerular Filtration Rate 49 mL/min (>60); Est Glom Filt Rate - Afr Amer 59 mL/min (>60); Globulin 3.7 g/dL (2.2-4.2); Glucose 107 mg/dL (74-106); High Density Lipoprotein 42 mg/dL; Potassium 4.1 mmol/L (3.5-5.1); Protein, Total 7.5 g/dL (6.4-8.2); Sodium Level 138 mmol/L (136-145); Triglycerides 215 mg/dL; Very Low Density Lipoprotein 43 mg/dL (5-40)
== END ==
PROVIDERS: PCP Family Medicine; Referring Provider Family Medicine; Visit Provider Family Medicine
DX: I10 Essential (primary) hypertension (principal); R53.83 Other fatigue
CPT/HCPCS: 36415; 80053; 80061; 85027

== ENCOUNTER 2021-01-01 14:37 | Emergency (ER) | payer MEDICARE, SELFPAY ==
[2021-01-01 14:38] VITALS: BP 137/80; PULSE 97; RESP 16; TEMP 37.9; O2SAT 96; BMI 52.2
--- NOTE | 2021-01-01 15:56 | RAD_ITS ---
EXAM: XR CHEST, 1 VIEW : 1950 CLINICAL INDICATION: SOB TECHNIQUE: Frontal view of the chest. This report was created using [employer] report generation technology. COMPARISON: 01/13/2017 FINDINGS: LUNGS AND PLEURAL SPACES: Unremarkable. No consolidation or edema. No pneumothorax. No effusion. HEART: Unremarkable. Cardiac silhouette not enlarged. MEDIASTINUM: Central airways and mediastinal contour are unremarkable. BONES/JOINTS: Unremarkable. SOFT TISSUES: Unremarkable. RAD/Chest 1 View (Portable) IMPRESSION: No radiographic evidence of acute cardiopulmonary disease. at 1700 Reported and signed by: Rigoberto Low MD Electronically Signed: Rigoberto Low MD at 16:59 EDT Tel , Service support ,
[2021-01-01 16:51] VITALS: RESP 18; O2SAT 97
--- NOTE | 2021-01-01 16:54 | EDS_ITS ---
HPI History of Present Illness Chief Complaint: Fever Informant: patient Onset/Context/Timing Onset: Weeks (3 to 4 weeks ago) Context: Sudden Onset Timing: Continuous Quality: Upper respiratory, diarrhea, loss of taste and smell Location: Respiratory GI Current Severity: Mild Maximum Severity: Moderate Worsened by: Dyspnea on exertion Relieved by: Nothing Associated Symptoms Associated Symptoms: Covid symptoms Narrative Narrative: Patient is a 70-year-old unvaccinated woman with past medical history of factor V gene mutation with VTE, demand myocardial ischemia, GERD, arthritis and hypertension who presents with viral-like symptoms consistent with Covid that started 3 to 4 weeks ago. She reports increased shortness of breath. She also reports fever. She denies shaking chills. She does report headache. Denies photophobia, neck pain or neck stiffness. Denies ringing in ears, decreased hearing. She does report upper respiratory symptoms. She denies chest pain. She denies urologic symptoms. She denies myalgias or arthralgias. She denies leg pain, swelling discoloration. Prior similar symptoms: No Recent Illness/Hospitalization: [facility] Medical History (Updated 01/01/21 @ 18:[address] 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 History of non-ST elevation myocardial infarction (NSTEMI) Iron deficiency anemia Obstructive sleep apnea Osteoarthritis Stomach ulcer Takotsubo syndrome (07/26/16) Home Medications albuterol sulfate 2 puff INHALATION Q4H PRN PRN 07/23/16 [History Last Taken 2 Days Ago ~12/30/20] fluticasone propionate 2 spray NASAL DAILY PRN 07/23/16 [History Last Taken 12/30/20] hydrochlorothiazide 25 mg PO DAILY 07/23/16 [History Last Taken 12/31/20] loratadine 10 mg PO DAILY 07/23/16 [History Last Taken 12/31/20] losartan 100 mg PO DAILY #30 tab 07/26/16 [Rx Last Taken 12/31/20] metoprolol tartrate 25 mg PO BID #60 tab 07/26/16 [Rx Last Taken 12/31/20] meloxicam 15 mg PO DAILY 01/13/17 [History Last Taken 12/31/20] mirabegron 25 mg PO DAILY 01/29/19 [History Last Taken 12/31/20] cholecalciferol (vitamin D3) 2,000 unit PO DAILY 04/06/20 [History Last Taken 12/31/20] rivaroxaban 10 mg tablet 10 mg PO DAILY #90 tab 09/07/20 [Rx Last Taken 12/31/20] oxybutynin chloride 10 mg tablet,extended release 24 hr 10 mg PO DAILY 10/06/20 [History Last Taken 12/31/20] multivitamin 1 tab PO DAILY 01/01/21 [History Last Taken 12/31/20] omeprazole 40 mg PO DAILY 01/01/21 [History Last Taken 12/31/20] Allergy/AdvReac Type Severity Reaction Status Date / Time epinephrine Allergy Other Verified 10/06/20 13:43 Family History Mother Breast cancer CVA (cerebral vascular accident) Hypertension Father Hypertension Colon cancer Surgical History H/O laparoscopy (~2016) History of hip replacement History of left heart catheterization (07/26/16) History of tubal ligation Social History (Updated 01/01/21 @ 16:[address] Miguel Rahman MD) household members: spouse housing: house Smoking Status: Former smoker alcohol intake: current alcohol intake frequency: holidays/special occasions only substance use type: does not use ROS ROS ED Constitutional Constitutional ED: Reports chills, fever(s) and sweats; Denies subjective or weight loss Eyes Eyes: Denies blurry vision, change in vision or diplopia ENT ENT ED: Reports rhinorrhea and sore throat; Denies ear pain Cardiovascular Cardiovascular: Reports palpitations; Denies chest pain, orthopnea, paroxysmal nocturnal dyspnea or racing heartbeat Respiratory/Chest Respiratory/Chest: Reports cough, dyspnea and dyspnea on exertion; Denies orthopnea, paroxysmal nocturnal dyspnea or sputum Gastrointestinal Gastrointestinal: Reports diarrhea and nausea; Denies abdominal pain, constipation, melena or vomiting Genitourinary Genitourinary ED: Denies dysuria, hematuria or urinary frequency Musculoskeletal Musculoskeletal: Denies arthralgias, back pain, myalgias or neck pain Integumentary Denies rash Neurologic Neurologic: Reports headache(s) and weakness; Denies paresthesias Endocrine Endocrinology: Denies polydipsia, polyphagia or polyuria EXAM Physical Exam Const Vital Signs: 01/01/21 14:38 01/01/21 16:51 Temperature 100.3 F H Temperature Source Temporal Pulse Rate 97 Respiratory Rate 16 18 Respiratory Effort Normal Blood Pressure 137/80 H Blood Pressure Mean 99 Pulse Ox 96 97 Oxygen Delivery Method Room Air Room Air Positive well nourished, well developed and obese General Appearance ED: well developed and NAD Nutritional Appearance: obese HEENT Reports moist mucous membranes HEENT Narrative: Head is atraumatic normocephalic. Ears normal. Nares patent. Uvula midline. No erythema or exudate. Eyes PERRL and EOMs intact bilaterally General Eye ED: Negative for pale conjunctiva or scleral icterus Neck no lymphadenopathy, supple and no JVD Chest Wall inspection of chest normal and palpation of chest normal Resp normal respiratory effort and No clear to auscultation bilaterally Auscultation: rales bilateral base (Right greater than left) Cardio regular rate, regular rhythm, S1 normal heart sound, S2 normal heart sound and no murmurs GI normal to inspection, nondistended, normoactive bowel sounds and non-tender Palpation: soft Back/Spine no CVA tenderness Thoracic Spine / Upper Back: Negative for paraspinal muscle tenderness Extremity normal to inspection General Extremety ED: Negative for edema or tenderness General Extremity: Negative for edema Neuro oriented x3, CN's II-XII intact bilaterally and no sensory deficits noted Sensorium / Orientation: alert Motor Exam: strength 5/5 throughout Psych mental status grossly normal Skin no rashes or lesions noted and no wounds MDM MDM MDM Narrative Medical decision making narrative: Patient clinically has pneumonia consistent with Covid. Appropriate tests were ordered. Will treat with Decadron if she meets criteria. Lab Data Attestation: I reviewed the patient's lab results. Labs: Laboratory Results - last 24 hr 01/01/21 01/01/21 16:50 16:50 WBC 5.8 RBC 4.59 Hgb 13.4 Hct 41.5 MCV 90.4 MCH 29.2 MCHC 32.3 RDW Std Deviation 42.1 RDW Coeff of Drew 12.8 Plt Count 242 MPV 10.6 Immature Gran % (Auto) 0.500 Neut % (Auto) 53.0 Lymph % (Auto) 34.3 [place] % (Auto) 9.5 Eos % (Auto) 2.4 Baso % (Auto) 0.3 Absolute Neuts (auto) 3.1 Absolute Lymphs (auto) 1.99 Nucleated RBC % 0 Sodium 140 Potassium 3.9 Chloride 103 Carbon Dioxide 30.0 Anion Gap 7 BUN 19 H Creatinine 1.27 H Estim Creat Clear Calc 74.84 Est GFR (MDRD) Af Amer 54 L Est GFR (MDRD) Non-Af 44 L BUN/Creatinine Ratio 15.0 Glucose 105 Calcium 9.3 Covid test is positive. Radiography Chest X-Ray - ED: 1 View, Read by ED Physician (Chest x-ray reveals haziness which may be body habitus. Clinically patient has pneumonia. Will treat for Covid pneumonia. She is not hypoxic and was discharged to home.), Heart, Mediastinum and Bony Structures Diagnostic Testing: Radiology Impression Chest X-Ray 01/01/21 15:56 IMPRESSION: No radiographic evidence of acute cardiopulmonary disease. at 1700 Reported and signed by: Rigoberto Low MD Electronically Signed: Rigoberto Low MD at 16:59 EDT Tel , Service support , Discharge Plan Triage Chief Complaint: Fever ED Provider: Miguel Rahman Dx/Rx/DC Orders Clinical Impression: Pneumonia due to 2019 novel coronavirus Instructions: Coronavirus Disease 2019 (COVID-19): Caring for Yourself or Others Prescriptions: No Action oxybutynin chloride 10 mg tablet extended release 24hr 10 mg PO DAILY RF: 0 mirabegron 25 MG tablet extended release 24 hr 25 mg PO DAILY RF: 0 cholecalciferol (vitamin D3) 2,000 UNIT capsule 2,000 unit PO DAILY RF: 0 hydrochlorothiazide 25 MG tablet 25 mg PO DAILY RF: 0 albuterol sulfate 1 PUFF inhaler 2 puff inhalation Q4H PRN PRN (Reason: Sob &/Or Wheezing) RF: 0 fluticasone propionate 1 SPRAY spray,suspension 2 spray NASAL DAILY PRN (Reason: Allergies) RF: 0 loratadine 10 MG tablet 10 mg PO DAILY RF: 0 losartan 100 MG tablet 100 mg PO DAILY Qty: 30 RF: 1 metoprolol tartrate 25 MG tablet 25 mg PO BID Qty: 60 RF: 1 meloxicam 15 MG tablet 15 mg PO DAILY RF: 0 multivitamin Tablet 1 tab PO DAILY RF: 0 omeprazole 40 mg capsule,delayed release(DR/EC) 40 mg PO DAILY RF: 0 rivaroxaban 10 mg tablet 10 mg PO DAILY Qty: 90 RF: 1 Primary Care Provider: Amado Calvo Referrals: Amado Calvo DO [Primary Care Provider] - 10-14 Days if not better Disposition Disposition: Home, Self Care
[2021-01-01 17:05] LABS: Absolute Lymphocyte Count 1.99 X10^3/uL (0.83-4.51); Absolute Neutrophil Count 3.1 X10^3/uL (2.0-7.7); Basophil# 0.02 X10^3/uL; Basophil% 0.3 % (0-1); Eosinophil# 0.14 X10^3/uL; Eosinophils% 2.4 % (0-5); Hematocrit 41.5 % (37-47); Hemoglobin 13.4 g/dL (12.0-15.0); Lymphocyte # 1.99 X10^3/ul (0.83-4.51); Lymphocyte % 34.3 % (19-41); Mean Corp Hgb Conc 32.3 g/dL (32-36); Mean Corpuscular Hgb 29.2 pg (27.0-32.0); Mean Corpuscular Volume 90.4 fL (81-99); Mean Platelet Vol. 10.6 fl (6.2-12.0); Monocyte# 0.55 X10^3/uL; Monocyte% 9.5 % (0-10); NRBC Flagged by Analyzer 0 % (0-5); Neutrophil # 3.08 X10^3/uL (2.7-7.7); Platelet Count 242 K/mm3 (150-450); RBC Distribution Width CV 12.8 % (11.6-14.6); RBC Distribution Width SD 42.1 fl (35.1-43.9); Red Blood Count 4.59 M/mm3 (4.2-5.4); White Blood Count 5.8 K/mm3 (4.4-11.0)
[2021-01-01 17:40] LABS: Anion Gap 7 (5-15); BUN 19 mg/dL (7-18); Calcium,Total 9.3 mg/dL (8.5-10.1); Chloride 103 mmol/L (98-107); Creatinine, Serum 1.27 mg/dL (0.55-1.02); EST Glomerular Filtration Rate 44 mL/min (>60); Est Glom Filt Rate - Afr Amer 54 mL/min (>60); Estimated Creatinine Clearance 74.84 ml/min; Glucose 105 mg/dL (74-106); Potassium 3.9 mmol/L (3.5-5.1); Sodium Level 140 mmol/L (136-145)
[2021-01-01 18:15] VITALS: PULSE 88; RESP 18; TEMP 37; O2SAT 98
== END 2021-01-01 18:16 | disposition home or self-care (01) ==
PROVIDERS: Emergency Provider Emergency Medicine; PCP Family Medicine
DX: U07.1 COVID-19 (principal); J12.82 Pneumonia due to coronavirus disease 2019; R19.7 Diarrhea, unspecified; I11.9 Hypertensive heart disease without heart failure; I24.8 Other forms of acute ischemic heart disease; D68.51 Activated protein C resistance; D50.9 Iron deficiency anemia, unspecified; J45.909 Unspecified asthma, uncomplicated; M19.90 Unspecified osteoarthritis, unspecified site; K21.9 Gastro-esophageal reflux disease without esophagitis; G47.33 Obstructive sleep apnea (adult) (pediatric); E66.9 Obesity, unspecified; Z79.01 Long term (current) use of anticoagulants; Z79.1 Long term (current) use of non-steroidal anti-inflammatories (NSAID); Z79.899 Other long term (current) drug therapy; I25.2 Old myocardial infarction; Z87.891 Personal history of nicotine dependence
CPT/HCPCS: 71045; 80048; 85025; 87426; 94760; 99283

== ENCOUNTER 2021-04-14 09:41 | Outpatient (CLI) | payer MEDICARE, SELFPAY ==
[2021-04-14 11:26] LABS: Cholesterol 208 mg/dL (200); High Density Lipoprotein 54 mg/dL; Triglycerides 178 mg/dL; Very Low Density Lipoprotein 36 mg/dL (5-40)
== END 2021-04-14 23:59 | disposition short-term general hospital (02) ==
LOC: LAB 09:44
PROVIDERS: PCP Family Medicine; Referring Provider Family Medicine; Visit Provider Family Medicine
DX: E78.2 Mixed hyperlipidemia (principal); R39.9 Unspecified symptoms and signs involving the genitourinary system
CPT/HCPCS: 36415; 80061

== ENCOUNTER → 2021-10-20 | Outpatient (CLI) | payer MEDICARE, SELFPAY ==
[2021-10-20 11:10] LABS: ALB/GLOB Ratio 1.1 RATIO (0.9-2.4); AST(SGOT) 13 U/L (15-37); Alanine Aminotransfer ALT/SGPT 17 U/L (13-56); Albumin, Serum 3.6 g/dL (3.2-5.0); Alkaline Phosphatase 71 U/L (45-117); Anion Gap 5 (5-15); BUN 20 mg/dL (7-18); BUN/Creat Ratio 19.6 RATIO (10-20); Calcium,Total 9.2 mg/dL (8.5-10.1); Chloride 106 mmol/L (98-107); Cholesterol 192 mg/dL (200); Creatinine, Serum 1.02 mg/dL (0.55-1.02); EST Glomerular Filtration Rate 57 mL/min (>60); Est Glom Filt Rate - Afr Amer 69 mL/min (>60); Globulin 3.4 g/dL (2.2-4.2); Glucose 102 mg/dL (74-106); High Density Lipoprotein 47 mg/dL; Potassium 3.9 mmol/L (3.5-5.1); Sodium Level 143 mmol/L (136-145); Triglycerides 170 mg/dL; Very Low Density Lipoprotein 34 mg/dL (5-40)
== END | disposition home or self-care (01) ==
LOC: LAB 08:54
PROVIDERS: PCP Family Medicine; Referring Provider Family Medicine; Visit Provider Family Medicine
DX: I10 Essential (primary) hypertension (principal)
CPT/HCPCS: 36415; 80053; 80061

== ENCOUNTER → 2022-04-12 | Outpatient (CLI) | payer MEDICARE, SELFPAY ==
[2022-04-12 08:41] LABS: Anion Gap 6 (5-15); BUN 17 mg/dL (7-18); BUN/Creat Ratio 17.3 RATIO (10-20); Calcium,Total 9.3 mg/dL (8.5-10.1); Chloride 101 mmol/L (98-107); Creatinine, Serum 0.98 mg/dL (0.55-1.02); EST Glomerular Filtration Rate 60 mL/min (>60); Est Glom Filt Rate - Afr Amer 72 mL/min (>60); Glucose 111 mg/dL (74-106); Sodium Level 141 mmol/L (136-145)
== END | disposition home or self-care (01) ==
LOC: LAB 07:57
PROVIDERS: PCP Family Medicine; Visit Provider Family Medicine
DX: N18.30 Chronic kidney disease, stage 3 unspecified (principal)
CPT/HCPCS: 36415; 80048

== ENCOUNTER → 2022-11-04 | Outpatient (CLI) | payer MEDICARE, SELFPAY ==
[2022-11-04 09:48] LABS: AST(SGOT) 11 U/L (15-37); Alanine Aminotransfer ALT/SGPT 21 U/L (13-56); Albumin, Serum 3.6 g/dL (3.2-5.0); Alkaline Phosphatase 85 U/L (45-117); Anion Gap 4 (5-15); BUN 28 mg/dL (7-18); BUN/Creat Ratio 24.1 RATIO (10-20); Calcium,Total 9.4 mg/dL (8.5-10.1); Chloride 105 mmol/L (98-107); Cholesterol 218 mg/dL (200); Creatinine, Serum 1.16 mg/dL (0.55-1.02); EST Glomerular Filtration Rate 49 mL/min (>60); Est Glom Filt Rate - Afr Amer 59 mL/min (>60); Globulin 3.7 g/dL (2.2-4.2); Glucose 93 mg/dL (74-106); High Density Lipoprotein 65 mg/dL; Potassium 3.8 mmol/L (3.5-5.1); Protein, Total 7.3 g/dL (6.4-8.2); Sodium Level 140 mmol/L (136-145); Triglycerides 162 mg/dL; Very Low Density Lipoprotein 32 mg/dL (5-40)
[2022-11-04 10:14] LABS: Hemoglobin A1c 5.9 % (3.8-5.6)
== END | disposition home or self-care (01) ==
LOC: LAB 08:12
PROVIDERS: PCP Family Medicine; Referring Provider Family Medicine; Visit Provider Family Medicine
DX: I10 Essential (primary) hypertension (principal); R73.01 Impaired fasting glucose
CPT/HCPCS: 36415; 80053; 80061; 83036